=== PATIENT | female | born 1955 | race Two or more races ===

== ENCOUNTER 2024-02-09 15:45 | Inpatient (IN) | payer OTHER ==
[~2024-02-09] VITALS: Ht 121.9 cm; Wt 72.6 kg
[2024-02-09] MEDS ORDERED: COZAAR100 MG PO (15:57)
[2024-02-09] MEDS ORDERED: LIPITOR40 MG PO (15:58)
[2024-02-09] MEDS ORDERED: TOPROL XL25 M1 PO (15:58)
[2024-02-09] MEDS ORDERED: NEURONTIN300 MG PO (15:58)
[2024-02-09] MEDS ORDERED: GLIMEPIRIDE2 MG (15:59)
[2024-02-09] MEDS ORDERED: ISOSORBIDE MONO60 MG (15:59)
[2024-02-09] MEDS ORDERED: LANTUS SOL100 UNIT/1 (15:59)
--- NOTE | 2024-02-09 16:11 | NUR ---
PTE ALERTA Y ORIENTADA X3, SE MADHURI S/V. PTE REFIERE QUE DESDE HACE DOS SEMANAS PRESENTA ULCERA EN EL PIE EVELINA. SE OBNSERVA AREA INFECTADA Y CON INFLAMACION. AL MOMENTO DE TRIAGE BP 190/100, SE REALIZA EKG Y SE PRESENTA A DR. SOSA. SE UBICA EN ROZINA AREA DE OBSERVACION.
[2024-02-09] MEDS ORDERED: SODIUM CHLORIDE 0.45 % 1,000 ML IV SCH (17:00)
[2024-02-09] MEDS ORDERED: cloNIDine HCL 0.2 MG TABLET PO ONE (17:00)
[2024-02-09] MEDS ORDERED: ENALAPRILAT DIHYDRATE 2.5 MG/2 ML VIAL IV ONE (17:00)
[2024-02-09 17:49] LABS: ERYTHROCYTE SEDIMENTATION RATE 47 mm/hr
[2024-02-09 17:56] LABS: MEAN CELL VOLUME 82.9 fL (80.00-100.00); MEAN CORPUSCULAR HGB CONC 33.3 g/dl (32.0-36.0); PLATELET COUNT 299 K/uL (150-450); RED BLOOD COUNT 2.83 M/uL (4.00-6.00); RED CELL DISTRIBUTION WIDTH 13.6 % (11.5-14.5)
[2024-02-09 17:57] LABS: HEMATOCRIT 23.5 % (36.0-45.00); MEAN CORPUSCULAR HEMOGLOBIN 27.5 pg (27.00-32.0)
[2024-02-09 17:58] LABS: HEMOGLOBIN 7.8 g/dL (12.0-15.00)
[2024-02-09 18:25] LABS: ALBUMIN 2.7 gm/dL (3.4-5.0); BILIRUBIN TOTAL 0.27 mg/dL (0.3-1.2); CALCIUM 8.7 mg/dL (8.5-10.1); CREATININE SERUM 2.04 mg/dL (0.55-1.02); GFR 24.36; GLOBULINA 4.2 G/DL (2.4-3.5); POTASSIUM 4.73 mEq/L (3.5-5.1); TOTAL PROTEIN 6.9 gm/dL (6.4-8.2)
--- NOTE | 2024-02-09 18:31 | NUR ---
SE ORIENTA A PACIENTE SOBRE [place] MEDICO, REFIERE ENTENDER. SE REALIZAN MUESTRAS DE LABORATORIO BAJO MEDIDAS ASEPTICAS. SE ADMINISTRAN MEDICAMENTOS ISABELL ORDEN MEDICA. PENDIENTE RE-EVALUACION MEDICA.
[2024-02-09 19:06] LABS: C-REACTIVE PROTEIN 1.56 MG/DL (0.00-0.29)
[2024-02-09] MEDS ORDERED: FUROsemide 20 MG/2 ML VIAL IV SCH (19:30)
[2024-02-09] MEDS ORDERED: CEFTRIAXONE SODIUM 1,000 MG VIAL IV ONE (19:30)
[2024-02-09] MEDS ORDERED: hydrALAZINE HCL 20 MG VIAL IV STA (19:48)
[2024-02-09] MEDS ORDERED: AMLODIPINE BESYLATE 5 MG TABLET PO SCH (19:49)
[2024-02-09] MEDS ORDERED: hydrALAZINE HCL 20 MG VIAL IV PRN (20:00)
--- NOTE | 2024-02-09 21:40 | NUR ---
SE ORIENTA A PACIENTE SOBRE PROCESO DE TRANSFUSION, SE COLECTAN MUESTRAS PARA DOS UNIDADES DE PRBC, SE LLENA DOCUMENTO DE REQUISION Y SE LLEVAN AL LABORATORIO. SE COLECTA MUESTRA DE TIPO Y ABNER YA QUE PACIENTE NO TIENE EXPENDIENTE EN BANCO DE VEGA. PACIENTE FIRMA CONSENTIMIENTO DE TRANSFUSION DE VEGA, SE ANEJA AL EXPENDIENTE MEDICO.
[2024-02-09] MEDS ORDERED: 0.9 % SODIUM CHLORIDE 1,000 ML IV SCH (21:45)
[2024-02-09] MEDS ORDERED: LINEZOLID IN DEXTROSE 5% 300 ML IV SCH (21:53)
[2024-02-09 21:55] LABS: CHOL HDL RATIO 3.2 (0-5.0); TSH 1.98 uIU/mL (0.358-3.74)
[2024-02-09] MEDS ORDERED: CEFEPIME HCL 2,000 MG in 0.9 % SODIUM CHLORIDE 100 ML IV SCH (21:55)
[2024-02-09] MEDS ORDERED: DEXTROSE 50 % IN WATER 0.5 G/ML DISP.SYRIN IV PRN (22:00)
[2024-02-09] MEDS ORDERED: INSULIN LISPRO 1,000 UNIT/10 ML UNITS SUBCUTANEO PRN (22:00)
[2024-02-09 23:07] LABS: PH,URINE 5.5 (5.0-8.0); URINE APPEARANCE Clear; URINE BILIRRUBIN Negative (NEGATIVE); URINE BLOOD Moderate; URINE COLOR Yellow; URINE KETONE Negative (NEGATIVE); URINE LEUKOCYTE Negative; URINE NITRATE Negative; URINE UROBILINOGEN 0.2 E.U./dl
[2024-02-09 23:10] LABS: URINE BACTERIA 6491.3 uL (0.0-1933); URINE CAST 5.64 uL (0.0-1.40); URINE EPITHELIAL CELLS 49.3 uL (0.0-38.8); URINE RBC 29.3 uL (0.0-20.8); URINE WBC 43.7 uL (0.0-23.2)
[2024-02-10 00:58] LABS: URINE GLUCOSE >=1000 MG/DL (NEGATIVE); URINE PROTEIN 300 (NEGATIVE)
[2024-02-10 02:48] VITALS: BP 130/78
[2024-02-10 03:25] LABS: INR 1.02; PARTIAL THROMBOPLASTIN TIME 26.7 SECONDS (22.0-34.0); PROTHROMBIN TIME 11.1 SECONDS (9.0-11.5)
[2024-02-10 04:55] VITALS: BP 174/77; O2SAT 96
[2024-02-10] MEDS ORDERED: ATORVASTATIN CALCIUM 40 MG TABLET PO SCH (09:00)
[2024-02-10] MEDS ORDERED: METOPROLOL SUCCINATE 25 MG TAB.SR.24H PO SCH (09:00)
[2024-02-10] MEDS ORDERED: LOSARTAN POTASSIUM 100 MG TABLET PO SCH (09:00)
[2024-02-10] MEDS ORDERED: ISOSORBIDE MONONITRATE 60 MG TABLET PO SCH (09:00)
[2024-02-10] MEDS ORDERED: FAMOTIDINE/PF 20 MG in 0.9 % SODIUM CHLORIDE 8 ML IV PUSH SCH (09:00)
[2024-02-10] MEDS ORDERED: ENOXAPARIN SODIUM 30 MG/0.3 ML SYRINGE SUBCUTANEO SCH (09:00)
[2024-02-10] MEDS ORDERED: GABAPENTIN 300 MG CAPSULE PO SCH (09:00)
[2024-02-10] MEDS ORDERED: AMLODIPINE BESYLATE 5 MG TABLET PO STA (11:08)
[2024-02-10] MEDS ORDERED: SODIUM HYPOCHLORITE 1OZ TOP SCH (11:52)
[2024-02-10] MEDS ORDERED: LINEZOLID IN DEXTROSE 5% 300 ML IV SCH (17:00)
[2024-02-10 17:48] VITALS: BP 162/80; O2SAT 96
[2024-02-10] MEDS ORDERED: METOPROLOL SUCCINATE 25 MG TAB.SR.24H PO STA (17:55)
[2024-02-10] MEDS ORDERED: hydrALAZINE HCL 25 MG TABLET PO SCH (17:56)
[2024-02-10] MEDS ORDERED: ONDANSETRON HCL 2 MG/ML VIAL IV PRN (20:45)
[2024-02-10] MEDS ORDERED: PANTOPRAZOLE SODIUM 40 MG/VIAL VIAL IV PUSH ONE (20:45)
[2024-02-10] MEDS ORDERED: DOXAZOSIN MESYLATE 4 MG TABLET PO SCH (22:49)
[2024-02-10] MEDS ORDERED: HYDROCHLOROTHIAZIDE 12.5 MG CAPSULE PO SCH (22:54)
[2024-02-11 03:23] VITALS: BP 149/79; O2SAT 95
[2024-02-11 08:08] VITALS: BP 145/72; O2SAT 100
[2024-02-11] MEDS ORDERED: METOPROLOL SUCCINATE 50 MG TAB.SR.24H PO SCH (09:00)
[2024-02-11] MEDS ORDERED: SODIUM HYPOCHLORITE 1OZ TOP SCH (09:00)
[2024-02-11] MEDS ORDERED: IRBESARTAN 300 MG TABLET PO SCH (09:00)
[2024-02-11] MEDS ORDERED: LINEZOLID 600 MG TABLET PO SCH ×2 (09:00→17:00)
[2024-02-11] MEDS ORDERED: NIFEDIPINE 60 MG TAB.SA.OSM PO SCH (09:00)
[2024-02-11] MEDS ORDERED: AMLODIPINE BESYLATE 10 MG TABLET PO SCH (09:00)
[2024-02-11] MEDS ORDERED: METROnidazole 500 MG TABLET PO SCH (09:00)
[2024-02-11] MEDS ORDERED: BENZONATATE 100 MG CAPSULE PO SCH (09:00)
[2024-02-11] MEDS ORDERED: PANTOPRAZOLE SODIUM 40 MG TABLET.DR PO SCH (09:00)
[2024-02-11 10:22] VITALS: BP 145/72; O2SAT 99
[2024-02-11 13:21] LABS: HEMATOCRIT 29.1 % (36.0-45.00); MEAN CELL VOLUME 88.7 fL (80.00-100.00); MEAN CORPUSCULAR HGB CONC 32.8 g/dl (32.0-36.0); PLATELET COUNT 245 K/uL (150-450); RED BLOOD COUNT 3.28 M/uL (4.00-6.00); RED CELL DISTRIBUTION WIDTH 15.2 % (11.5-14.5)
[2024-02-11 13:48] LABS: HEMOGLOBIN 9.6 g/dL (12.0-15.00); MEAN CORPUSCULAR HEMOGLOBIN 29.2 pg (27.00-32.0)
[2024-02-11] MEDS ORDERED: DIPHENHYDRAMINE HCL 50 MG/ML VIAL 1ML IV STA (14:03)
[2024-02-11] MEDS ORDERED: MORPHINE SULFATE 2 MG/ML CARTRIDGE IV STA (14:03)
[2024-02-11] MEDS ORDERED: KETOROLAC TROMETHAMINE 30 MG VIAL IV STA (14:04)
[2024-02-11 14:47] LABS: ALBUMIN 2.7 gm/dL (3.4-5.0); BILIRUBIN TOTAL 0.68 mg/dL (0.3-1.2); CALCIUM 8.4 mg/dL (8.5-10.1); CREATININE SERUM 2.3 mg/dL (0.55-1.02); GFR 21.21; GLOBULINA 3.6 G/DL (2.4-3.5); MAGNESIUM 2.1 mg/dL (1.8-2.4); PHOSPHOROUS 5.8 mg/dL (2.5-4.9); POTASSIUM 5.2 mEq/L (3.5-5.1); TOTAL PROTEIN 6.3 gm/dL (6.4-8.2)
[2024-02-11] MEDS ORDERED: hydrALAZINE HCL 25 MG TABLET PO SCH (17:00)
[2024-02-11] MEDS ORDERED: RINGERS SOLUTION,LACTATED 250 ML IV STA (20:18)
[2024-02-11] MEDS ORDERED: SODIUM POLYSTYRENE SULFONATE 30G/8 TSP PO ONE (20:30)
[2024-02-11] MEDS ORDERED: Calcium Acetate 667 MG CAP PO SCH (20:30)
[2024-02-11] MEDS ORDERED: GABAPENTIN 600 MG TABLET PO SCH (21:00)
[2024-02-11 21:34] VITALS: BP 88/49; O2SAT 100
[2024-02-12] VITALS (25 sets, daily range): BP systolic 65–196; BP diastolic 34–90; O2SAT 81–100
[2024-02-12] MEDS ORDERED: ATROPINE SULFATE 0.4 MG/ML VIAL IV STA (00:20)
[2024-02-12] MEDS ORDERED: DOPamine HCL IN DEXTROSE 5 % 250 ML IV SCH ×2 (00:30→08:45)
[2024-02-12] MEDS ORDERED: RINGERS SOLUTION,LACTATED 1,000 ML IV STA (00:31)
[2024-02-12] MEDS ORDERED: SODIUM BICARBONATE 1 MEQ/ML DISP.SYRIN 50ML IV ONE ×2 (01:15→09:15)
[2024-02-12 01:27] LABS: HEMATOCRIT 26.6 % (36.0-45.00); MEAN CELL VOLUME 87.2 fL (80.00-100.00); MEAN CORPUSCULAR HGB CONC 33.5 g/dl (32.0-36.0); PLATELET COUNT 241 K/uL (150-450); RED BLOOD COUNT 3.05 M/uL (4.00-6.00); RED CELL DISTRIBUTION WIDTH 15.4 % (11.5-14.5)
[2024-02-12 01:40] LABS: MEAN CORPUSCULAR HEMOGLOBIN 29.1 pg (27.00-32.0)
[2024-02-12 01:41] LABS: HEMOGLOBIN 8.9 g/dL (12.0-15.00)
[2024-02-12 01:53] LABS: ALBUMIN 2.5 gm/dL (3.4-5.0); BILIRUBIN TOTAL 0.39 mg/dL (0.3-1.2); CALCIUM 8.3 mg/dL (8.5-10.1); CREATININE SERUM 2.68 mg/dL (0.55-1.02); GFR 17.73; MAGNESIUM 2.3 mg/dL (1.8-2.4); PHOSPHOROUS 6.3 mg/dL (2.5-4.9); POTASSIUM 5.75 mEq/L (3.5-5.1); TOTAL PROTEIN 5.5 gm/dL (6.4-8.2)
[2024-02-12] MEDS ORDERED: SODIUM BICARBONATE 100 MEQ in SODIUM CHLORIDE 0.45 % 1,000 ML IV SCH ×2 (02:00→08:45)
[2024-02-12 02:12] LABS: TSH 2.72 uIU/mL (0.358-3.74)
[2024-02-12] MEDS ORDERED: SODIUM POLYSTYRENE SULFONATE 30G/8 TSP PO SCH (02:19)
[2024-02-12 02:48] LABS: ABG PO2 106.4 mmHg (80-100); ABG pCO2 53.9 mmHg (35-45); BASE EXCESS -11.4 mmol/l; BICARBONATE 17.9 mmol/l (23-25); SaO2 95.2 %; Tco2 19.6 mmol/l
[2024-02-12 02:49] LABS: allen test SATISFACTORY; o2 28 %; puncture site RADIAL RIGHT
[2024-02-12] MEDS ORDERED: METRONIDAZOLE/SODIUM CHLORIDE 100 ML IV SCH (02:59)
[2024-02-12 06:31] LABS: ABG pCO2 50.1 mmHg (35-45); BICARBONATE 17.6 mmol/l (23-25); Tco2 19.1 mmol/l; allen test SATISFACTORY; o2 32 %; puncture site RADIAL RIGHT
[2024-02-12 06:32] LABS: ABG PH 7.163 (7.35-7.45)
[2024-02-12 06:33] LABS: ABG PO2 59.8 mmHg (80-100); SaO2 80.3 %
[2024-02-12 06:35] LABS: BASE EXCESS 11.1 mmol/l
[2024-02-12 08:30] LABS: HEMATOCRIT 27.7 % (36.0-45.00); HEMOGLOBIN 9.4 g/dL (12.0-15.00); MEAN CELL VOLUME 87.3 fL (80.00-100.00); MEAN CORPUSCULAR HEMOGLOBIN 29.5 pg (27.00-32.0); MEAN CORPUSCULAR HGB CONC 33.8 g/dl (32.0-36.0); PLATELET COUNT 260 K/uL (150-450); RED BLOOD COUNT 3.17 M/uL (4.00-6.00); RED CELL DISTRIBUTION WIDTH 15.2 % (11.5-14.5)
[2024-02-12 08:57] LABS: ABG PO2 80.9 mmHg (80-100); ABG pCO2 52.3 mmHg (35-45); BASE EXCESS -8.8 mmol/l; BICARBONATE 19.7 mmol/l (23-25); SaO2 91.7 %; Tco2 21.3 mmol/l
[2024-02-12] MEDS ORDERED: AMINO ACIDS/PROTEIN HYDROLYS 30 ML BLIST.PACK PO SCH (09:00)
[2024-02-12] MEDS ORDERED: SOD FERRIC GLUC COMPLX/SUCROSE 62.5 MG in 0.9 % SODIUM CHLORIDE 50 ML IV SCH (09:00)
[2024-02-12] MEDS ORDERED: CEFEPIME HCL 2,000 MG in 0.9 % SODIUM CHLORIDE 100 ML IV SCH (09:00)
[2024-02-12] MEDS ORDERED: PANTOPRAZOLE SODIUM 40 MG/VIAL VIAL IV SCH (09:00)
[2024-02-12 09:27] LABS: ALBUMIN 2.7 gm/dL (3.4-5.0); BILIRUBIN TOTAL 0.48 mg/dL (0.3-1.2); CREATININE SERUM 2.79 mg/dL (0.55-1.02); GFR 16.92; GLOBULINA 3.6 G/DL (2.4-3.5); PHOSPHOROUS 6.3 mg/dL (2.5-4.9); POTASSIUM 5.84 mEq/L (3.5-5.1); TOTAL PROTEIN 6.3 gm/dL (6.4-8.2)
[2024-02-12] MEDS ORDERED: NOREPINEPHRINE BITARTRATE 8 MG in DEXTROSE 5 % IN WATER 250 ML IV SCH (12:15)
[2024-02-12] MEDS ORDERED: ATROPINE SULFATE 0.1 MG/ML DISP.SYRIN IV STA (12:25)
[2024-02-12 12:26] LABS: ABG PH 7.194 (7.35-7.45)
[2024-02-12 12:27] LABS: allen test SATISFACTORY; o2 50 %; puncture site RADIAL LEFT
[2024-02-12] MEDS ORDERED: PROPOFOL 100 ML IV SCH (12:30)
[2024-02-12 14:38] LABS: ABG PO2 60.8 mmHg (80-100); ABG pCO2 63.2 mmHg (35-45); BASE EXCESS -7.1 mmol/l; BICARBONATE 22.5 mmol/l (23-25); SaO2 81.9 %; Tco2 24.5 mmol/l
[2024-02-12 14:39] LABS: allen test SATISFACTORY; o2 100 %; puncture site RADIAL RIGHT
[2024-02-12] MEDS ORDERED: CARBOXYMETHYLCELLULOSE SODIUM 1 EACH DROPERETTE OP SCH (17:00)
[2024-02-12] MEDS ORDERED: CHLORHEXIDINE GLUCONATE 15ML BRUSH KIT MM SCH (17:00)
[2024-02-12] MEDS ORDERED: MEROPENEM 500 MG/VIAL VIAL IV SCH (17:24)
[2024-02-12] MEDS ORDERED: MIDAZOLAM HCL 100 MG in 0.9 % SODIUM CHLORIDE 100 ML IV SCH (18:45)
[2024-02-12 19:27] LABS: BASE EXCESS -7.7 mmol/l; BICARBONATE 22.8 mmol/l (23-25); SaO2 53.4 %; Tco2 24.9 mmol/l
[2024-02-12 20:26] LABS: ABG PH 7.133 (7.35-7.45); ABG pCO2 69.6 mmHg (35-45)
[2024-02-12 20:27] LABS: ABG PO2 39.1 mmHg (80-100); o2 100 %
[2024-02-12 20:28] LABS: allen test SATISFACTORY; puncture site RADIAL RIGHT
[2024-02-12 20:56] LABS: ABG PH 7.271 (7.35-7.45); ABG PO2 425.9 mmHg (80-100); ABG pCO2 45.4 mmHg (35-45); BASE EXCESS -6.4 mmol/l; BICARBONATE 20.5 mmol/l (23-25); SaO2 99.9 %; Tco2 21.9 mmol/l; allen test SATISFACTORY; o2 100 %; puncture site RADIAL RIGHT
[2024-02-12] MEDS ORDERED: METHYLPREDNISOLONE SOD SUCC 40 MG VIAL IV SCH (21:00)
[2024-02-12] MEDS ORDERED: SODIUM POLYSTYRENE SULFONATE 30G/8 TSP PO STA (21:01)
[2024-02-13] VITALS (24 sets, daily range): BP systolic 121–178; BP diastolic 58–88; O2SAT 100
[2024-02-13 08:20] LABS: HEMATOCRIT 27.7 % (36.0-45.00); HEMOGLOBIN 9.6 g/dL (12.0-15.00); MEAN CELL VOLUME 86.5 fL (80.00-100.00); MEAN CORPUSCULAR HGB CONC 34.7 g/dl (32.0-36.0); PLATELET COUNT 244 K/uL (150-450); RED BLOOD COUNT 3.21 M/uL (4.00-6.00); RED CELL DISTRIBUTION WIDTH 15.5 % (11.5-14.5)
[2024-02-13 08:37] LABS: ALBUMIN 2.4 gm/dL (3.4-5.0); BILIRUBIN TOTAL 0.52 mg/dL (0.3-1.2); CALCIUM 7.7 mg/dL (8.5-10.1); CREATININE SERUM 3.21 mg/dL (0.55-1.02); GFR 14.4; GLOBULINA 3.4 G/DL (2.4-3.5); MAGNESIUM 1.9 mg/dL (1.8-2.4); POTASSIUM 4.88 mEq/L (3.5-5.1); TOTAL PROTEIN 5.8 gm/dL (6.4-8.2)
[2024-02-13 08:43] LABS: ABG PH 7.483 (7.35-7.45); ABG PO2 128.9 mmHg (80-100); ABG pCO2 27.5 mmHg (35-45); BASE EXCESS -1.7 mmol/l; BICARBONATE 20.2 mmol/l (23-25); SaO2 99.1 %; allen test SATISFACTORY; o2 70 %; puncture site RADIAL LEFT
[2024-02-13] MEDS ORDERED: hydrALAZINE HCL 20 MG VIAL IV PRN (12:15)
[2024-02-13] MEDS ORDERED: AA 4.25%/CAL/LYTES/DEXT 5% 1,000 ML PERIFERAL SCH (17:00)
[2024-02-13 17:21] LABS: CHOL HDL RATIO 2.1 (0-5.0)
[2024-02-14] VITALS (12 sets, daily range): BP systolic 133–182; BP diastolic 58–84; O2SAT 100
[2024-02-14 06:28] LABS: HEMATOCRIT 24.7 % (36.0-45.00); MEAN CELL VOLUME 85.2 fL (80.00-100.00); MEAN CORPUSCULAR HGB CONC 34.7 g/dl (32.0-36.0); PLATELET COUNT 207 K/uL (150-450); RED BLOOD COUNT 2.89 M/uL (4.00-6.00); RED CELL DISTRIBUTION WIDTH 16.3 % (11.5-14.5)
[2024-02-14 06:53] LABS: MEAN CORPUSCULAR HEMOGLOBIN 29.7 pg (27.00-32.0)
[2024-02-14 06:54] LABS: HEMOGLOBIN 8.6 g/dL (12.0-15.00)
[2024-02-14 07:00] LABS: ALBUMIN 1.9 gm/dL (3.4-5.0); BILIRUBIN TOTAL 0.39 mg/dL (0.3-1.2); CALCIUM 7.4 mg/dL (8.5-10.1); CREATININE SERUM 3.45 mg/dL (0.55-1.02); GFR 13.25; MAGNESIUM 1.8 mg/dL (1.8-2.4); PHOSPHOROUS 5.8 mg/dL (2.5-4.9); POTASSIUM 3.75 mEq/L (3.5-5.1); TOTAL PROTEIN 4.9 gm/dL (6.4-8.2)
[2024-02-14] MEDS ORDERED: hydrALAZINE HCL 25 MG TABLET PO SCH (09:00)
[2024-02-14 10:00] LABS: ABG PH 7.446 (7.35-7.45); ABG PO2 144.9 mmHg (80-100); BASE EXCESS -0.5 mmol/l; BICARBONATE 22.9 mmol/l (23-25); SaO2 99.3 %; Tco2 23.9 mmol/l
[2024-02-14 10:01] LABS: allen test SATISFACTORY; o2 40 %; puncture site RADIAL RIGHT
[2024-02-14] MEDS ORDERED: ALBUMIN HUMAN 100 ML VIAL IV SCH (13:00)
[2024-02-14] MEDS ORDERED: LINEZOLID 600 MG TABLET PO SCH (17:00)
[2024-02-14] MEDS ORDERED: RINGERS SOLUTION,LACTATED 500 ML IV STA (17:39)
[2024-02-15] VITALS (13 sets, daily range): BP systolic 149–189; BP diastolic 67–83; O2SAT 100
[2024-02-15 06:56] LABS: HEMATOCRIT 27.1 % (36.0-45.00); HEMOGLOBIN 9.2 g/dL (12.0-15.00); MEAN CELL VOLUME 86.5 fL (80.00-100.00); MEAN CORPUSCULAR HEMOGLOBIN 29.3 pg (27.00-32.0); MEAN CORPUSCULAR HGB CONC 33.9 g/dl (32.0-36.0); PLATELET COUNT 241 K/uL (150-450); RED BLOOD COUNT 3.13 M/uL (4.00-6.00); RED CELL DISTRIBUTION WIDTH 16.6 % (11.5-14.5)
[2024-02-15 07:15] LABS: ALBUMIN 2.7 gm/dL (3.4-5.0); BILIRUBIN TOTAL 0.42 mg/dL (0.3-1.2); CALCIUM 7.8 mg/dL (8.5-10.1); CREATININE SERUM 3.54 mg/dL (0.55-1.02); GFR 12.86; GLOBULINA 2.9 G/DL (2.4-3.5); MAGNESIUM 2.2 mg/dL (1.8-2.4); PHOSPHOROUS 5.9 mg/dL (2.5-4.9); POTASSIUM 3.46 mEq/L (3.5-5.1); TOTAL PROTEIN 5.6 gm/dL (6.4-8.2)
[2024-02-15] MEDS ORDERED: POTASSIUM CHLORIDE 20MEQ/100ML H2O PB IV NR (08:00)
[2024-02-15] MEDS ORDERED: INSULIN NPH HUMAN ISOPHANE 1,000 UNITS/10 ML UNITS SUBCUTANEO SCH (09:00)
[2024-02-15 09:40] LABS: ABG PH 7.416 (7.35-7.45); ABG PO2 162.2 mmHg (80-100); ABG pCO2 33.1 mmHg (35-45); BASE EXCESS -2.8 mmol/l; BICARBONATE 20.8 mmol/l (23-25); SaO2 99.4 %; Tco2 21.8 mmol/l
[2024-02-15] MEDS ORDERED: RINGERS SOLUTION,LACTATED 1,000 ML IV SCH (11:00)
[2024-02-15 15:43] LABS: allen test SATISFACTORY; o2 40 %; puncture site RADIAL RIGHT
[2024-02-15] MEDS ORDERED: AMLODIPINE BESYLATE 5 MG TABLET PO SCH (20:20)
[2024-02-15 21:15] LABS: PLEURAL FLUID APPEARANCE HAZY; PLEURAL FLUID COLOR YELLOW
[2024-02-15 21:41] LABS: TP PLEURAL FLUID 1.9 g/dl
[2024-02-15 22:27] LABS: MONONUCLEAR 95 %; POLYMORPHONUCLEAR 5 %
[2024-02-16] VITALS (15 sets, daily range): BP systolic 140–188; BP diastolic 69–101; O2SAT 100
[2024-02-16 06:24] LABS: HEMATOCRIT 30.3 % (36.0-45.00); HEMOGLOBIN 10.2 g/dL (12.0-15.00); MEAN CELL VOLUME 86.6 fL (80.00-100.00); MEAN CORPUSCULAR HEMOGLOBIN 29.1 pg (27.00-32.0); MEAN CORPUSCULAR HGB CONC 33.6 g/dl (32.0-36.0); PLATELET COUNT 273 K/uL (150-450); RED CELL DISTRIBUTION WIDTH 16.3 % (11.5-14.5)
[2024-02-16 06:41] LABS: ALBUMIN 2.8 gm/dL (3.4-5.0); BILIRUBIN TOTAL 0.29 mg/dL (0.3-1.2); CALCIUM 8.2 mg/dL (8.5-10.1); CREATININE SERUM 3.41 mg/dL (0.55-1.02); GFR 13.43; PHOSPHOROUS 5.8 mg/dL (2.5-4.9); POTASSIUM 3.9 mEq/L (3.5-5.1); TOTAL PROTEIN 5.8 gm/dL (6.4-8.2)
[2024-02-16 10:56] LABS: ABG PH 7.445 (7.35-7.45); ABG PO2 136.5 mmHg (80-100); ABG pCO2 32.7 mmHg (35-45); BASE EXCESS -1.2 mmol/l; SaO2 99.2 %
[2024-02-16 10:57] LABS: allen test SATISFACTORY; o2 40 %; puncture site RADIAL RIGHT
[2024-02-16] MEDS ORDERED: ISOSORBIDE MONONITRATE 30 MG TABLET PO SCH (18:49)
[2024-02-16] MEDS ORDERED: MIDAZOLAM HCL 100 MG in 0.9 % SODIUM CHLORIDE 100 ML IV SCH (19:00)
[2024-02-17] VITALS (9 sets, daily range): BP systolic 150–185; BP diastolic 72–91; O2SAT 100
[2024-02-17] MEDS ORDERED: LACTOBACILLUS ACIDOPHILUS 1 CAP CAP PO SCH (09:00)
[2024-02-17] MEDS ORDERED: ISOSORBIDE DINITRATE 20 MG TABLET PO SCH (09:00)
[2024-02-17] MEDS ORDERED: ISOSORBIDE MONONITRATE 30 MG TABLET PO SCH (09:00)
[2024-02-17] MEDS ORDERED: ISOSORBIDE DINITRATE 10 MG TABLET PO SCH (09:00)
[2024-02-17] MEDS ORDERED: PANTOPRAZOLE SODIUM 80 MG in 0.9 % SODIUM CHLORIDE 100 ML IV SCH (10:15)
[2024-02-17 11:41] LABS: ABG PH 7.379 (7.35-7.45); ABG PO2 155.9 mmHg (80-100); ABG pCO2 39.4 mmHg (35-45); BASE EXCESS -2.1 mmol/l; BICARBONATE 22.7 mmol/l (23-25); SaO2 99.3 %
[2024-02-17 11:42] LABS: allen test SATISFACTORY; o2 40 %; puncture site RADIAL RIGHT
[2024-02-17 13:50] LABS: ABG PH 7.365 (7.35-7.45); ABG PO2 159.3 mmHg (80-100); ABG pCO2 40.5 mmHg (35-45); BASE EXCESS -2.5 mmol/l; BICARBONATE 22.6 mmol/l (23-25); SaO2 99.3 %; Tco2 23.9 mmol/l; allen test SATISFACTORY; o2 40 %; puncture site RADIAL RIGHT
[2024-02-17] MEDS ORDERED: AA 4.25%/CAL/LYTES/DEXT 5% 1,000 ML PERIFERAL SCH (17:00)
[2024-02-17] MEDS ORDERED: LEVALBUTEROL HCL 0.63 MG/3 ML SOLUTION IH SCH (17:00)
[2024-02-17 18:19] LABS: ABG PH 7.384 (7.35-7.45); ABG PO2 112.5 mmHg (80-100); ABG pCO2 38.3 mmHg (35-45); BASE EXCESS -2.3 mmol/l; BICARBONATE 22.3 mmol/l (23-25); SaO2 98.2 %; Tco2 23.5 mmol/l
[2024-02-17 18:33] LABS: allen test SATISFACTORY; o2 50 %; puncture site RADIAL RIGHT
[2024-02-17] MEDS ORDERED: CLEVIDIPINE BUTYRATE 100 ML IV SCH (22:15)
[2024-02-18] VITALS (28 sets, daily range): BP systolic 135–182; BP diastolic 55–86; O2SAT 100
[2024-02-18] MEDS ORDERED: hydrALAZINE HCL 25 MG TABLET PO SCH (01:00)
[2024-02-18 06:45] LABS: HEMATOCRIT 28.9 % (36.0-45.00); HEMOGLOBIN 9.8 g/dL (12.0-15.00); MEAN CORPUSCULAR HEMOGLOBIN 29.5 pg (27.00-32.0); MEAN CORPUSCULAR HGB CONC 33.9 g/dl (32.0-36.0); PLATELET COUNT 262 K/uL (150-450); RED BLOOD COUNT 3.33 M/uL (4.00-6.00); RED CELL DISTRIBUTION WIDTH 15.5 % (11.5-14.5)
[2024-02-18 07:25] LABS: ALBUMIN 2.3 gm/dL (3.4-5.0); BILIRUBIN TOTAL 0.26 mg/dL (0.3-1.2); CALCIUM 8.2 mg/dL (8.5-10.1); CREATININE SERUM 3.2 mg/dL (0.55-1.02); GFR 14.45; GLOBULINA 2.8 G/DL (2.4-3.5); MAGNESIUM 2.2 mg/dL (1.8-2.4); POTASSIUM 4.32 mEq/L (3.5-5.1); TOTAL PROTEIN 5.1 gm/dL (6.4-8.2)
[2024-02-18] MEDS ORDERED: hydrALAZINE HCL 50 MG TABLET PO SCH (09:00)
[2024-02-18] MEDS ORDERED: CLEVIDIPINE BUTYRATE 100 ML IV SCH ×2 (09:00→10:15)
[2024-02-18] MEDS ORDERED: ONDANSETRON HCL 2 MG/ML VIAL IV PRN (14:15)
[2024-02-19] VITALS (26 sets, daily range): BP systolic 144–287; BP diastolic 62–125; O2SAT 100
[2024-02-19 08:05] LABS: ALBUMIN 2.3 gm/dL (3.4-5.0); BILIRUBIN TOTAL 0.29 mg/dL (0.3-1.2); CALCIUM 8.3 mg/dL (8.5-10.1); CREATININE SERUM 3.22 mg/dL (0.55-1.02); GFR 14.34; GLOBULINA 2.7 G/DL (2.4-3.5); POTASSIUM 4.58 mEq/L (3.5-5.1)
[2024-02-19 08:17] LABS: HEMATOCRIT 26.9 % (36.0-45.00); MEAN CELL VOLUME 86.8 fL (80.00-100.00); MEAN CORPUSCULAR HEMOGLOBIN 28.7 pg (27.00-32.0); PLATELET COUNT 210 K/uL (150-450); RED CELL DISTRIBUTION WIDTH 15.8 % (11.5-14.5)
[2024-02-19 08:22] LABS: HEMOGLOBIN 8.9 g/dL (12.0-15.00)
[2024-02-19] MEDS ORDERED: FUROsemide 20 MG/2 ML VIAL IV NR (10:05)
[2024-02-19] MEDS ORDERED: hydrALAZINE HCL 20 MG VIAL IV NR (14:30)
[2024-02-19] MEDS ORDERED: LINEZOLID IN DEXTROSE 5% 300 ML IV SCH (17:00)
[2024-02-19] MEDS ORDERED: FUROsemide 20 MG/2 ML VIAL IV SCH (21:00)
[2024-02-19] MEDS ORDERED: hydrALAZINE HCL 20 MG VIAL IV SCH (21:00)
[2024-02-20] VITALS (22 sets, daily range): BP systolic 112–186; BP diastolic 61–164; O2SAT 100
[2024-02-20 07:42] LABS: ALBUMIN 2.2 gm/dL (3.4-5.0); BILIRUBIN TOTAL 0.27 mg/dL (0.3-1.2); CALCIUM 8.2 mg/dL (8.5-10.1); CREATININE SERUM 3.22 mg/dL (0.55-1.02); GFR 14.34; GLOBULINA 2.7 G/DL (2.4-3.5); POTASSIUM 4.5 mEq/L (3.5-5.1); TOTAL PROTEIN 4.9 gm/dL (6.4-8.2)
[2024-02-20 08:00] LABS: HEMATOCRIT 24.5 % (36.0-45.00); MEAN CELL VOLUME 85.5 fL (80.00-100.00); MEAN CORPUSCULAR HGB CONC 34.9 g/dl (32.0-36.0); PLATELET COUNT 184 K/uL (150-450); RED BLOOD COUNT 2.87 M/uL (4.00-6.00); RED CELL DISTRIBUTION WIDTH 15.8 % (11.5-14.5)
[2024-02-20 08:33] LABS: HEMOGLOBIN 8.6 g/dL (12.0-15.00); MEAN CORPUSCULAR HEMOGLOBIN 29.9 pg (27.00-32.0)
[2024-02-20] MEDS ORDERED: SOD FERRIC GLUC COMPLX/SUCROSE 62.5 MG in 0.9 % SODIUM CHLORIDE 50 ML IV SCH (12:00)
[2024-02-20] MEDS ORDERED: POTASSIUM CHLORIDE IN WATER 40 MEQ/100 ML PIGGYBAG IV SCH (13:00)
[2024-02-21] VITALS (16 sets, daily range): BP systolic 113–180; BP diastolic 51–99; O2SAT 98–105
[2024-02-21 06:45] LABS: INR 0.97; PARTIAL THROMBOPLASTIN TIME 26.7 SECONDS (22.0-34.0); PROTHROMBIN TIME 10.6 SECONDS (9.0-11.5)
[2024-02-21 07:05] LABS: MEAN CELL VOLUME 87.4 fL (80.00-100.00); MEAN CORPUSCULAR HGB CONC 33.3 g/dl (32.0-36.0); PLATELET COUNT 181 K/uL (150-450); RED BLOOD COUNT 2.86 M/uL (4.00-6.00); RED CELL DISTRIBUTION WIDTH 15.7 % (11.5-14.5)
[2024-02-21 07:17] LABS: ALBUMIN 2.3 gm/dL (3.4-5.0); BILIRUBIN TOTAL 0.34 mg/dL (0.3-1.2); CALCIUM 8.5 mg/dL (8.5-10.1); CHOL HDL RATIO 2.2 (0-5.0); CREATININE SERUM 3.18 mg/dL (0.55-1.02); GFR 14.55; GLOBULINA 2.9 G/DL (2.4-3.5); MAGNESIUM 2.3 mg/dL (1.8-2.4); PHOSPHOROUS 7.5 mg/dL (2.5-4.9); POTASSIUM 5.04 mEq/L (3.5-5.1); TOTAL PROTEIN 5.2 gm/dL (6.4-8.2)
[2024-02-21 07:20] LABS: HEMOGLOBIN 8.3 g/dL (12.0-15.00)
[2024-02-21 10:44] LABS: UREA CLEARANCE 3.2 ML/MIN
[2024-02-21] MEDS ORDERED: Calcium Acetate 667 MG CAP PO SCH (13:00)
[2024-02-21] MEDS ORDERED: AMLODIPINE BESYLATE 5 MG TABLET PO NR (14:10)
[2024-02-22 04:00] VITALS: BP 135/63; O2SAT 100
[2024-02-22 06:49] LABS: MEAN CELL VOLUME 86.7 fL (80.00-100.00); PLATELET COUNT 171 K/uL (150-450); RED BLOOD COUNT 2.69 M/uL (4.00-6.00); RED CELL DISTRIBUTION WIDTH 15.7 % (11.5-14.5)
[2024-02-22 06:59] LABS: HEMATOCRIT 23.3 % (36.0-45.00); MEAN CORPUSCULAR HEMOGLOBIN 29.3 pg (27.00-32.0)
[2024-02-22 07:00] LABS: HEMOGLOBIN 7.9 g/dL (12.0-15.00)
[2024-02-22 07:19] LABS: ALBUMIN 2.1 gm/dL (3.4-5.0); BILIRUBIN TOTAL 0.26 mg/dL (0.3-1.2); CALCIUM 8.7 mg/dL (8.5-10.1); CREATININE SERUM 3.46 mg/dL (0.55-1.02); GFR 13.2; GLOBULINA 3.5 G/DL (2.4-3.5); MAGNESIUM 2.5 mg/dL (1.8-2.4); PHOSPHOROUS 8.3 mg/dL (2.5-4.9); POTASSIUM 4.87 mEq/L (3.5-5.1); TOTAL PROTEIN 5.6 gm/dL (6.4-8.2)
[2024-02-22 07:31] VITALS: BP 143/67; O2SAT 100
[2024-02-22] MEDS ORDERED: AMLODIPINE BESYLATE 5 MG TABLET PO SCH (09:00)
[2024-02-22] MEDS ORDERED: BUMETANIDE 2.5 MG/10 ML VIAL IV NR (11:00)
[2024-02-22 12:00] VITALS: BP 119/49; O2SAT 100
[2024-02-22 16:00] VITALS: BP 98/45; O2SAT 100
[2024-02-22 20:00] VITALS: BP 157/65; O2SAT 100
[2024-02-22] MEDS ORDERED: BUMETANIDE 2.5 MG/10 ML VIAL IV SCH (21:00)
[2024-02-22 23:31] LABS: HEMOGLOBIN 10.7 g/dL (12.0-15.00); MEAN CELL VOLUME 88.5 fL (80.00-100.00); MEAN CORPUSCULAR HEMOGLOBIN 28.7 pg (27.00-32.0); MEAN CORPUSCULAR HGB CONC 32.4 g/dl (32.0-36.0); PLATELET COUNT 163 K/uL (150-450); RED BLOOD COUNT 3.73 M/uL (4.00-6.00); RED CELL DISTRIBUTION WIDTH 14.5 % (11.5-14.5)
[2024-02-22 23:42] VITALS: BP 133/59; O2SAT 98
[2024-02-23 04:07] VITALS: BP 131/64; O2SAT 96
[2024-02-23 06:52] LABS: HEMATOCRIT 31.2 % (36.0-45.00); HEMOGLOBIN 10.8 g/dL (12.0-15.00); MEAN CELL VOLUME 86.8 fL (80.00-100.00); MEAN CORPUSCULAR HEMOGLOBIN 29.9 pg (27.00-32.0); MEAN CORPUSCULAR HGB CONC 34.5 g/dl (32.0-36.0); PLATELET COUNT 163 K/uL (150-450); RED CELL DISTRIBUTION WIDTH 15.1 % (11.5-14.5)
[2024-02-23 07:20] LABS: ALBUMIN 2.3 gm/dL (3.4-5.0); BILIRUBIN TOTAL 0.4 mg/dL (0.3-1.2); CALCIUM 8.5 mg/dL (8.5-10.1); CREATININE SERUM 2.73 mg/dL (0.55-1.02); GFR 17.35; PHOSPHOROUS 6.9 mg/dL (2.5-4.9); POTASSIUM 4.56 mEq/L (3.5-5.1); TOTAL PROTEIN 5.3 gm/dL (6.4-8.2)
[2024-02-23 07:41] VITALS: BP 139/63; O2SAT 100
[2024-02-23] MEDS ORDERED: hydrALAZINE HCL 20 MG VIAL IV PRN (07:50)
[2024-02-23 11:59] VITALS: BP 131/58; O2SAT 100
[2024-02-23 17:00] VITALS: O2SAT 97
[2024-02-23 18:39] VITALS: BP 176/63
[2024-02-23] MEDS ORDERED: MEROPENEM 500 MG/VIAL VIAL IV SCH (21:00)
[2024-02-23] MEDS ORDERED: PANTOPRAZOLE SODIUM 40 MG/VIAL VIAL IV SCH (21:00)
[2024-02-23] MEDS ORDERED: AMLODIPINE BESYLATE 5 MG TABLET PO SCH (23:43)
[2024-02-24 02:03] VITALS: BP 130/68; O2SAT 99
[2024-02-24 09:15] VITALS: BP 176/74; O2SAT 95
[2024-02-24 13:43] LABS: HEMATOCRIT 31.2 % (36.0-45.00); HEMOGLOBIN 10.6 g/dL (12.0-15.00); MEAN CELL VOLUME 87.1 fL (80.00-100.00); MEAN CORPUSCULAR HEMOGLOBIN 29.5 pg (27.00-32.0); MEAN CORPUSCULAR HGB CONC 33.9 g/dl (32.0-36.0); PLATELET COUNT 171 K/uL (150-450); RED BLOOD COUNT 3.58 M/uL (4.00-6.00); RED CELL DISTRIBUTION WIDTH 15.5 % (11.5-14.5)
[2024-02-24 14:41] LABS: ALBUMIN 2.4 gm/dL (3.4-5.0); BILIRUBIN TOTAL 0.31 mg/dL (0.3-1.2); CALCIUM 8.7 mg/dL (8.5-10.1); CREATININE SERUM 3.2 mg/dL (0.55-1.02); GFR 14.45; MAGNESIUM 2.2 mg/dL (1.8-2.4); PHOSPHOROUS 7.2 mg/dL (2.5-4.9); POTASSIUM 5.17 mEq/L (3.5-5.1); TOTAL PROTEIN 5.4 gm/dL (6.4-8.2)
[2024-02-24 17:15] VITALS: O2SAT 90
[2024-02-24 18:12] VITALS: BP 202/73; O2SAT 93
[2024-02-24 18:37] LABS: ABG PH 7.285 (7.35-7.45); ABG PO2 49.3 mmHg (80-100); ABG pCO2 50.4 mmHg (35-45); BASE EXCESS -3.7 mmol/l; BICARBONATE 23.4 mmol/l (23-25); SaO2 78.6 %
[2024-02-24 18:38] LABS: allen test SATISFACTORY; o2 21 %; puncture site RADIAL RIGHT
[2024-02-24] MEDS ORDERED: BUMETANIDE 2.5 MG/10 ML VIAL IV SCH (21:00)
[2024-02-24] MEDS ORDERED: hydrALAZINE HCL 20 MG VIAL IV PRN (21:58)
[2024-02-24 22:08] VITALS: BP 176/81; O2SAT 94
[2024-02-25] VITALS (16 sets, daily range): BP systolic 170–242; BP diastolic 55–101; O2SAT 95–100
[2024-02-25] MEDS ORDERED: hydrALAZINE HCL 50 MG TABLET PO SCH (01:00)
[2024-02-25 06:51] LABS: HEMATOCRIT 29.3 % (36.0-45.00); HEMOGLOBIN 10.1 g/dL (12.0-15.00); MEAN CELL VOLUME 86.1 fL (80.00-100.00); MEAN CORPUSCULAR HEMOGLOBIN 29.7 pg (27.00-32.0); MEAN CORPUSCULAR HGB CONC 34.5 g/dl (32.0-36.0); PLATELET COUNT 172 K/uL (150-450); RED CELL DISTRIBUTION WIDTH 14.9 % (11.5-14.5)
[2024-02-25 07:10] LABS: ALBUMIN 2.3 gm/dL (3.4-5.0); BILIRUBIN TOTAL 0.36 mg/dL (0.3-1.2); CALCIUM 8.3 mg/dL (8.5-10.1); CREATININE SERUM 2.39 mg/dL (0.55-1.02); GFR 20.23; MAGNESIUM 2.1 mg/dL (1.8-2.4); PHOSPHOROUS 5.1 mg/dL (2.5-4.9); POTASSIUM 4.61 mEq/L (3.5-5.1); TOTAL PROTEIN 5.3 gm/dL (6.4-8.2)
[2024-02-25] MEDS ORDERED: hydrALAZINE HCL 50 MG,hydrALAZINE HCL 25 MG PO SCH (09:00)
[2024-02-25] MEDS ORDERED: AMLODIPINE BESYLATE 10 MG TABLET PO STA (10:05)
[2024-02-25 11:22] LABS: ABG PH 7.375 (7.35-7.45); ABG PO2 152.6 mmHg (80-100); ABG pCO2 40.7 mmHg (35-45); BASE EXCESS -1.8 mmol/l; BICARBONATE 23.3 mmol/l (23-25); SaO2 99.2 %; Tco2 24.5 mmol/l; allen test SATISFACTORY; o2 50 %; puncture site RADIAL LEFT
[2024-02-25] MEDS ORDERED: HEPARIN SODIUM,PORCINE 5,000 UNITS/ML VIAL SUBCUTANEO SCH (21:00)
[2024-02-25] MEDS ORDERED: CLEVIDIPINE BUTYRATE 100 ML IV SCH (22:00)
[2024-02-26] VITALS (24 sets, daily range): BP systolic 113–191; BP diastolic 47–95; O2SAT 98–100
[2024-02-26 08:23] LABS: ALBUMIN 2.2 gm/dL (3.4-5.0); BILIRUBIN TOTAL 0.5 mg/dL (0.3-1.2); CALCIUM 8.2 mg/dL (8.5-10.1); CREATININE SERUM 2.6 mg/dL (0.55-1.02); GFR 18.36; PHOSPHOROUS 5.5 mg/dL (2.5-4.9); POTASSIUM 4.85 mEq/L (3.5-5.1); TOTAL PROTEIN 5.2 gm/dL (6.4-8.2)
[2024-02-26 08:27] LABS: CHOL HDL RATIO 1.8 (0-5.0)
[2024-02-26 08:41] LABS: HEMATOCRIT 28.5 % (36.0-45.00); MEAN CELL VOLUME 85.7 fL (80.00-100.00); MEAN CORPUSCULAR HEMOGLOBIN 30.1 pg (27.00-32.0); MEAN CORPUSCULAR HGB CONC 35.1 g/dl (32.0-36.0); PLATELET COUNT 161 K/uL (150-450); RED BLOOD COUNT 3.33 M/uL (4.00-6.00); RED CELL DISTRIBUTION WIDTH 14.9 % (11.5-14.5)
[2024-02-26] MEDS ORDERED: AMLODIPINE BESYLATE 10 MG TABLET PO SCH (09:00)
[2024-02-26] MEDS ORDERED: PANTOPRAZOLE SODIUM 40 MG/VIAL VIAL IV SCH (09:00)
[2024-02-26 12:51] LABS: ABG PH 7.391 (7.35-7.45); ABG PO2 104.5 mmHg (80-100); ABG pCO2 36.4 mmHg (35-45); BASE EXCESS -2.8 mmol/l; BICARBONATE 21.6 mmol/l (23-25); SaO2 97.9 %; Tco2 22.7 mmol/l; allen test SATISFACTORY; o2 50 %; puncture site RADIAL RIGHT
[2024-02-26] MEDS ORDERED: AA 4.25%/CAL/LYTES/DEXT 5% 1,000 ML PERIFERAL SCH (17:00)
[2024-02-27] VITALS (19 sets, daily range): BP systolic 116–162; BP diastolic 42–84; O2SAT 72–100
[2024-02-27 07:51] LABS: HEMATOCRIT 28.2 % (36.0-45.00); HEMOGLOBIN 9.6 g/dL (12.0-15.00); MEAN CELL VOLUME 86.1 fL (80.00-100.00); MEAN CORPUSCULAR HEMOGLOBIN 29.2 pg (27.00-32.0); MEAN CORPUSCULAR HGB CONC 33.9 g/dl (32.0-36.0); PLATELET COUNT 151 K/uL (150-450); RED BLOOD COUNT 3.27 M/uL (4.00-6.00); RED CELL DISTRIBUTION WIDTH 14.6 % (11.5-14.5)
[2024-02-27 08:25] LABS: ALBUMIN 2.1 gm/dL (3.4-5.0); BILIRUBIN TOTAL 0.45 mg/dL (0.3-1.2); CALCIUM 8.3 mg/dL (8.5-10.1); CREATININE SERUM 1.94 mg/dL (0.55-1.02); GFR 25.74; PHOSPHOROUS 4.4 mg/dL (2.5-4.9); POTASSIUM 4.28 mEq/L (3.5-5.1); TOTAL PROTEIN 5.1 gm/dL (6.4-8.2)
[2024-02-27] MEDS ORDERED: LINEZOLID 600 MG TABLET PO SCH (09:00)
[2024-02-27 11:01] LABS: ABG PH 7.376 (7.35-7.45); ABG PO2 129.2 mmHg (80-100); ABG pCO2 39.8 mmHg (35-45); BASE EXCESS -2.1 mmol/l; BICARBONATE 22.8 mmol/l (23-25); SaO2 98.8 %
[2024-02-27 11:02] LABS: o2 50 %
[2024-02-27 11:03] LABS: allen test SATISFACTORY; puncture site RADIAL RIGHT
[2024-02-27] MEDS ORDERED: DOXAZOSIN MESYLATE 4 MG TABLET PO SCH (17:00)
[2024-02-28] VITALS (10 sets, daily range): BP systolic 96–130; BP diastolic 44–55; O2SAT 90–100
[2024-02-28 06:56] LABS: HEMATOCRIT 25.5 % (36.0-45.00); MEAN CELL VOLUME 87.9 fL (80.00-100.00); MEAN CORPUSCULAR HGB CONC 33.4 g/dl (32.0-36.0); RED CELL DISTRIBUTION WIDTH 14.5 % (11.5-14.5)
[2024-02-28 07:01] LABS: HEMOGLOBIN 8.5 g/dL (12.0-15.00); MEAN CORPUSCULAR HEMOGLOBIN 29.3 pg (27.00-32.0); PLATELET COUNT 120 K/uL (150-450)
[2024-02-28 07:36] LABS: INR 0.99; PARTIAL THROMBOPLASTIN TIME 20.8 SECONDS (22.0-34.0); PROTHROMBIN TIME 10.8 SECONDS (9.0-11.5)
[2024-02-28 07:45] LABS: ALBUMIN 1.9 gm/dL (3.4-5.0); BILIRUBIN TOTAL 0.28 mg/dL (0.3-1.2); BILIRUBIN,CONJUGATED 0.11 mg/dL (0.0-0.2); BILIRUBIN,UNCONJUGATED 0.17 mg/dL (0.0-0.6); CALCIUM 8.2 mg/dL (8.5-10.1); CHOL HDL RATIO 1.7 (0-5.0); CREATININE SERUM 2.14 mg/dL (0.55-1.02); GFR 22.98; GLOBULINA 2.6 G/DL (2.4-3.5); MAGNESIUM 2.2 mg/dL (1.8-2.4); PHOSPHOROUS 5.5 mg/dL (2.5-4.9); POTASSIUM 4.41 mEq/L (3.5-5.1); TOTAL PROTEIN 4.5 gm/dL (6.4-8.2)
[2024-02-28 08:22] LABS: UREA CLEARANCE 0.7 ML/MIN
[2024-02-28] MEDS ORDERED: MEROPENEM 500 MG/VIAL VIAL IV SCH (09:00)
[2024-02-28] MEDS ORDERED: EPOETIN ALFA-EPBX 10,000 UNIT/ML VIAL (Retacrit) SUBCUTANEO SCH (09:00)
[2024-02-28] MEDS ORDERED: NOREPINEPHRINE BITARTRATE 8 MG in DEXTROSE 5 % IN WATER 250 ML IV SCH (12:15)
[2024-02-29] VITALS (13 sets, daily range): BP systolic 97–175; BP diastolic 43–78; O2SAT 93–100
[2024-02-29] MEDS ORDERED: MIDAZOLAM HCL 100 MG in 0.9 % SODIUM CHLORIDE 100 ML IV SCH (12:45)
[2024-02-29 13:51] LABS: HEMATOCRIT 26.9 % (36.0-45.00); HEMOGLOBIN 9.5 g/dL (12.0-15.00); MEAN CELL VOLUME 84.9 fL (80.00-100.00); MEAN CORPUSCULAR HEMOGLOBIN 29.9 pg (27.00-32.0); MEAN CORPUSCULAR HGB CONC 35.2 g/dl (32.0-36.0); RED BLOOD COUNT 3.17 M/uL (4.00-6.00); RED CELL DISTRIBUTION WIDTH 14.7 % (11.5-14.5)
[2024-02-29 13:53] LABS: PLATELET COUNT 92 K/uL (150-450)
[2024-02-29 14:24] LABS: ALBUMIN 1.9 gm/dL (3.4-5.0); BILIRUBIN TOTAL 0.44 mg/dL (0.3-1.2); CALCIUM 8.4 mg/dL (8.5-10.1); CREATININE SERUM 1.82 mg/dL (0.55-1.02); GFR 27.71; GLOBULINA 3.2 G/DL (2.4-3.5); MAGNESIUM 2.2 mg/dL (1.8-2.4); PHOSPHOROUS 4.6 mg/dL (2.5-4.9); POTASSIUM 4.04 mEq/L (3.5-5.1); TOTAL PROTEIN 5.1 gm/dL (6.4-8.2)
[2024-02-29] MEDS ORDERED: MIDAZOLAM HCL 2 MG/2 ML VIAL IV PUSH ONE (14:30)
[2024-02-29 21:02] LABS: HEMATOCRIT 27.8 % (36.0-45.00); HEMOGLOBIN 9.9 g/dL (12.0-15.00); MEAN CELL VOLUME 84.3 fL (80.00-100.00); MEAN CORPUSCULAR HEMOGLOBIN 29.9 pg (27.00-32.0); MEAN CORPUSCULAR HGB CONC 35.4 g/dl (32.0-36.0); RED CELL DISTRIBUTION WIDTH 14.4 % (11.5-14.5)
[2024-02-29 21:03] LABS: PLATELET COUNT 68 K/uL (150-450)
[2024-03-01] VITALS (10 sets, daily range): BP systolic 116–161; BP diastolic 51–80; O2SAT 96–100
[2024-03-01 07:02] LABS: HEMATOCRIT 27.4 % (36.0-45.00); HEMOGLOBIN 9.7 g/dL (12.0-15.00); MEAN CELL VOLUME 84.1 fL (80.00-100.00); MEAN CORPUSCULAR HEMOGLOBIN 29.7 pg (27.00-32.0); MEAN CORPUSCULAR HGB CONC 35.3 g/dl (32.0-36.0); RED BLOOD COUNT 3.26 M/uL (4.00-6.00); RED CELL DISTRIBUTION WIDTH 14.5 % (11.5-14.5)
[2024-03-01 07:15] LABS: PLATELET COUNT 76 K/uL (150-450)
[2024-03-01 07:18] LABS: ALBUMIN 1.7 gm/dL (3.4-5.0); BILIRUBIN TOTAL 0.53 mg/dL (0.3-1.2); CALCIUM 8.2 mg/dL (8.5-10.1); CREATININE SERUM 1.79 mg/dL (0.55-1.02); GFR 28.24; GLOBULINA 2.4 G/DL (2.4-3.5); PHOSPHOROUS 3.9 mg/dL (2.5-4.9); POTASSIUM 3.91 mEq/L (3.5-5.1); TOTAL PROTEIN 4.1 gm/dL (6.4-8.2)
[2024-03-01] MEDS ORDERED: ANIDULAFUNGIN 100 MG VIAL IV NR (09:00)
[2024-03-01] MEDS ORDERED: ALBUMIN HUMAN 100 ML VIAL IV ONE (09:00)
[2024-03-01 10:55] LABS: ABG PH 7.564 (7.35-7.45); ABG PO2 183.5 mmHg (80-100); ABG pCO2 22.1 mmHg (35-45); BASE EXCESS -0.4 mmol/l; BICARBONATE 19.5 mmol/l (23-25); SaO2 99.8 %
[2024-03-01 10:56] LABS: Tco2 20.1 mmol/l
[2024-03-01 10:57] LABS: allen test SATISFACTORY; o2 60 %; puncture site RADIAL RIGHT
[2024-03-01 21:11] LABS: HEMATOCRIT 29.8 % (36.0-45.00); HEMOGLOBIN 10.3 g/dL (12.0-15.00); MEAN CELL VOLUME 82.7 fL (80.00-100.00); MEAN CORPUSCULAR HEMOGLOBIN 28.4 pg (27.00-32.0); MEAN CORPUSCULAR HGB CONC 34.4 g/dl (32.0-36.0); RED BLOOD COUNT 3.61 M/uL (4.00-6.00)
[2024-03-01 21:24] LABS: PLATELET COUNT 63 K/uL (150-450)
[2024-03-02] VITALS (13 sets, daily range): BP systolic 106–178; BP diastolic 55–85; O2SAT 100
[2024-03-02 06:19] LABS: HEMOGLOBIN 10.7 g/dL (12.0-15.00); MEAN CELL VOLUME 81.8 fL (80.00-100.00); MEAN CORPUSCULAR HGB CONC 36.7 g/dl (32.0-36.0); RED BLOOD COUNT 3.55 M/uL (4.00-6.00); RED CELL DISTRIBUTION WIDTH 15.1 % (11.5-14.5)
[2024-03-02 06:42] LABS: ALBUMIN 2.1 gm/dL (3.4-5.0); BILIRUBIN TOTAL 0.67 mg/dL (0.3-1.2); CALCIUM 8.3 mg/dL (8.5-10.1); CREATININE SERUM 1.38 mg/dL (0.55-1.02); GFR 38.13; GLOBULINA 2.3 G/DL (2.4-3.5); MAGNESIUM 1.9 mg/dL (1.8-2.4); PHOSPHOROUS 2.4 mg/dL (2.5-4.9); POTASSIUM 3.39 mEq/L (3.5-5.1); TOTAL PROTEIN 4.4 gm/dL (6.4-8.2)
[2024-03-02 06:59] LABS: PLATELET COUNT 50 K/uL (150-450)
[2024-03-02] MEDS ORDERED: ANIDULAFUNGIN 100 MG VIAL IV SCH (09:00)
[2024-03-02 11:14] LABS: ABG PH 7.414 (7.35-7.45); ABG PO2 244.7 mmHg (80-100); ABG pCO2 34.3 mmHg (35-45); BASE EXCESS -2.3 mmol/l; BICARBONATE 21.4 mmol/l (23-25); SaO2 99.8 %; Tco2 22.5 mmol/l; allen test SATISFACTORY; o2 50 %; puncture site RADIAL RIGHT
[2024-03-02] MEDS ORDERED: POTASSIUM CHLORIDE 20MEQ/100ML H2O PB IV NR (13:30)
[2024-03-02] MEDS ORDERED: AMLODIPINE BESYLATE 5 MG TABLET PO SCH (16:11)
[2024-03-02] MEDS ORDERED: CEFTAZIDIME/AVIBACTAM 0.94GM/100ML NSS PB IV SCH (17:00)
[2024-03-03] VITALS (13 sets, daily range): BP systolic 116–169; BP diastolic 54–80; O2SAT 100
[2024-03-03 06:19] LABS: HEMATOCRIT 28.4 % (36.0-45.00); HEMOGLOBIN 9.9 g/dL (12.0-15.00); MEAN CELL VOLUME 82.8 fL (80.00-100.00); MEAN CORPUSCULAR HEMOGLOBIN 28.8 pg (27.00-32.0); MEAN CORPUSCULAR HGB CONC 34.8 g/dl (32.0-36.0); RED BLOOD COUNT 3.43 M/uL (4.00-6.00)
[2024-03-03 06:42] LABS: ALBUMIN 1.8 gm/dL (3.4-5.0); BILIRUBIN TOTAL 0.44 mg/dL (0.3-1.2); CALCIUM 8.1 mg/dL (8.5-10.1); CREATININE SERUM 1.66 mg/dL (0.55-1.02); GFR 30.81; GLOBULINA 2.4 G/DL (2.4-3.5); MAGNESIUM 1.8 mg/dL (1.8-2.4); PHOSPHOROUS 2.2 mg/dL (2.5-4.9); POTASSIUM 3.97 mEq/L (3.5-5.1); TOTAL PROTEIN 4.2 gm/dL (6.4-8.2)
[2024-03-03 06:52] LABS: PLATELET COUNT 68 K/uL (150-450)
[2024-03-03] MEDS ORDERED: ALBUMIN HUMAN 100 ML VIAL IV NR (10:15)
[2024-03-03 12:00] LABS: ABG PH 7.466 (7.35-7.45)
[2024-03-03 12:01] LABS: ABG PO2 182.2 mmHg (80-100); ABG pCO2 30.8 mmHg (35-45); BASE EXCESS -0.9 mmol/l; BICARBONATE 21.8 mmol/l (23-25); SaO2 99.7 %; Tco2 22.7 mmol/l; allen test SATISFACTORY; o2 50 %; puncture site RADIAL LEFT
[2024-03-04] VITALS (12 sets, daily range): BP systolic 120–176; BP diastolic 56–89; O2SAT 100
[2024-03-04 08:25] LABS: ALBUMIN 2.1 gm/dL (3.4-5.0); BILIRUBIN TOTAL 0.68 mg/dL (0.3-1.2); CALCIUM 7.8 mg/dL (8.5-10.1); CREATININE SERUM 1.3 mg/dL (0.55-1.02); GFR 40.86; GLOBULINA 2.3 G/DL (2.4-3.5); MAGNESIUM 1.8 mg/dL (1.8-2.4); PHOSPHOROUS 2.1 mg/dL (2.5-4.9); POTASSIUM 3.64 mEq/L (3.5-5.1); TOTAL PROTEIN 4.4 gm/dL (6.4-8.2)
[2024-03-04 08:40] LABS: HEMATOCRIT 28.5 % (36.0-45.00); HEMOGLOBIN 9.6 g/dL (12.0-15.00); MEAN CORPUSCULAR HEMOGLOBIN 28.6 pg (27.00-32.0); MEAN CORPUSCULAR HGB CONC 33.7 g/dl (32.0-36.0); RED BLOOD COUNT 3.35 M/uL (4.00-6.00)
[2024-03-04 08:42] LABS: PLATELET COUNT 66 K/uL (150-450)
[2024-03-04 11:20] LABS: ABG PH 7.454 (7.35-7.45); ABG PO2 178.5 mmHg (80-100); ABG pCO2 31.8 mmHg (35-45); BASE EXCESS -1.1 mmol/l; BICARBONATE 21.8 mmol/l (23-25); SaO2 99.6 %; Tco2 22.8 mmol/l; o2 50 %
[2024-03-04 11:21] LABS: allen test SATISFACTORY; puncture site RADIAL RIGHT
[2024-03-05] VITALS (13 sets, daily range): BP systolic 135–166; BP diastolic 54–73; O2SAT 100
[2024-03-05 07:30] LABS: HEMATOCRIT 26.9 % (36.0-45.00); HEMOGLOBIN 9.3 g/dL (12.0-15.00); MEAN CELL VOLUME 84.5 fL (80.00-100.00); MEAN CORPUSCULAR HEMOGLOBIN 29.2 pg (27.00-32.0); MEAN CORPUSCULAR HGB CONC 34.5 g/dl (32.0-36.0); RED BLOOD COUNT 3.18 M/uL (4.00-6.00); RED CELL DISTRIBUTION WIDTH 14.7 % (11.5-14.5)
[2024-03-05 07:43] LABS: PLATELET COUNT 70 K/uL (150-450)
[2024-03-05 07:56] LABS: ALBUMIN 1.7 gm/dL (3.4-5.0); BILIRUBIN TOTAL 0.62 mg/dL (0.3-1.2); CALCIUM 7.8 mg/dL (8.5-10.1); CREATININE SERUM 1.4 mg/dL (0.55-1.02); GFR 37.51; GLOBULINA 2.4 G/DL (2.4-3.5); MAGNESIUM 1.9 mg/dL (1.8-2.4); PHOSPHOROUS 2.1 mg/dL (2.5-4.9); POTASSIUM 3.64 mEq/L (3.5-5.1); TOTAL PROTEIN 4.1 gm/dL (6.4-8.2)
[2024-03-05 10:18] LABS: ABG PH 7.433 (7.35-7.45); ABG pCO2 33.2 mmHg (35-45)
[2024-03-05 10:19] LABS: ABG PO2 475.3 mmHg (80-100); BASE EXCESS -1.7 mmol/l; BICARBONATE 21.7 mmol/l (23-25); Tco2 22.7 mmol/l; allen test SATISFACTORY; o2 50 %; puncture site RADIAL RIGHT
[2024-03-05 15:25] LABS: INR 1.09; PARTIAL THROMBOPLASTIN TIME 29.6 SECONDS (22.0-34.0); PROTHROMBIN TIME 11.8 SECONDS (9.0-11.5)
[2024-03-06] VITALS (13 sets, daily range): BP systolic 147–179; BP diastolic 56–78; O2SAT 100
[2024-03-06] MEDS ORDERED: AMLODIPINE BESYLATE 5 MG TABLET PO SCH (09:00)
[2024-03-06] MEDS ORDERED: levoFLOXacin IN DEXTROSE 5 % 5 MG/ML PIGGYBAG IV NR (10:00)
[2024-03-06 11:08] LABS: ABG PH 7.398 (7.35-7.45)
[2024-03-06 11:09] LABS: ABG PO2 194.5 mmHg (80-100); ABG pCO2 38.1 mmHg (35-45); BASE EXCESS -1.5 mmol/l; BICARBONATE 22.9 mmol/l (23-25); SaO2 99.7 %; Tco2 24.1 mmol/l; allen test SATISFACTORY; o2 50 %; puncture site RADIAL RIGHT
[2024-03-06] MEDS ORDERED: levoFLOXacin IN DEXTROSE 5 % 500MG/100ML PIGGYBAG IV SCH (21:00)
[2024-03-06] MEDS ORDERED: FUROsemide 20 MG/2 ML VIAL IV SCH (21:00)
[2024-03-07] VITALS (15 sets, daily range): BP systolic 128–173; BP diastolic 58–77; O2SAT 98–100
[2024-03-07 07:23] LABS: ALBUMIN 1.7 gm/dL (3.4-5.0); BILIRUBIN TOTAL 0.83 mg/dL (0.3-1.2); CALCIUM 8.3 mg/dL (8.5-10.1); CREATININE SERUM 1.38 mg/dL (0.55-1.02); GFR 38.13; GLOBULINA 3.1 G/DL (2.4-3.5); MAGNESIUM 1.9 mg/dL (1.8-2.4); PHOSPHOROUS 2.4 mg/dL (2.5-4.9); POTASSIUM 3.66 mEq/L (3.5-5.1); TOTAL PROTEIN 4.8 gm/dL (6.4-8.2)
[2024-03-07 07:41] LABS: HEMATOCRIT 30.4 % (36.0-45.00); HEMOGLOBIN 10.2 g/dL (12.0-15.00); MEAN CELL VOLUME 85.1 fL (80.00-100.00); MEAN CORPUSCULAR HEMOGLOBIN 28.5 pg (27.00-32.0); MEAN CORPUSCULAR HGB CONC 33.5 g/dl (32.0-36.0); RED BLOOD COUNT 3.57 M/uL (4.00-6.00); RED CELL DISTRIBUTION WIDTH 14.6 % (11.5-14.5)
[2024-03-07 07:46] LABS: PLATELET COUNT 87 K/uL (150-450)
[2024-03-07] MEDS ORDERED: AMLODIPINE BESYLATE 10 MG TABLET PO SCH (09:00)
[2024-03-07] MEDS ORDERED: ZINC OXIDE 30 GM,NYSTATIN 30 GM,SILVER SULFADIAZINE 50 GM TOP SCH (17:00)
[2024-03-08 04:10] VITALS: BP 151/58; O2SAT 100
[2024-03-08 07:02] VITALS: BP 144/55; O2SAT 100
[2024-03-08 10:39] LABS: ABG PH 7.437 (7.35-7.45); ABG PO2 164.1 mmHg (80-100); ABG pCO2 34.9 mmHg (35-45); BASE EXCESS -0.6 mmol/l; SaO2 99.5 %; Tco2 24.1 mmol/l; allen test SATISFACTORY; o2 40 %; puncture site RADIAL LEFT
[2024-03-08 11:59] VITALS: BP 167/67; O2SAT 99
[2024-03-08 12:00] LABS: ABG PH 7.418 (7.35-7.45); ABG PO2 92.9 mmHg (80-100); BASE EXCESS -0.2 mmol/l; SaO2 97.3 %; Tco2 25.1 mmol/l; allen test SATISFACTORY; o2 35 %; puncture site RADIAL LEFT
[2024-03-08 13:53] LABS: ABG PH 7.404 (7.35-7.45); ABG PO2 83.1 mmHg (80-100); ABG pCO2 40.4 mmHg (35-45); BASE EXCESS 0 mmol/l; SaO2 96.2 %
[2024-03-08 13:54] LABS: BICARBONATE 24.7 mmol/l (23-25); Tco2 25.9 mmol/l; allen test SATISFACTORY; o2 50 %; puncture site RADIAL LEFT
[2024-03-08 16:00] VITALS: BP 151/65; O2SAT 92
[2024-03-08 20:00] VITALS: BP 170/65; O2SAT 96
[2024-03-08 23:03] VITALS: BP 169/73; O2SAT 96
[2024-03-09 04:00] VITALS: BP 172/81; O2SAT 100
[2024-03-09 06:32] LABS: HEMATOCRIT 30.5 % (36.0-45.00); HEMOGLOBIN 10.5 g/dL (12.0-15.00); MEAN CELL VOLUME 84.2 fL (80.00-100.00); MEAN CORPUSCULAR HGB CONC 34.4 g/dl (32.0-36.0); RED BLOOD COUNT 3.63 M/uL (4.00-6.00)
[2024-03-09 06:40] LABS: PLATELET COUNT 121 K/uL (150-450)
[2024-03-09 07:07] LABS: BILIRUBIN TOTAL 0.85 mg/dL (0.3-1.2); CALCIUM 8.6 mg/dL (8.5-10.1); CREATININE SERUM 1.45 mg/dL (0.55-1.02); GFR 36.02; GLOBULINA 3.1 G/DL (2.4-3.5); POTASSIUM 3.59 mEq/L (3.5-5.1); TOTAL PROTEIN 5.1 gm/dL (6.4-8.2)
[2024-03-09 07:14] LABS: MAGNESIUM 1.9 mg/dL (1.8-2.4); PHOSPHOROUS 2.4 mg/dL (2.5-4.9)
[2024-03-09 07:35] VITALS: BP 168/67; O2SAT 100
[2024-03-09] MEDS ORDERED: POTASSIUM PHOS,M-BASIC-D-BASIC 9 MM in 0.9 % SODIUM CHLORIDE 250 ML IV NR (10:30)
[2024-03-09 12:25] VITALS: BP 153/77
[2024-03-09 15:00] VITALS: BP 152/66; O2SAT 100
[2024-03-09 20:00] VITALS: BP 165/53; O2SAT 99
[2024-03-09 23:15] VITALS: BP 160/63; O2SAT 96
[2024-03-10 04:00] VITALS: BP 171/66; O2SAT 97
[2024-03-10 07:00] VITALS: BP 152/81; O2SAT 99
[2024-03-10 12:00] VITALS: BP 158/65; O2SAT 100
[2024-03-10 15:16] VITALS: BP 160/63; O2SAT 100
[2024-03-10] MEDS ORDERED: CEFTAZIDIME/AVIBACTAM 0.94GM/100ML NSS PB IV SCH (17:00)
[2024-03-10 20:16] VITALS: BP 162/70; O2SAT 100
[2024-03-10] MEDS ORDERED: HEPARIN SODIUM,PORCINE 5,000 UNITS/ML VIAL SUBCUTANEO SCH (21:00)
[2024-03-10] MEDS ORDERED: hydrALAZINE HCL 25 MG TABLET PO SCH (23:19)
[2024-03-10 23:46] VITALS: BP 163/89; O2SAT 100
[2024-03-11] VITALS (8 sets, daily range): BP systolic 166–182; BP diastolic 74–79; O2SAT 90–100
[2024-03-11 07:58] LABS: HEMATOCRIT 26.8 % (36.0-45.00); HEMOGLOBIN 9.3 g/dL (12.0-15.00); MEAN CELL VOLUME 83.7 fL (80.00-100.00); MEAN CORPUSCULAR HEMOGLOBIN 29.1 pg (27.00-32.0); MEAN CORPUSCULAR HGB CONC 34.7 g/dl (32.0-36.0); PLATELET COUNT 166 K/uL (150-450); RED CELL DISTRIBUTION WIDTH 15.1 % (11.5-14.5)
[2024-03-11 08:20] LABS: ALBUMIN 2.2 gm/dL (3.4-5.0); BILIRUBIN TOTAL 0.77 mg/dL (0.3-1.2); CALCIUM 8.3 mg/dL (8.5-10.1); CREATININE SERUM 1.21 mg/dL (0.55-1.02); GFR 44.38; GLOBULINA 3.1 G/DL (2.4-3.5); MAGNESIUM 1.8 mg/dL (1.8-2.4); PHOSPHOROUS 2.2 mg/dL (2.5-4.9); POTASSIUM 3.15 mEq/L (3.5-5.1); TOTAL PROTEIN 5.3 gm/dL (6.4-8.2)
[2024-03-11] MEDS ORDERED: POTASSIUM PHOS,M-BASIC-D-BASIC 15 MM in 0.9 % SODIUM CHLORIDE 250 ML IV NR (11:45)
[2024-03-11] MEDS ORDERED: METOPROLOL SUCCINATE 25 MG TAB.SR.24H PO NR (12:30)
[2024-03-11] MEDS ORDERED: hydrALAZINE HCL 25 MG TABLET PO SCH (13:00)
[2024-03-11] MEDS ORDERED: POTASSIUM CHLORIDE IN WATER 100 ML IV SCH (13:00)
[2024-03-11] MEDS ORDERED: CLONIDINE HCL 0.1 MG TABLET PO SCH (17:00)
[2024-03-12 00:53] VITALS: BP 218/92; O2SAT 97
[2024-03-12 08:00] VITALS: BP 180/90; O2SAT 95
[2024-03-12 08:04] LABS: HEMATOCRIT 27.5 % (36.0-45.00); HEMOGLOBIN 9.5 g/dL (12.0-15.00); MEAN CELL VOLUME 83.1 fL (80.00-100.00); MEAN CORPUSCULAR HEMOGLOBIN 28.6 pg (27.00-32.0); MEAN CORPUSCULAR HGB CONC 34.4 g/dl (32.0-36.0); PLATELET COUNT 214 K/uL (150-450); RED BLOOD COUNT 3.31 M/uL (4.00-6.00); RED CELL DISTRIBUTION WIDTH 15.4 % (11.5-14.5)
[2024-03-12 08:19] LABS: ALBUMIN 2.3 gm/dL (3.4-5.0); BILIRUBIN TOTAL 0.74 mg/dL (0.3-1.2); CALCIUM 8.4 mg/dL (8.5-10.1); CREATININE SERUM 1.55 mg/dL (0.55-1.02); GFR 33.35; GLOBULINA 3.3 G/DL (2.4-3.5); POTASSIUM 4.03 mEq/L (3.5-5.1); TOTAL PROTEIN 5.6 gm/dL (6.4-8.2)
[2024-03-12] MEDS ORDERED: hydrALAZINE HCL 50 MG TABLET PO SCH ×2 (09:00→17:00)
[2024-03-12] MEDS ORDERED: METOPROLOL SUCCINATE 25 MG TAB.SR.24H PO SCH (09:00)
[2024-03-12] MEDS ORDERED: ENALAPRILAT DIHYDRATE 1.25 MG/ML VIAL IV PRN (09:15)
[2024-03-12 16:00] VITALS: BP 162/88; O2SAT 96
[2024-03-12 17:00] VITALS: O2SAT 97
[2024-03-12] MEDS ORDERED: CARVEDILOL 6.25 MG TABLET PO SCH (17:00)
[2024-03-12 21:00] VITALS: O2SAT 98
[2024-03-12 22:08] VITALS: BP 169/77; O2SAT 96
[2024-03-13 00:18] VITALS: BP 202/92; O2SAT 97
[2024-03-13 08:00] VITALS: BP 103/60; O2SAT 95
[2024-03-13 08:25] LABS: ALBUMIN 2.2 gm/dL (3.4-5.0); BILIRUBIN TOTAL 0.67 mg/dL (0.3-1.2); CALCIUM 8.2 mg/dL (8.5-10.1); CREATININE SERUM 1.64 mg/dL (0.55-1.02); GFR 31.25; GLOBULINA 3.2 G/DL (2.4-3.5); MAGNESIUM 1.9 mg/dL (1.8-2.4); PHOSPHOROUS 3.5 mg/dL (2.5-4.9); POTASSIUM 3.81 mEq/L (3.5-5.1); TOTAL PROTEIN 5.4 gm/dL (6.4-8.2)
[2024-03-13 08:31] LABS: HEMOGLOBIN 9.8 g/dL (12.0-15.00); MEAN CORPUSCULAR HEMOGLOBIN 28.2 pg (27.00-32.0); MEAN CORPUSCULAR HGB CONC 33.6 g/dl (32.0-36.0); PLATELET COUNT 243 K/uL (150-450); RED BLOOD COUNT 3.46 M/uL (4.00-6.00); RED CELL DISTRIBUTION WIDTH 15.2 % (11.5-14.5)
[2024-03-13 17:00] VITALS: O2SAT 94
[2024-03-13] MEDS ORDERED: CARVEDILOL 3.125 MG TABLET PO SCH (17:00)
[2024-03-13] MEDS ORDERED: HEPARIN SODIUM,PORCINE 5,000 UNITS/ML VIAL IV STA (20:07)
[2024-03-14] VITALS: BP 158/72; O2SAT 95
[2024-03-14 05:28] VITALS: O2SAT 94
[2024-03-14 08:00] VITALS: BP 138/73; O2SAT 96
[2024-03-14 09:55] VITALS: O2SAT 98
[2024-03-14 10:07] LABS: HEMATOCRIT 28.7 % (36.0-45.00); HEMOGLOBIN 9.5 g/dL (12.0-15.00); MEAN CELL VOLUME 84.4 fL (80.00-100.00); MEAN CORPUSCULAR HGB CONC 33.1 g/dl (32.0-36.0); PLATELET COUNT 265 K/uL (150-450); RED CELL DISTRIBUTION WIDTH 15.2 % (11.5-14.5)
[2024-03-14 11:30] LABS: ALBUMIN 2.2 gm/dL (3.4-5.0); BILIRUBIN TOTAL 0.55 mg/dL (0.3-1.2); CREATININE SERUM 1.31 mg/dL (0.55-1.02); GFR 40.5; GLOBULINA 3.3 G/DL (2.4-3.5); POTASSIUM 3.8 mEq/L (3.5-5.1); TOTAL PROTEIN 5.5 gm/dL (6.4-8.2)
[2024-03-14] MEDS ORDERED: METHYLPREDNISOLONE SOD SUCC 40 MG VIAL IV SCH (13:00)
[2024-03-14] MEDS ORDERED: IPRATROPIUM BROMIDE 0.5 MG/2.5 ML AMPUL.NEB IH SCH (13:00)
[2024-03-14] MEDS ORDERED: FUROsemide 40 MG/4 ML VIAL IV SCH (13:00)
[2024-03-14 13:06] VITALS: O2SAT 100
[2024-03-14 13:36] LABS: ABG PH 7.457 (7.35-7.45); ABG PO2 137.6 mmHg (80-100); ABG pCO2 30.8 mmHg (35-45); BASE EXCESS -1.5 mmol/l; BICARBONATE 21.3 mmol/l (23-25); SaO2 99.2 %; Tco2 22.2 mmol/l; o2 21 %
[2024-03-14 13:37] LABS: allen test SATISFACTORY; puncture site RADIAL RIGHT
[2024-03-14 15:57] VITALS: BP 142/78; O2SAT 95
[2024-03-14] MEDS ORDERED: IRON FUM,PS/FOLIC/BCOMP,C NO.9 1 CAP CAPSULE PO SCH (17:00)
[2024-03-14] MEDS ORDERED: ONDANSETRON HCL 2 MG/ML VIAL IV ONE (17:00)
[2024-03-15] VITALS (8 sets, daily range): BP systolic 168–198; BP diastolic 71–84; O2SAT 60–98
[2024-03-15 08:44] LABS: ALBUMIN 2.5 gm/dL (3.4-5.0); BILIRUBIN TOTAL 0.72 mg/dL (0.3-1.2); CALCIUM 8.9 mg/dL (8.5-10.1); CREATININE SERUM 1.67 mg/dL (0.55-1.02); GFR 30.6; GLOBULINA 3.8 G/DL (2.4-3.5); POTASSIUM 3.66 mEq/L (3.5-5.1); TOTAL PROTEIN 6.3 gm/dL (6.4-8.2)
[2024-03-15] MEDS ORDERED: CLONIDINE HCL 0.1 MG TABLET PO STA (11:30)
[2024-03-15] MEDS ORDERED: METOPROLOL SUCCINATE 25 MG TAB.SR.24H PO NR (12:00)
[2024-03-15] MEDS ORDERED: BUMETANIDE 0.5 MG TABLET PO SCH (17:00)
[2024-03-15] MEDS ORDERED: BUMETANIDE 1 MG TABLET PO SCH (17:00)
[2024-03-16] VITALS: BP 175/76; O2SAT 100
[2024-03-16 07:25] LABS: HEMATOCRIT 28.4 % (36.0-45.00); HEMOGLOBIN 9.7 g/dL (12.0-15.00); MEAN CELL VOLUME 82.8 fL (80.00-100.00); MEAN CORPUSCULAR HEMOGLOBIN 28.2 pg (27.00-32.0); MEAN CORPUSCULAR HGB CONC 34.1 g/dl (32.0-36.0); PLATELET COUNT 321 K/uL (150-450); RED BLOOD COUNT 3.43 M/uL (4.00-6.00); RED CELL DISTRIBUTION WIDTH 14.9 % (11.5-14.5)
[2024-03-16 08:13] VITALS: BP 165/78; O2SAT 96
[2024-03-16 08:23] LABS: ALBUMIN 2.5 gm/dL (3.4-5.0); BILIRUBIN TOTAL 0.61 mg/dL (0.3-1.2); CALCIUM 8.5 mg/dL (8.5-10.1); CREATININE SERUM 1.48 mg/dL (0.55-1.02); GFR 35.18; GLOBULINA 3.5 G/DL (2.4-3.5); MAGNESIUM 1.9 mg/dL (1.8-2.4); PHOSPHOROUS 3.1 mg/dL (2.5-4.9); POTASSIUM 3.68 mEq/L (3.5-5.1)
[2024-03-16] MEDS ORDERED: METOPROLOL SUCCINATE 25 MG TAB.SR.24H PO SCH (09:00)
[2024-03-16 15:37] VITALS: O2SAT 70
[2024-03-16 16:18] VITALS: BP 192/87; O2SAT 96
[2024-03-16] MEDS ORDERED: METOPROLOL SUCCINATE 25 MG TAB.SR.24H PO STA (17:39)
[2024-03-16 21:54] VITALS: O2SAT 97
[2024-03-16] MEDS ORDERED: CLONIDINE HCL 0.1 MG TABLET PO STA (23:10)
[2024-03-17] VITALS (12 sets, daily range): BP systolic 170–190; BP diastolic 75–84; O2SAT 90–100
[2024-03-17] MEDS ORDERED: LORazepam 2 MG/ML VIAL IV STA (01:17)
[2024-03-17] MEDS ORDERED: hydrALAZINE HCL 20 MG VIAL IV PRN ×2 (01:30→13:45)
[2024-03-17 07:41] LABS: HEMOGLOBIN 9.3 g/dL (12.0-15.00); MEAN CELL VOLUME 83.6 fL (80.00-100.00); MEAN CORPUSCULAR HEMOGLOBIN 27.9 pg (27.00-32.0); MEAN CORPUSCULAR HGB CONC 33.4 g/dl (32.0-36.0); PLATELET COUNT 349 K/uL (150-450); RED BLOOD COUNT 3.34 M/uL (4.00-6.00); RED CELL DISTRIBUTION WIDTH 15.3 % (11.5-14.5)
[2024-03-17 08:39] LABS: ALBUMIN 2.4 gm/dL (3.4-5.0); BILIRUBIN TOTAL 0.49 mg/dL (0.3-1.2); CALCIUM 8.5 mg/dL (8.5-10.1); CREATININE SERUM 1.89 mg/dL (0.55-1.02); GFR 26.53; GLOBULINA 3.2 G/DL (2.4-3.5); MAGNESIUM 1.8 mg/dL (1.8-2.4); PHOSPHOROUS 2.8 mg/dL (2.5-4.9); POTASSIUM 3.2 mEq/L (3.5-5.1); TOTAL PROTEIN 5.6 gm/dL (6.4-8.2)
[2024-03-17] MEDS ORDERED: NIFEDIPINE 90 MG TAB.SA.OSM PO SCH (09:00)
[2024-03-17] MEDS ORDERED: METOPROLOL SUCCINATE 50 MG TAB.SR.24H PO SCH (09:00)
[2024-03-17] MEDS ORDERED: CLONIDINE HCL 0.1 MG TABLET PO SCH (09:00)
[2024-03-17] MEDS ORDERED: cloNIDine HCL 0.2 MG TABLET PO SCH (09:00)
[2024-03-17] MEDS ORDERED: METHYLPREDNISOLONE SOD SUCC 40 MG VIAL IV SCH (09:00)
[2024-03-17] MEDS ORDERED: SPIRONOLACTONE 50 MG TABLET PO NR (10:45)
[2024-03-17] MEDS ORDERED: POTASSIUM BICARBONATE/CIT AC 25 MEQ TABLET.EFF PO NR (10:45)
[2024-03-17] MEDS ORDERED: POTASSIUM CHLORIDE IN WATER 100 ML IV NR (12:00)
[2024-03-17] MEDS ORDERED: hydrALAZINE HCL 20 MG VIAL IV STA (13:34)
[2024-03-17] MEDS ORDERED: LABETALOL HCL 100 MG/20 ML ML IV STA (21:01)
[2024-03-18] VITALS (8 sets, daily range): BP systolic 160–190; BP diastolic 74–84; O2SAT 96–100
[2024-03-18 07:59] LABS: HEMATOCRIT 26.8 % (36.0-45.00); HEMOGLOBIN 9.2 g/dL (12.0-15.00); MEAN CELL VOLUME 82.6 fL (80.00-100.00); MEAN CORPUSCULAR HEMOGLOBIN 28.3 pg (27.00-32.0); MEAN CORPUSCULAR HGB CONC 34.3 g/dl (32.0-36.0); PLATELET COUNT 332 K/uL (150-450); RED BLOOD COUNT 3.25 M/uL (4.00-6.00); RED CELL DISTRIBUTION WIDTH 16.2 % (11.5-14.5)
[2024-03-18 08:16] LABS: ALBUMIN 2.4 gm/dL (3.4-5.0); BILIRUBIN TOTAL 0.62 mg/dL (0.3-1.2); CALCIUM 8.5 mg/dL (8.5-10.1); CREATININE SERUM 2.19 mg/dL (0.55-1.02); GFR 22.38; GLOBULINA 3.1 G/DL (2.4-3.5); MAGNESIUM 1.7 mg/dL (1.8-2.4); PHOSPHOROUS 2.6 mg/dL (2.5-4.9); POTASSIUM 3.72 mEq/L (3.5-5.1); TOTAL PROTEIN 5.5 gm/dL (6.4-8.2)
[2024-03-18] MEDS ORDERED: INSULIN GLARGINE,HUM.REC.ANLOG 1,000 UNITS/10 ML UNITS SUBCUTANEO SCH (09:00)
[2024-03-18] MEDS ORDERED: NIFEDIPINE 90 MG TAB.SA.OSM PO SCH (09:00)
[2024-03-18] MEDS ORDERED: PANTOPRAZOLE SODIUM 40 MG TABLET.DR PO SCH (09:00)
[2024-03-19] VITALS (7 sets, daily range): BP systolic 167–213; BP diastolic 78–99; O2SAT 95–100
[2024-03-19] MEDS ORDERED: cloNIDine 0.2 MG/24 H PATCH.TDWK TD STA (10:05)
[2024-03-19] MEDS ORDERED: PANTOPRAZOLE SODIUM 40 MG in 0.9 % SODIUM CHLORIDE 8 ML IV PUSH SCH (10:28)
[2024-03-19] MEDS ORDERED: ONDANSETRON HCL 4 MG in 0.9 % SODIUM CHLORIDE 50 ML IV PRN (10:30)
[2024-03-19] MEDS ORDERED: BUMETANIDE 2.5 MG/10 ML VIAL IV SCH (17:00)
[2024-03-19] MEDS ORDERED: DIPHENHYDRAMINE HCL 50 MG/ML VIAL 1ML IV PRN (17:00)
[2024-03-19] MEDS ORDERED: HALOPERIDOL LACTATE 5 MG/ML AMPUL IV PRN (17:00)
[2024-03-20] VITALS (10 sets, daily range): BP systolic 160–205; BP diastolic 68–98; O2SAT 95–98
[2024-03-20] MEDS ORDERED: DIPHENHYDRAMINE HCL 50 MG/ML VIAL 1ML IV ONE (00:30)
[2024-03-20] MEDS ORDERED: HALOPERIDOL LACTATE 5 MG/ML AMPUL IV ONE (00:30)
[2024-03-20 14:07] LABS: ALBUMIN 2.4 gm/dL (3.4-5.0); BILIRUBIN TOTAL 0.82 mg/dL (0.3-1.2); CALCIUM 8.4 mg/dL (8.5-10.1); CREATININE SERUM 2.22 mg/dL (0.55-1.02); GFR 22.03; GLOBULINA 3.1 G/DL (2.4-3.5); MAGNESIUM 1.7 mg/dL (1.8-2.4); PHOSPHOROUS 2.9 mg/dL (2.5-4.9); POTASSIUM 3.17 mEq/L (3.5-5.1); TOTAL PROTEIN 5.5 gm/dL (6.4-8.2)
[2024-03-20 15:29] LABS: HEMATOCRIT 29.6 % (36.0-45.00); HEMOGLOBIN 9.8 g/dL (12.0-15.00); MEAN CELL VOLUME 83.9 fL (80.00-100.00); MEAN CORPUSCULAR HEMOGLOBIN 27.9 pg (27.00-32.0); MEAN CORPUSCULAR HGB CONC 33.2 g/dl (32.0-36.0); PLATELET COUNT 291 K/uL (150-450); RED BLOOD COUNT 3.53 M/uL (4.00-6.00); RED CELL DISTRIBUTION WIDTH 16.2 % (11.5-14.5)
[2024-03-20] MEDS ORDERED: POTASSIUM CHLORIDE IN WATER 40 MEQ/100 ML PIGGYBAG IV ONE (17:00)
[2024-03-20] MEDS ORDERED: MAGNESIUM SULFATE 50% 1,000 MG/2 ML VIAL IV ONE (17:00)
[2024-03-20] MEDS ORDERED: MAGNESIUM SULFATE IN WATER 50 ML IV STA (17:02)
[2024-03-20] MEDS ORDERED: POTASSIUM CHLORIDE IN WATER 100 ML IV NR (17:15)
[2024-03-20] MEDS ORDERED: LABETALOL HCL 100 MG/20 ML ML IV STA (17:16)
[2024-03-20] MEDS ORDERED: METHYLPREDNISOLONE SOD SUCC 40 MG VIAL IV SCH (21:00)
[2024-03-21] VITALS (8 sets, daily range): BP systolic 142–161; BP diastolic 68–77; O2SAT 98–100
[2024-03-21] MEDS ORDERED: METHYLPREDNISOLONE SOD SUCC 40 MG VIAL IV SCH (09:00)
[2024-03-21] MEDS ORDERED: ANIDULAFUNGIN 100 MG VIAL IV SCH (09:00)
[2024-03-21 09:05] LABS: ALBUMIN 2.4 gm/dL (3.4-5.0); BILIRUBIN TOTAL 0.53 mg/dL (0.3-1.2); CALCIUM 8.4 mg/dL (8.5-10.1); CREATININE SERUM 2.36 mg/dL (0.55-1.02); GFR 20.53; GLOBULINA 2.9 G/DL (2.4-3.5); POTASSIUM 3.85 mEq/L (3.5-5.1); TOTAL PROTEIN 5.3 gm/dL (6.4-8.2)
[2024-03-21] MEDS ORDERED: BUMETANIDE 0.5 MG TABLET PO SCH (17:00)
[2024-03-22 02:12] VITALS: O2SAT 100
[2024-03-22 02:21] VITALS: BP 155/72; O2SAT 100
[2024-03-22 05:34] VITALS: O2SAT 97
[2024-03-22 08:00] VITALS: BP 169/69; O2SAT 97
[2024-03-22] MEDS ORDERED: INSULIN GLARGINE,HUM.REC.ANLOG 1,000 UNITS/10 ML UNITS SUBCUTANEO SCH (09:00)
[2024-03-22] MEDS ORDERED: CLONIDINE HCL 0.1 MG TABLET PO SCH (09:00)
[2024-03-22] MEDS ORDERED: BUMETANIDE 0.5 MG TABLET PO SCH (09:00)
[2024-03-22 09:37] LABS: HEMATOCRIT 27.8 % (36.0-45.00); HEMOGLOBIN 9.3 g/dL (12.0-15.00); MEAN CELL VOLUME 84.6 fL (80.00-100.00); MEAN CORPUSCULAR HEMOGLOBIN 28.2 pg (27.00-32.0); MEAN CORPUSCULAR HGB CONC 33.3 g/dl (32.0-36.0); PLATELET COUNT 251 K/uL (150-450); RED BLOOD COUNT 3.29 M/uL (4.00-6.00); RED CELL DISTRIBUTION WIDTH 17.3 % (11.5-14.5)
[2024-03-22 10:56] LABS: ALBUMIN 2.5 gm/dL (3.4-5.0); BILIRUBIN TOTAL 0.61 mg/dL (0.3-1.2); CALCIUM 8.4 mg/dL (8.5-10.1); CREATININE SERUM 2.47 mg/dL (0.55-1.02); GFR 19.48; GLOBULINA 2.9 G/DL (2.4-3.5); POTASSIUM 3.82 mEq/L (3.5-5.1); TOTAL PROTEIN 5.4 gm/dL (6.4-8.2)
[2024-03-22 16:00] VITALS: BP 180/80; O2SAT 99
[2024-03-23 01:07] VITALS: BP 170/78; O2SAT 98
[2024-03-23] MEDS ORDERED: PANTOPRAZOLE SODIUM 40 MG TABLET.DR PO SCH (09:00)
[2024-03-23 14:06] VITALS: O2SAT 97
[2024-03-23] MEDS ORDERED: cloNIDine HCL 0.2 MG TABLET PO SCH (17:00)
[2024-03-23 17:11] VITALS: BP 179/80; O2SAT 98
[2024-03-24] VITALS: BP 139/66; O2SAT 95
[2024-03-24 07:09] LABS: HEMATOCRIT 29.8 % (36.0-45.00); HEMOGLOBIN 9.8 g/dL (12.0-15.00); PLATELET COUNT 213 K/uL (150-450); RED CELL DISTRIBUTION WIDTH 16.7 % (11.5-14.5)
[2024-03-24 07:46] LABS: ALBUMIN 2.3 gm/dL (3.4-5.0); BILIRUBIN TOTAL 0.57 mg/dL (0.3-1.2); CALCIUM 8.5 mg/dL (8.5-10.1); CREATININE SERUM 2.32 mg/dL (0.55-1.02); GFR 20.94; GLOBULINA 3.1 G/DL (2.4-3.5); MAGNESIUM 2.2 mg/dL (1.8-2.4); PHOSPHOROUS 2.8 mg/dL (2.5-4.9); POTASSIUM 3.52 mEq/L (3.5-5.1); TOTAL PROTEIN 5.4 gm/dL (6.4-8.2)
[2024-03-24 08:00] VITALS: BP 190/88; O2SAT 97
[2024-03-24] MEDS ORDERED: METHYLPREDNISOLONE SOD SUCC 40 MG VIAL IV SCH (09:00)
[2024-03-24] MEDS ORDERED: INSULIN GLARGINE,HUM.REC.ANLOG 1,000 UNITS/10 ML UNITS SUBCUTANEO SCH (09:00)
[2024-03-24] MEDS ORDERED: DEXTROSE 5 % IN WATER 1,000 ML IV STA (10:42)
[2024-03-24 13:30] VITALS: BP 170/80; O2SAT 97
[2024-03-24] MEDS ORDERED: DEXTROSE 5 % IN WATER 1,000 ML IV SCH (14:15)
[2024-03-24 17:07] VITALS: BP 169/71; O2SAT 97
[2024-03-24 21:00] VITALS: BP 155/78
[2024-03-25 01:09] VITALS: BP 139/79; O2SAT 98
[2024-03-25 08:00] VITALS: BP 160/71; O2SAT 94
[2024-03-25 08:31] LABS: ALBUMIN 2.3 gm/dL (3.4-5.0); BILIRUBIN TOTAL 0.58 mg/dL (0.3-1.2); CALCIUM 8.5 mg/dL (8.5-10.1); CREATININE SERUM 2.23 mg/dL (0.55-1.02); GFR 21.92; GLOBULINA 3.1 G/DL (2.4-3.5); POTASSIUM 3.46 mEq/L (3.5-5.1); TOTAL PROTEIN 5.4 gm/dL (6.4-8.2)
[2024-03-25] MEDS ORDERED: DEXTROSE 5 % IN WATER 1,000 ML IV SCH (09:45)
[2024-03-25] MEDS ORDERED: POTASSIUM CHLORIDE 10 MEQ CAPSULE PO NR (10:30)
[2024-03-25] MEDS ORDERED: INTEGRA PLUS C1 EACH PO (11:45)
[2024-03-25] MEDS ORDERED: BUMETANIDE0.5 MG PO (11:45)
[2024-03-25] MEDS ORDERED: LIPITOR40 M1 PO (11:45)
[2024-03-25] MEDS ORDERED: TOPROL XL50 M1 PO (11:45)
[2024-03-25] MEDS ORDERED: PROCARDIA XL90 MG PO (11:45)
[2024-03-25] MEDS ORDERED: PROTEINEX-18 LI30 ML PO (11:45)
[2024-03-25] MEDS ORDERED: CLONIDINE HCL0.2 MG PO (11:45)
[2024-03-25] MEDS ORDERED: PANTOPRAZOLE SO40 MG PO (11:45)
[2024-03-25] MEDS ORDERED: HYDRALAZINE HCL50 MG PO (11:45)
[2024-03-25] MEDS ORDERED: LEVALBUTER0.31 MG/3 IH (11:45)
[2024-03-25] MEDS ORDERED: IPRATROPIU0.2 MG/1 M IH (11:45)
[2024-03-25] MEDS ORDERED: DOXAZOSIN MESYLATE 2 MG TABLET PO SCH (21:00)
[2024-03-26] MEDS ORDERED: cloNIDine 0.2 MG/24 H PATCH.TDWK TD SCH (09:00)
== END 2024-03-25 17:24 | DRG 622 ==
LOC: ER 15:45 → SURH 22:14 → ICU 02-12 01:38 → MEDJ 02-23 12:19 → ICU 02-25 19:31 → SURH 03-11 03:02
PROVIDERS: General Practice; Internal Medicine; Internal Medicine Nephrology; Radiology Vascular & Interventional Radiology; ADMIT Internal Medicine; ATTEND Internal Medicine
PROC: B44HZZZ Ultrasonography of Bilateral Lower Extremity Arteries (ICD-10-PCS; 2024-02-09)
PROC: B246ZZZ Ultrasonography of Right and Left Heart (ICD-10-PCS; 2024-02-09)
PROC: B54DZZZ Ultrasonography of Bilateral Lower Extremity Veins (ICD-10-PCS; 2024-02-09)
PROC: 0JBR0ZZ Excision of Left Foot Subcutaneous Tissue and Fascia, Open Approach (ICD-10-PCS; principal; 2024-02-10)
PROC: BL31ZZZ Magnetic Resonance Imaging (MRI) of Lower Extremity Connective Tissue (ICD-10-PCS; 2024-02-10)
PROC: 30233N1 Transfusion of Nonautologous Red Blood Cells into Peripheral Vein, Percutaneous Approach (ICD-10-PCS; 2024-02-10)
PROC: B020ZZZ Computerized Tomography (CT Scan) of Brain (ICD-10-PCS; 2024-02-11)
PROC: B246ZZZ Ultrasonography of Right and Left Heart (ICD-10-PCS; 2024-02-12)
PROC: 0B21XEZ Change Endotracheal Airway in Trachea, External Approach (ICD-10-PCS; 2024-02-12)
PROC: 5A09557 Assistance with Respiratory Ventilation, Greater than 96 Consecutive Hours, Continuous Positive Airway Pressure (ICD-10-PCS; 2024-02-12)
PROC: 0BH17EZ Insertion of Endotracheal Airway into Trachea, Via Natural or Artificial Opening (ICD-10-PCS; 2024-02-12)
PROC: 0W993ZZ Drainage of Right Pleural Cavity, Percutaneous Approach (ICD-10-PCS; 2024-02-15)
PROC: 0JBR0ZZ Excision of Left Foot Subcutaneous Tissue and Fascia, Open Approach (ICD-10-PCS; 2024-02-17)
PROC: 0D9670Z Drainage of Stomach with Drainage Device, Via Natural or Artificial Opening (ICD-10-PCS; 2024-02-18)
PROC: 05HM33Z Insertion of Infusion Device into Right Internal Jugular Vein, Percutaneous Approach (ICD-10-PCS; 2024-02-22)
PROC: B543ZZA Ultrasonography of Right Jugular Veins, Guidance (ICD-10-PCS; 2024-02-22)
PROC: 5A1D70Z Performance of Urinary Filtration, Intermittent, Less than 6 Hours Per Day (ICD-10-PCS; 2024-02-22)
PROC: 0JBR0ZZ Excision of Left Foot Subcutaneous Tissue and Fascia, Open Approach (ICD-10-PCS; 2024-02-23)
PROC: 0JBF0ZZ Excision of Left Upper Arm Subcutaneous Tissue and Fascia, Open Approach (ICD-10-PCS; 2024-02-23)
PROC: 4A12X4Z Monitoring of Cardiac Electrical Activity, External Approach (ICD-10-PCS; 2024-02-23)
PROC: 5A1D70Z Performance of Urinary Filtration, Intermittent, Less than 6 Hours Per Day (ICD-10-PCS; 2024-02-24)
PROC: 5A1D70Z Performance of Urinary Filtration, Intermittent, Less than 6 Hours Per Day (ICD-10-PCS; 2024-02-26)
PROC: 5A1D70Z Performance of Urinary Filtration, Intermittent, Less than 6 Hours Per Day (ICD-10-PCS; 2024-02-28)
PROC: 05PYX3Z Removal of Infusion Device from Upper Vein, External Approach (ICD-10-PCS; 2024-02-29)
PROC: 05HM33Z Insertion of Infusion Device into Right Internal Jugular Vein, Percutaneous Approach (ICD-10-PCS; 2024-02-29)
PROC: B543ZZA Ultrasonography of Right Jugular Veins, Guidance (ICD-10-PCS; 2024-02-29)
PROC: BT43ZZZ Ultrasonography of Bilateral Kidneys (ICD-10-PCS; 2024-03-01)
PROC: 5A1D70Z Performance of Urinary Filtration, Intermittent, Less than 6 Hours Per Day (ICD-10-PCS; 2024-03-01)
PROC: 5A1D70Z Performance of Urinary Filtration, Intermittent, Less than 6 Hours Per Day (ICD-10-PCS; 2024-03-03)
PROC: 0JHD0XZ Insertion of Tunneled Vascular Access Device into Right Upper Arm Subcutaneous Tissue and Fascia, Open Approach (ICD-10-PCS; 2024-03-06)
PROC: 05HM33Z Insertion of Infusion Device into Right Internal Jugular Vein, Percutaneous Approach (ICD-10-PCS; 2024-03-06)
PROC: B543ZZA Ultrasonography of Right Jugular Veins, Guidance (ICD-10-PCS; 2024-03-06)
PROC: 5A1D70Z Performance of Urinary Filtration, Intermittent, Less than 6 Hours Per Day (ICD-10-PCS; 2024-03-07)
PROC: 0JBR0ZZ Excision of Left Foot Subcutaneous Tissue and Fascia, Open Approach (ICD-10-PCS; 2024-03-08)
PROC: BT43ZZZ Ultrasonography of Bilateral Kidneys (ICD-10-PCS; 2024-03-11)
PROC: BB4BZZZ Ultrasonography of Pleura (ICD-10-PCS; 2024-03-12)
PROC: 0JBR0ZZ Excision of Left Foot Subcutaneous Tissue and Fascia, Open Approach (ICD-10-PCS; 2024-03-15)
PROC: 0JBR0ZZ Excision of Left Foot Subcutaneous Tissue and Fascia, Open Approach (ICD-10-PCS; 2024-03-22)
DX: E11.621 Type 2 diabetes mellitus with foot ulcer (principal); A41.59 Other Gram-negative sepsis; T80.211A Bloodstream infection due to central venous catheter, initial encounter; B37.7 Candidal sepsis; R65.21 Severe sepsis with septic shock; J96.01 Acute respiratory failure with hypoxia; J96.02 Acute respiratory failure with hypercapnia; I50.41 Acute combined systolic (congestive) and diastolic (congestive) heart failure; I46.9 Cardiac arrest, cause unspecified; J15.0 Pneumonia due to Klebsiella pneumoniae; J15.1 Pneumonia due to Pseudomonas; J15.8 Pneumonia due to other specified bacteria; L03.116 Cellulitis of left lower limb; L02.612 Cutaneous abscess of left foot; L97.429 Non-pressure chronic ulcer of left heel and midfoot with unspecified severity; K92.1 Melena; E87.4 Mixed disorder of acid-base balance; I13.0 Hypertensive heart and chronic kidney disease with heart failure and stage 1 through stage 4 chronic kidney disease, or unspecified chronic kidney disease; J90 Pleural effusion, not elsewhere classified; K56.0 Paralytic ileus; I13.2 Hypertensive heart and chronic kidney disease with heart failure and with stage 5 chronic kidney disease, or end stage renal disease; N18.6 End stage renal disease; N04.9 Nephrotic syndrome with unspecified morphologic changes; N17.9 Acute kidney failure, unspecified; D64.89 Other specified anemias; E11.51 Type 2 diabetes mellitus with diabetic peripheral angiopathy without gangrene; L98.499 Non-pressure chronic ulcer of skin of other sites with unspecified severity; E11.65 Type 2 diabetes mellitus with hyperglycemia; D69.59 Other secondary thrombocytopenia; I95.9 Hypotension, unspecified; E11.22 Type 2 diabetes mellitus with diabetic chronic kidney disease; R41.82 Altered mental status, unspecified; R13.19 Other dysphagia; Z79.4 Long term (current) use of insulin; Z87.891 Personal history of nicotine dependence; Z88.6 Allergy status to analgesic agent; Z79.84 Long term (current) use of oral hypoglycemic drugs; Z99.2 Dependence on renal dialysis

== ENCOUNTER 2024-04-07 23:00 | Inpatient (IN) | payer OTHER ==
[~2024-04-07] VITALS: Ht 160 cm; Wt 72.6 kg
[~2024-04-07 23:00] MED LIST: BUMETANIDE0.5 MG PO; CLONIDINE HCL0.2 MG PO; COZAAR100 MG PO; GLIMEPIRIDE2 MG; HYDRALAZINE HCL50 MG PO; INTEGRA PLUS C1 EACH PO; IPRATROPIU0.2 MG/1 M IH; ISOSORBIDE MONO60 MG; LANTUS SOL100 UNIT/1; LEVALBUTER0.31 MG/3 IH; LIPITOR40 M1 PO; LIPITOR40 MG PO; NEURONTIN300 MG PO; PANTOPRAZOLE SO40 MG PO; PROCARDIA XL90 MG PO; PROTEINEX-18 LI30 ML PO; TOPROL XL25 M1 PO; TOPROL XL50 M1 PO
--- NOTE | 2024-04-07 23:19 | NUR ---
SE RECIBE PACIENTE EN AMBULANCIA ALERTA Y ORIENTADA X3, REFIERE TENER MAREOS. SE MONITOREAN VS; BP MANUAL 200/100 MMHG. SE REALIZA EKG EL CUAL SE PRESENTA A .
[2024-04-08] VITALS (8 sets, daily range): BP systolic 146–200; BP diastolic 64–87; O2SAT 100
[2024-04-08] MEDS ORDERED: IPRATROPIUM/ALBUTEROL SULFATE 3 ML AMPUL.NEB IH SCH (01:00)
--- NOTE | 2024-04-08 01:48 | NUR ---
PACIENTE EVALUADA POR DR. TSAI QUIEN [place]DE[place] MEDICO, SE EDUCA ACERCA DEL MISMO Y REFIERE ENTENDER. SE CANALIZA Y COLECTAN MUESTRAS DE LABORATORIO MEDIANTE MEDIDAS ASEPTICAS. SE COLOCA CORMIER MEDIANTE MEDIDAS ESTERILES; SE OBSERVA EGRESO URINARIO COLOR AMARILLO CON SEDIMENTACION. SE NOTIFICAN ABGS Y TERAPIAS A PERSONAL DE TURNO.
--- NOTE | 2024-04-08 01:54 | NUR ---
SE RECIBE A PTE EN UNIDAD DE CRITICO. SE UBICA EN CAMA BAJA, SE CONECTA A MONITOR CARDIACO Y OXIMETRIA DE PULSO. SE REALIZA VENOPUNCION BAJO MEDIDAS ASEPTICAS. SE REALIZAN MUESTRAS DE LABS ISABELL ORDEM MEDICA. SE CAMBIA PANAL Y SE OBSERVA PUNTOS DE PRESION, ULCERAS EN GLUTEOS. SE COLOCA CORMIER BAJO MEDIDAS ASEPTICAS Y ESTERILES. SE COLECTA 700ML DE ORINA. SE OBSERVA EXTREMIDADES INFERIORES EDEMATOSAS.
[2024-04-08 02:02] LABS: ABG PH 7.414 (7.35-7.45)
[2024-04-08 02:03] LABS: ABG PO2 88.7 mmHg (80-100); ABG pCO2 34.9 mmHg (35-45); BICARBONATE 21.9 mmol/l (23-25); SaO2 96.9 %; Tco2 22.9 mmol/l; allen test SATISFACTORY; o2 21 %; puncture site RADIAL LEFT
[2024-04-08 02:10] LABS: PH,URINE 5.5 (5.0-8.0); URINE APPEARANCE Turbid; URINE BILIRRUBIN Negative (NEGATIVE); URINE BLOOD Negative; URINE COLOR Yellow; URINE GLUCOSE Negative (NEGATIVE); URINE KETONE Negative (NEGATIVE); URINE LEUKOCYTE Large; URINE NITRATE Negative; URINE UROBILINOGEN 0.2 E.U./dl
[2024-04-08 02:10] LABS: HEMATOCRIT 27.7 % (36.0-45.00); HEMOGLOBIN 9.1 g/dL (12.0-15.00); MEAN CELL VOLUME 82.8 fL (80.00-100.00); MEAN CORPUSCULAR HEMOGLOBIN 27.1 pg (27.00-32.0); MEAN CORPUSCULAR HGB CONC 32.7 g/dl (32.0-36.0); PLATELET COUNT 265 K/uL (150-450); RED BLOOD COUNT 3.35 M/uL (4.00-6.00); RED CELL DISTRIBUTION WIDTH 17.1 % (11.5-14.5)
[2024-04-08 02:11] LABS: URINE RBC 27.3 uL (0.0-20.8)
[2024-04-08 02:16] LABS: ALBUMIN 2.2 gm/dL (3.4-5.0); BILIRUBIN TOTAL 0.25 mg/dL (0.3-1.2); CALCIUM 8.1 mg/dL (8.5-10.1); CREATININE SERUM 1.86 mg/dL (0.55-1.02); GFR 27.02; POTASSIUM 3.93 mEq/L (3.5-5.1); TOTAL PROTEIN 6.2 gm/dL (6.4-8.2)
[2024-04-08] MEDS ORDERED: DEXTROSE 50 % IN WATER 0.5 G/ML DISP.SYRIN IV ONE ×2 (02:44→07:09)
[2024-04-08] MEDS ORDERED: DEXTROSE 50 % IN WATER 0.5 G/ML VIAL IV STA (02:46)
[2024-04-08] MEDS ORDERED: LABETALOL HCL 100 MG/20 ML ML IV PUSH STA (02:47)
[2024-04-08] MEDS ORDERED: LABETALOL HCL 100 MG/20 ML ML ONE ×2 (02:53→05:23)
--- NOTE | 2024-04-08 03:00 | NUR ---
SE RECIBE VALOR PANICO DE GLUCOSA, SE NOTIFICA A MD CUAL EMITE ORDEN DE MEDICAMENTOS. SE ADMNISTRA MEDICAMENTO BAJO MEDIDAS ASEPTICAS.
[2024-04-08 03:09] LABS: ERYTHROCYTE SEDIMENTATION RATE 61 mm/hr
[2024-04-08 03:11] LABS: URINE BACTERIA > 9821.5 uL (0.0-1933); URINE CAST 0.44 uL (0.0-1.40); URINE EPITHELIAL CELLS > 201.7 uL (0.0-38.8); URINE PROTEIN 300 (NEGATIVE); URINE WBC > 5548.3 uL (0.0-23.2)
--- NOTE | 2024-04-08 04:36 | NUR ---
SE RE-EVALUA B/P MANUAL - 220/90MMHG, SE NOTIFICA Fanny JOHNSON, NO SE EMITEN ORDENES AL MOMENTO.
[2024-04-08] MEDS ORDERED: LABETALOL HCL 200 MG/40 ML VIAL IV STA (04:40)
--- NOTE | 2024-04-08 05:00 | NUR ---
SE ADMNISTRA MEDICAMENTO ISABELL ORDEN MEDICA Y BAJO MEDIDAS ASEPTICAS.
[2024-04-08] MEDS ORDERED: DEXTROSE 5 % AND 0.9 % NACL 1,000 ML IV STA (06:57)
[2024-04-08] MEDS ORDERED: cloNIDine HCL 0.3 MG TABLET PO STA (06:58)
[2024-04-08] MEDS ORDERED: CLONIDINE HCL 0.1 MG TABLET PO ONE (07:08)
[2024-04-08] MEDS ORDERED: CLEVIDIPINE BUTYRATE 50 MG/100 ML VIAL IV STA (07:44)
--- NOTE | 2024-04-08 07:46 | NUR ---
7AM SE RECIBE PTE ALERTA Y ORIENTADA X 3 ESFERAS,EN CAMA CON BARANDAS ELEVADAS.CONECTADA A MONITOR CARDIACO Y OXIMETRIA.NO PRESENTA DIFICULTAD RESP AL MOMENTO CON CANULA NASAL @3LTS,PRESENTA TOS NO PRODUCTIVA.AREA DE VENOPUNCION PATENTE Y LUCINA DE EDEMA CON FLUIDOS DE MANTENIMIENTO,SE SE ADMINISTRAN MEDICAMENTOS ISABELL ORDEN MEDICA.PTE CON CORMIER CON ORINA AMARILLA JOSHUA CON SEDIMENTACION.SE GUERLINE BAJO OBSERVACION POR CAMBIOS.
[2024-04-08] MEDS ORDERED: GLUCAGON 1 MG VIAL IV STA (08:38)
[2024-04-08] MEDS ORDERED: hydrALAZINE HCL 50 MG TABLET PO SCH (09:00)
[2024-04-08] MEDS ORDERED: DEXTROSE 50 % IN WATER 0.5 G/ML DISP.SYRIN IV STA (09:12)
[2024-04-08] MEDS ORDERED: CEFTRIAXONE SODIUM 2,000 MG VIAL IV SCH (09:20)
[2024-04-08] MEDS ORDERED: FUROsemide 40 MG/4 ML VIAL IV SCH (09:30)
[2024-04-08] MEDS ORDERED: PANTOPRAZOLE SODIUM 40 MG TABLET.DR PO SCH (09:32)
[2024-04-08 11:10] LABS: PHOSPHOROUS 3.4 mg/dL (2.5-4.9)
[2024-04-08 11:13] LABS: C-REACTIVE PROTEIN 1.76 MG/DL (0.00-0.29)
[2024-04-08] MEDS ORDERED: IRON FUM,PS/FOLIC/BCOMP,C NO.9 1 CAP CAPSULE PO SCH (14:45)
[2024-04-08] MEDS ORDERED: NITROGLYCERIN IN 5 % DEXTROSE 250 ML IV SCH (16:30)
[2024-04-08] MEDS ORDERED: NITROGLYCERIN IN 5 % DEXTROSE 50 MG/250 ML BOTTLE IV ONE (16:33)
[2024-04-08] MEDS ORDERED: FUROsemide 40 MG/4 ML VIAL ONE (16:56)
[2024-04-08] MEDS ORDERED: AMINO ACIDS/PROTEIN HYDROLYS 30 ML BLIST.PACK PO SCH (17:00)
[2024-04-08 23:06] LABS: ALBUMIN 2.2 gm/dL (3.4-5.0); BILIRUBIN TOTAL 0.23 mg/dL (0.3-1.2); CALCIUM 8.1 mg/dL (8.5-10.1); CREATININE SERUM 1.93 mg/dL (0.55-1.02); GFR 25.89; GLOBULINA 3.3 G/DL (2.4-3.5); POTASSIUM 4.75 mEq/L (3.5-5.1); TOTAL PROTEIN 5.5 gm/dL (6.4-8.2)
[2024-04-09] VITALS (12 sets, daily range): BP systolic 144–201; BP diastolic 61–82; O2SAT 99–100
[2024-04-09] MEDS ORDERED: FUROsemide 40 MG/4 ML VIAL ONE (01:14)
[2024-04-09 06:27] LABS: HEMATOCRIT 26.1 % (36.0-45.00); MEAN CELL VOLUME 83.4 fL (80.00-100.00); MEAN CORPUSCULAR HEMOGLOBIN 27.4 pg (27.00-32.0); MEAN CORPUSCULAR HGB CONC 32.8 g/dl (32.0-36.0); PLATELET COUNT 250 K/uL (150-450); RED BLOOD COUNT 3.13 M/uL (4.00-6.00); RED CELL DISTRIBUTION WIDTH 16.7 % (11.5-14.5)
[2024-04-09 06:31] LABS: HEMOGLOBIN 8.6 g/dL (12.0-15.00)
[2024-04-09 06:48] LABS: ALBUMIN 2.2 gm/dL (3.4-5.0); BILIRUBIN TOTAL 0.32 mg/dL (0.3-1.2); CALCIUM 8.3 mg/dL (8.5-10.1); CREATININE SERUM 1.83 mg/dL (0.55-1.02); GFR 27.53; GLOBULINA 3.8 G/DL (2.4-3.5); POTASSIUM 4.12 mEq/L (3.5-5.1)
[2024-04-09] MEDS ORDERED: ENOXAPARIN SODIUM 30 MG/0.3 ML SYRINGE SUBCUTANEO SCH (09:00)
[2024-04-09] MEDS ORDERED: AMLODIPINE BESYLATE 10 MG TABLET PO SCH (11:02)
[2024-04-09] MEDS ORDERED: METOPROLOL SUCCINATE 50 MG TAB.SR.24H PO SCH (11:04)
[2024-04-09] MEDS ORDERED: CLEVIDIPINE BUTYRATE 50 MG/100 ML VIAL IV SCH (13:30)
[2024-04-09 20:00] LABS: URINE APPEARANCE Turbid; URINE BILIRRUBIN Negative (NEGATIVE); URINE BLOOD Trace; URINE COLOR Yellow; URINE GLUCOSE Negative (NEGATIVE); URINE KETONE Negative (NEGATIVE); URINE LEUKOCYTE Large; URINE NITRATE Negative; URINE UROBILINOGEN 0.2 E.U./dl
[2024-04-09 20:04] LABS: URINE BACTERIA 1387.9 uL (0.0-1933); URINE CAST 7.36 uL (0.0-1.40); URINE EPITHELIAL CELLS 35.3 uL (0.0-38.8); URINE RBC 917.5 uL (0.0-20.8); URINE WBC 2515.7 uL (0.0-23.2)
[2024-04-09 20:19] LABS: URINE PROTEIN 100 (NEGATIVE)
[2024-04-09 20:23] LABS: URINE SPERM A; URINE YEAST MANY /hpf
[2024-04-10] VITALS (16 sets, daily range): BP systolic 140–197; BP diastolic 61–99; O2SAT 98–100
[2024-04-10] MEDS ORDERED: FAMOTIDINE/PF 20 MG/2 ML VIAL IV PUSH ONE (15:45)
[2024-04-10] MEDS ORDERED: ONDANSETRON HCL 2 MG/ML VIAL ONE ×2 (15:47→23:37)
[2024-04-10] MEDS ORDERED: FAMOTIDINE/PF 20 MG/2 ML VIAL ONE (15:47)
[2024-04-10] MEDS ORDERED: ONDANSETRON HCL 4 MG in DEXTROSE 5 % IN WATER 50 ML IV SCH (17:00)
[2024-04-10] MEDS ORDERED: hydrALAZINE HCL 50 MG TABLET PO SCH (17:00)
[2024-04-10] MEDS ORDERED: FUROsemide 20 MG/2 ML VIAL IV SCH (17:00)
[2024-04-10] MEDS ORDERED: AMINO ACIDS 1 EACH TABLET PO SCH (17:00)
[2024-04-10] MEDS ORDERED: INSULIN LISPRO 1,000 UNIT/10 ML UNITS SUBCUTANEO PRN (23:45)
[2024-04-10] MEDS ORDERED: DEXTROSE 50 % IN WATER 0.5 G/ML DISP.SYRIN IV PRN (23:45)
[2024-04-11] VITALS (22 sets, daily range): BP systolic 122–175; BP diastolic 45–98; O2SAT 100
[2024-04-11] MEDS ORDERED: hydrALAZINE HCL 20 MG VIAL IV SCH (06:02)
[2024-04-11] MEDS ORDERED: hydrALAZINE HCL 20 MG VIAL ONE (06:03)
[2024-04-11 06:31] LABS: HEMATOCRIT 27.3 % (36.0-45.00); MEAN CELL VOLUME 83.1 fL (80.00-100.00); MEAN CORPUSCULAR HEMOGLOBIN 27.4 pg (27.00-32.0); PLATELET COUNT 250 K/uL (150-450); RED BLOOD COUNT 3.29 M/uL (4.00-6.00); RED CELL DISTRIBUTION WIDTH 17.3 % (11.5-14.5)
[2024-04-11 06:43] LABS: ALBUMIN 2.3 gm/dL (3.4-5.0); BILIRUBIN TOTAL 0.33 mg/dL (0.3-1.2); CALCIUM 8.4 mg/dL (8.5-10.1); CREATININE SERUM 1.76 mg/dL (0.55-1.02); GFR 28.8; GLOBULINA 3.5 G/DL (2.4-3.5); MAGNESIUM 1.5 mg/dL (1.8-2.4); PHOSPHOROUS 3.7 mg/dL (2.5-4.9); POTASSIUM 3.75 mEq/L (3.5-5.1); TOTAL PROTEIN 5.8 gm/dL (6.4-8.2)
[2024-04-11] MEDS ORDERED: NIFEDIPINE 30 MG TAB.SA.OSM PO SCH (09:00)
[2024-04-11] MEDS ORDERED: ONDANSETRON HCL 2 MG/ML VIAL ONE ×2 (09:16→16:35)
[2024-04-11] MEDS ORDERED: MAGNESIUM SULFATE IN WATER 50 ML IV NR (14:00)
[2024-04-11] MEDS ORDERED: hydrALAZINE HCL 50 MG TABLET PO SCH (17:00)
[2024-04-11] MEDS ORDERED: FUROsemide 20 MG/2 ML VIAL IV SCH (21:00)
[2024-04-11] MEDS ORDERED: GABAPENTIN 600 MG TABLET PO ONE (21:00)
[2024-04-11] MEDS ORDERED: CARVEDILOL 25 MG TABLET PO SCH (21:00)
[2024-04-12] VITALS (15 sets, daily range): BP systolic 119–162; BP diastolic 47–97; O2SAT 10–100
[2024-04-12] MEDS ORDERED: ONDANSETRON HCL 2 MG/ML VIAL ONE ×2 (00:37→08:28)
[2024-04-12] MEDS ORDERED: NIFEDIPINE 90 MG TAB.SA.OSM PO SCH (09:00)
[2024-04-12] MEDS ORDERED: NIFEDIPINE 60 MG TAB.SA.OSM PO SCH (09:00)
[2024-04-12] MEDS ORDERED: GABAPENTIN 300 MG CAPSULE PO SCH (09:53)
[2024-04-12] MEDS ORDERED: hydrALAZINE HCL 50 MG TABLET PO SCH (17:00)
[2024-04-12] MEDS ORDERED: hydrALAZINE HCL 50 MG,hydrALAZINE HCL 25 MG PO SCH (17:00)
[2024-04-13 02:24] VITALS: BP 153/72; O2SAT 95
[2024-04-13 07:18] LABS: HEMATOCRIT 25.7 % (36.0-45.00); MEAN CELL VOLUME 84.1 fL (80.00-100.00); MEAN CORPUSCULAR HGB CONC 32.2 g/dl (32.0-36.0); PLATELET COUNT 249 K/uL (150-450); RED BLOOD COUNT 3.05 M/uL (4.00-6.00); RED CELL DISTRIBUTION WIDTH 17.4 % (11.5-14.5)
[2024-04-13 07:19] LABS: HEMOGLOBIN 8.3 g/dL (12.0-15.00); MEAN CORPUSCULAR HEMOGLOBIN 27.2 pg (27.00-32.0)
[2024-04-13 08:06] LABS: ALBUMIN 2.1 gm/dL (3.4-5.0); BILIRUBIN TOTAL 0.23 mg/dL (0.3-1.2); CALCIUM 8.3 mg/dL (8.5-10.1); CREATININE SERUM 2.55 mg/dL (0.55-1.02); GFR 18.78; GLOBULINA 3.1 G/DL (2.4-3.5); MAGNESIUM 2.1 mg/dL (1.8-2.4); PHOSPHOROUS 4.5 mg/dL (2.5-4.9); POTASSIUM 3.54 mEq/L (3.5-5.1); TOTAL PROTEIN 5.2 gm/dL (6.4-8.2)
[2024-04-13 08:49] VITALS: BP 120/63; O2SAT 98
[2024-04-13] MEDS ORDERED: BUMETANIDE 0.5 MG TABLET PO SCH (09:00)
[2024-04-13 17:12] VITALS: BP 147/68
[2024-04-14 01:06] VITALS: BP 188/78; O2SAT 97
[2024-04-14] MEDS ORDERED: BUMETANIDE 0.5 MG TABLET PO SCH (09:00)
[2024-04-14 09:19] VITALS: BP 150/80; O2SAT 94
[2024-04-14] MEDS ORDERED: HYDRALAZINE HC100 MG PO (15:24)
[2024-04-14] MEDS ORDERED: GABAPENTIN300 MG PO (15:25)
[2024-04-14] MEDS ORDERED: INTEGRA PLUS C1 EACH PO (15:25)
[2024-04-14] MEDS ORDERED: PROCARDIA XL90 MG PO (15:25)
[2024-04-14] MEDS ORDERED: CARVEDILOL25 MG PO (15:25)
[2024-04-14] MEDS ORDERED: PRE PROTEIN1 EACH PO (15:26)
[2024-04-14] MEDS ORDERED: BUMETANIDE0.5 MG PO (15:26)
[2024-04-14] MEDS ORDERED: hydrALAZINE HCL 50 MG TABLET PO SCH (17:00)
== END 2024-04-14 17:14 | disposition home or self-care (01) | DRG 291 ==
LOC: ER 23:00 → ICU-2 04-08 11:30 → ICU 04-08 11:30 → MEDJ 04-12 19:22
PROVIDERS: Internal Medicine; Internal Medicine Infectious Disease; ADMIT Internal Medicine; ATTEND Internal Medicine
PROC: 4A12X4Z Monitoring of Cardiac Electrical Activity, External Approach (ICD-10-PCS; principal; 2024-04-08)
PROC: B020ZZZ Computerized Tomography (CT Scan) of Brain (ICD-10-PCS; 2024-04-08)
PROC: B246ZZZ Ultrasonography of Right and Left Heart (ICD-10-PCS; 2024-04-08)
DX: I13.0 Hypertensive heart and chronic kidney disease with heart failure and stage 1 through stage 4 chronic kidney disease, or unspecified chronic kidney disease (principal); I50.33 Acute on chronic diastolic (congestive) heart failure; I16.1 Hypertensive emergency; N17.9 Acute kidney failure, unspecified; E11.649 Type 2 diabetes mellitus with hypoglycemia without coma; E11.22 Type 2 diabetes mellitus with diabetic chronic kidney disease; N18.9 Chronic kidney disease, unspecified; D64.89 Other specified anemias; Z79.84 Long term (current) use of oral hypoglycemic drugs; Z79.4 Long term (current) use of insulin

== ENCOUNTER 2024-06-14 10:27 | Outpatient (CLI) | payer OTHER ==
[~2024-06-14 10:27] MED LIST changes: +CARVEDILOL25 MG PO; +GABAPENTIN300 MG PO; +HYDRALAZINE HC100 MG PO; +PRE PROTEIN1 EACH PO
== END 2024-06-14 10:31 | disposition home or self-care (01) ==
LOC: MAMO-SONO 10:27
PROVIDERS: ATTEND Internal Medicine
DX: N64.4 Mastodynia (principal); R92.8 Other abnormal and inconclusive findings on diagnostic imaging of breast; Z12.31 Encounter for screening mammogram for malignant neoplasm of breast

== ENCOUNTER 2024-08-22 12:06 | Inpatient (IN) | payer OTHER ==
[~2024-08-22] VITALS: Ht 91.4 cm; Wt 59.0 kg
[2024-08-22 13:08] LABS: HEMATOCRIT 25.7 % (36.0-45.00); MEAN CELL VOLUME 82.7 fL (80.00-100.00); MEAN CORPUSCULAR HGB CONC 33.2 g/dl (32.0-36.0); PLATELET COUNT 219 K/uL (150-450); RED BLOOD COUNT 3.11 M/uL (4.00-6.00); RED CELL DISTRIBUTION WIDTH 14.2 % (11.5-14.5)
[2024-08-22 13:10] LABS: HEMOGLOBIN 8.5 g/dL (12.0-15.00); MEAN CORPUSCULAR HEMOGLOBIN 27.3 pg (27.00-32.0)
[2024-08-22 13:13] LABS: ERYTHROCYTE SEDIMENTATION RATE 45 mm/hr
[2024-08-22 13:29] LABS: URINE APPEARANCE Error; URINE BILIRRUBIN Negative (NEGATIVE); URINE BLOOD Trace; URINE COLOR Yellow; URINE GLUCOSE Negative (NEGATIVE); URINE KETONE Negative (NEGATIVE); URINE LEUKOCYTE Small; URINE NITRATE Negative; URINE UROBILINOGEN 0.2 E.U./dl
[2024-08-22 13:30] LABS: URINE BACTERIA 341.4 uL (0.0-1933); URINE EPITHELIAL CELLS 5.3 uL (0.0-38.8); URINE RBC 35.6 uL (0.0-20.8); URINE WBC 187.9 uL (0.0-23.2)
[2024-08-22 13:37] LABS: INR 1.05; PARTIAL THROMBOPLASTIN TIME 25.7 SECONDS (22.0-34.0); PROTHROMBIN TIME 11.4 SECONDS (9.0-11.5)
[2024-08-22 13:46] LABS: URINE CAST 0.29 uL (0.0-1.40); URINE PROTEIN 300 (NEGATIVE)
[2024-08-22] MEDS ORDERED: NIFEDIPINE 90 MG TAB.SA.OSM PO STA (13:53)
[2024-08-22 13:58] LABS: ALBUMIN 3.8 gm/dL (3.4-5.0); ALKALINE PHOSPHATASE 70 U/L (50-136); ALT/SGPT 34 U/L (12-78); ANION GAP 11 (10.0-20.0); AST/SGOT 19 U/L (15-37); BILIRUBIN TOTAL 0.37 mg/dL (0.3-1.2); BLOOD UREA NITROGEN 58 mg/dL (7-18); CALCIUM 9.5 mg/dL (8.5-10.1); CARBON DIOXIDE 25 mEq/L (21-32); CHLORIDE 112 mmol/L (98-107); CHOL HDL RATIO 2.2 (0-5.0); CHOLESTEROL 130 mg/dL (0-200); GLUCOSE FASTING 97 mg/dL (65-100); HDL 60 mg/dl (40-60); LDL 52 mg/dl (0-130); OSMOLALITY SERUM 301 MOSM/KG (275-295); PHOSPHOROUS 4.2 mg/dL (2.5-4.9); POTASSIUM 5.15 mEq/L (3.5-5.1); SODIUM 143 mmol/L (136-145); TOTAL PROTEIN 7.8 gm/dL (6.4-8.2); TRIGLYCERIDES 91 mg/dL (0-150); VLDL 18 (0-39)
[2024-08-22 13:59] LABS: BUN CREA RATIO 15 (7.0-25.0); C-REACTIVE PROTEIN < 0.29 MG/DL (0.00-0.29); CREATININE SERUM 3.95 mg/dL (0.55-1.02); GFR 11.33
[2024-08-22] MEDS ORDERED: hydrALAZINE HCL 20 MG VIAL IV PRN (14:00)
[2024-08-22] MEDS ORDERED: SODIUM POLYSTYRENE SULFONATE 30G/8 TSP PO NR (14:15)
[2024-08-22] MEDS ORDERED: RINGERS SOLUTION,LACTATED 1,000 ML IV SCH (15:15)
[2024-08-22 15:42] LABS: RH NEGATIVE
[2024-08-22] MEDS ORDERED: CARVEDILOL 25 MG TABLET PO SCH (17:00)
[2024-08-22] MEDS ORDERED: NIFEDIPINE 90 MG TAB.SA.OSM PO SCH (17:00)
[2024-08-22] MEDS ORDERED: CEFTRIAXONE SODIUM 2,000 MG in 0.9 % SODIUM CHLORIDE 100 ML IV SCH (17:00)
[2024-08-22] MEDS ORDERED: hydrALAZINE HCL 50 MG TABLET PO SCH (17:00)
[2024-08-22 17:30] VITALS: BP 160/77; O2SAT 96
[2024-08-22] MEDS ORDERED: PANTOPRAZOLE SODIUM 40 MG/VIAL VIAL IV SCH (21:00)
[2024-08-23 01:18] VITALS: BP 131/51; O2SAT 97
[2024-08-23] MEDS ORDERED: NIFEDIPINE 90 MG TAB.SA.OSM PO SCH (09:00)
[2024-08-23] MEDS ORDERED: PANTOPRAZOLE SODIUM 40 MG TABLET.DR PO SCH (09:00)
[2024-08-23] MEDS ORDERED: BUMETANIDE 0.5 MG TABLET PO SCH (09:00)
[2024-08-23 09:39] VITALS: BP 144/71
[2024-08-23 17:00] VITALS: BP 113/54; O2SAT 95
[2024-08-23] MEDS ORDERED: PEG3350/SOD SULF,BICARB,CL/KCL 4,000 ML GALLON PO NR (18:00)
[2024-08-23 18:18] LABS: HEMATOCRIT 29.2 % (36.0-45.00); HEMOGLOBIN 9.8 g/dL (12.0-15.00); MEAN CELL VOLUME 84.2 fL (80.00-100.00); MEAN CORPUSCULAR HEMOGLOBIN 28.3 pg (27.00-32.0); MEAN CORPUSCULAR HGB CONC 33.7 g/dl (32.0-36.0); PLATELET COUNT 172 K/uL (150-450); RED BLOOD COUNT 3.47 M/uL (4.00-6.00); RED CELL DISTRIBUTION WIDTH 13.8 % (11.5-14.5)
[2024-08-24 01:36] VITALS: BP 183/81; O2SAT 98
[2024-08-24 08:30] VITALS: BP 160/70; O2SAT 94
[2024-08-24 12:51] LABS: HEMATOCRIT 33.6 % (36.0-45.00); HEMOGLOBIN 11.4 g/dL (12.0-15.00); MEAN CELL VOLUME 84.1 fL (80.00-100.00); MEAN CORPUSCULAR HEMOGLOBIN 28.5 pg (27.00-32.0); MEAN CORPUSCULAR HGB CONC 33.9 g/dl (32.0-36.0); PLATELET COUNT 158 K/uL (150-450); RED BLOOD COUNT 3.99 M/uL (4.00-6.00); RED CELL DISTRIBUTION WIDTH 14.2 % (11.5-14.5)
[2024-08-24] MEDS ORDERED: MIDAZOLAM HCL 2 MG/2 ML VIAL IV ONE (16:30)
[2024-08-24] MEDS ORDERED: fentaNYL CITRATE 50 MCG/ML AMPUL IV PUSH ONE (16:30)
[2024-08-24] MEDS ORDERED: DIPHENHYDRAMINE HCL 50 MG/ML VIAL 1ML IV ONE (16:30)
[2024-08-24 17:56] VITALS: BP 188/90
[2024-08-24] MEDS ORDERED: LABETALOL HCL 100 MG/20 ML ML IV STA (18:24)
[2024-08-24 19:19] VITALS: BP 169/87
[2024-08-24 21:08] VITALS: BP 188/83
[2024-08-24] MEDS ORDERED: hydrALAZINE HCL 50 MG TABLET PO ONE (21:15)
[2024-08-24] MEDS ORDERED: NIFEDIPINE 90 MG TAB.SA.OSM PO ONE (21:15)
[2024-08-25 01:09] VITALS: BP 201/82; O2SAT 96
[2024-08-25 05:04] VITALS: BP 160/60; O2SAT 97
[2024-08-25] MEDS ORDERED: HYDRALAZINE HCL50 MG PO (07:13)
[2024-08-25] MEDS ORDERED: BUMETANIDE0.5 MG PO (07:13)
[2024-08-25] MEDS ORDERED: CARVEDILOL25 MG PO (07:13)
[2024-08-25] MEDS ORDERED: PROCARDIA XL90 MG PO (07:13)
[2024-08-25] MEDS ORDERED: INTEGRA PLUS C1 EACH PO (07:14)
[2024-08-25 08:25] VITALS: BP 137/65; O2SAT 95
[2024-08-25] MEDS ORDERED: PANTOPRAZOLE SODIUM 40 MG/VIAL VIAL IV SCH (09:00)
== END 2024-08-25 11:10 | disposition home or self-care (01) | DRG 292 ==
LOC: SURH 12:06 → MEDI 13:25
PROVIDERS: ADMIT Internal Medicine; ATTEND Internal Medicine
PROC: BT4JZZZ Ultrasonography of Kidneys and Bladder (ICD-10-PCS; 2024-08-22)
PROC: 30233N1 Transfusion of Nonautologous Red Blood Cells into Peripheral Vein, Percutaneous Approach (ICD-10-PCS; 2024-08-22)
PROC: 0DBK8ZX Excision of Ascending Colon, Via Natural or Artificial Opening Endoscopic, Diagnostic (ICD-10-PCS; principal; 2024-08-24)
PROC: 0DBL8ZX Excision of Transverse Colon, Via Natural or Artificial Opening Endoscopic, Diagnostic (ICD-10-PCS; 2024-08-24)
PROC: 0DBN8ZX Excision of Sigmoid Colon, Via Natural or Artificial Opening Endoscopic, Diagnostic (ICD-10-PCS; 2024-08-24)
PROC: 0DB68ZX Excision of Stomach, Via Natural or Artificial Opening Endoscopic, Diagnostic (ICD-10-PCS; 2024-08-24)
DX: I13.2 Hypertensive heart and chronic kidney disease with heart failure and with stage 5 chronic kidney disease, or end stage renal disease (principal); K57.32 Diverticulitis of large intestine without perforation or abscess without bleeding; N18.5 Chronic kidney disease, stage 5; N17.9 Acute kidney failure, unspecified; I50.30 Unspecified diastolic (congestive) heart failure; E11.22 Type 2 diabetes mellitus with diabetic chronic kidney disease; N18.9 Chronic kidney disease, unspecified; D63.1 Anemia in chronic kidney disease; Z79.4 Long term (current) use of insulin; K64.8 Other hemorrhoids; E87.5 Hyperkalemia; I50.9 Heart failure, unspecified

== ENCOUNTER 2024-10-03 07:16 | Outpatient (CLI) | payer OTHER | END 2024-10-03 07:17 | disposition home or self-care (01) | LOC: NUCLEAR 07:16 | PROVIDERS: ATTEND Internal Medicine | DX: I20.9 Angina pectoris, unspecified (principal) | CPT/HCPCS: 78452; 93017; A9500; J0153 ==

== ENCOUNTER 2024-11-12 14:06 | Inpatient (IN) | payer OTHER ==
[~2024-11-12] VITALS: Ht 152.4 cm; Wt 68.0 kg
--- NOTE | 2024-11-12 14:42 | NUR ---
PACIENTE ALERTA Y ORIENTADA X3. REFIERE COMENZAR CON DOLOR ABDOMINAL, DIARREAS Y VOMITOS DESDE SARAH. SE MADHURI S/V Y SE UBICA.
[2024-11-12 16:51] LABS: BASO % 0.4 % (0.1-1.2); EOS # 0.06 (0.04-0.54); EOS % 0.9 % (0.7-7.0); LYMPH # 1.74 (1.18-3.74); LYMPH % 24.9 % (19.3-53.1); MEAN PLATELET VOLUME 11.60 fl (9.4-12.4); MONO # 0.50 (0.24-0.82); MONO % 7.2 % (4.7-12.5); NEUT # 4.62 (1.56-6.13); NEUT % 66.2 % (34.0-71.1); RED CELL DISTRIBUTION WIDTH 14.6 % (11.6-14.4)
--- NOTE | 2024-11-12 17:04 | NUR ---
SE ORIENTA PACIENTE SOBRE TX MEDICO Y EL MISMO REFIERE ENTENDER Y ACEPTAR CHRISTI. SE PROCEDE A EXTRAER MUESTRAS DE LAB. BAJO MEDIDAS ASEPTICAS.
[2024-11-12 17:21] LABS: ALT/SGPT 19.0 U/L (12-78); AST/SGOT 11.0 U/L (15-37); BILIRUBIN TOTAL 0.48 mg/dL (0.3-1.2); GLOBULINA 3.3 G/DL (2.4-3.5); GLUCOSE FASTING 94.0 mg/dL (65-100); OSMOLALITY SERUM 306.0 MOSM/KG (275-295)
[2024-11-12 17:33] LABS: BUN CREA RATIO 10.0 (7.0-25.0); CREATININE SERUM 5.3 mg/dL (0.55-1.02); GFR 8.07
[2024-11-12 21:08] LABS: URINE APPEARANCE Clear; URINE BILIRRUBIN Negative (NEGATIVE); URINE BLOOD Trace; URINE COLOR Yellow; URINE GLUCOSE Negative (NEGATIVE); URINE KETONE Negative (NEGATIVE); URINE LEUKOCYTE Moderate; URINE NITRATE Negative; URINE UROBILINOGEN 0.2 E.U./dl
[2024-11-12 21:11] LABS: URINE BACTERIA 561.5 uL (0.0-1933); URINE CAST 2.19 uL (0.0-1.40); URINE EPITHELIAL CELLS 32.3 uL (0.0-38.8); URINE RBC 9.2 uL (0.0-20.8); URINE WBC 300.0 uL (0.0-23.2)
[2024-11-12 21:29] LABS: TYPE CELLS SQUAMOUS; URINE PROTEIN 300 (NEGATIVE); URINE YEAST MODERATE /hpf
[2024-11-12] MEDS ORDERED: CEFTRIAXONE SODIUM 2,000 MG in 0.9 % SODIUM CHLORIDE 100 ML IV SCH (22:06)
[2024-11-12] MEDS ORDERED: FLUCONAZOLE IN NACL,ISO-OSM 50 ML IV SCH (22:07)
[2024-11-12] MEDS ORDERED: PANTOPRAZOLE SODIUM 40 MG in 0.9 % SODIUM CHLORIDE 8 ML IV PUSH SCH (22:08)
[2024-11-12] MEDS ORDERED: hydrALAZINE HCL 20 MG VIAL IV PRN (22:15)
[2024-11-12] MEDS ORDERED: ONDANSETRON HCL 4 MG in 0.9 % SODIUM CHLORIDE 50 ML IV PRN (22:15)
[2024-11-12] MEDS ORDERED: 0.9 % SODIUM CHLORIDE 1,000 ML IV SCH (22:15)
[2024-11-13] VITALS (7 sets, daily range): BP systolic 107–218; BP diastolic 72–90; O2SAT 94–99
[2024-11-13 03:44] LABS: INR 1.17
[2024-11-13 03:49] LABS: BASO % 0.1 % (0.1-1.2); EOS # 0.04 (0.04-0.54); EOS % 0.6 % (0.7-7.0); LYMPH # 1.15 (1.18-3.74); LYMPH % 16.7 % (19.3-53.1); MEAN PLATELET VOLUME 11.50 fl (9.4-12.4); MONO # 0.33 (0.24-0.82); MONO % 4.8 % (4.7-12.5); NEUT # 5.32 (1.56-6.13); NEUT % 77.2 % (34.0-71.1); RED CELL DISTRIBUTION WIDTH 14.6 % (11.6-14.4)
[2024-11-13 03:58] LABS: ALT/SGPT 17.0 U/L (12-78); AST/SGOT 14.0 U/L (15-37); BILIRUBIN TOTAL 0.53 mg/dL (0.3-1.2); GLOBULINA 2.8 G/DL (2.4-3.5); GLUCOSE FASTING 94.0 mg/dL (65-100); OSMOLALITY SERUM 309.0 MOSM/KG (275-295)
[2024-11-13 04:00] LABS: BUN CREA RATIO 11.0 (7.0-25.0); GFR 8.61
[2024-11-13 04:17] LABS: CREATININE SERUM 5.01 mg/dL (0.55-1.02)
[2024-11-13] MEDS ORDERED: FLUCONAZOLE IN NACL,ISO-OSM 200 MG/100 ML PIGGYBAG IV SCH (09:00)
[2024-11-13] MEDS ORDERED: INSULIN LISPRO 1,000 UNIT/10 ML UNITS SUBCUTANEO PRN (10:00)
[2024-11-13] MEDS ORDERED: DEXTROSE 50 % IN WATER 0.5 G/ML VIAL IV PRN (10:00)
[2024-11-13] MEDS ORDERED: LACTOBACILLUS ACIDOPHILUS 1 CAP CAP PO NR (11:00)
[2024-11-13] MEDS ORDERED: SOD FERRIC GLUC COMPLX/SUCROSE 62.5 MG in 0.9 % SODIUM CHLORIDE 50 ML IV SCH (12:00)
[2024-11-13] MEDS ORDERED: CITRIC ACID/SODIUM CITRATE 30 ML BLIST.PACK PO SCH (17:00)
[2024-11-13] MEDS ORDERED: LACTOBACILLUS ACIDOPHILUS 1 CAP CAP PO SCH (17:00)
[2024-11-14] VITALS (11 sets, daily range): BP systolic 125–211; BP diastolic 63–87; O2SAT 90–99
[2024-11-14 07:04] LABS: BASO % 0.5 % (0.1-1.2); EOS # 0.02 (0.04-0.54); EOS % 0.2 % (0.7-7.0); LYMPH # 1.49 (1.18-3.74); LYMPH % 18.1 % (19.3-53.1); MEAN PLATELET VOLUME 11.20 fl (9.4-12.4); MONO # 0.44 (0.24-0.82); MONO % 5.3 % (4.7-12.5); NEUT # 6.17 (1.56-6.13); NEUT % 74.9 % (34.0-71.1); RED CELL DISTRIBUTION WIDTH 15.1 % (11.6-14.4)
[2024-11-14 07:19] LABS: ERYTHROCYTE SEDIMENTATION RATE < 1 mm/hr (0-30)
[2024-11-14 07:46] LABS: ALT/SGPT 15.0 U/L (12-78); AST/SGOT 9.0 U/L (15-37); BILIRUBIN TOTAL 0.38 mg/dL (0.3-1.2); GLOBULINA 2.4 G/DL (2.4-3.5); GLUCOSE FASTING 101.0 mg/dL (65-100); LDH 221.0 U/L (84-246)
[2024-11-14 08:24] LABS: BUN CREA RATIO 12.0 (7.0-25.0); GFR 8.53
[2024-11-14 08:25] LABS: OSMOLALITY SERUM 316.0 MOSM/KG (275-295)
[2024-11-14 08:26] LABS: CREATININE SERUM 5.05 mg/dL (0.55-1.02)
[2024-11-14] MEDS ORDERED: FLUCONAZOLE IN NACL,ISO-OSM 2 MG/ML ML IV SCH (09:00)
[2024-11-14] MEDS ORDERED: CYANOCOBALAMIN (VITAMIN B-12) 1,000 MCG/ML VIAL IM SCH (09:00)
[2024-11-14] MEDS ORDERED: NIFEDIPINE 90 MG TAB.SA.OSM PO SCH (10:16)
[2024-11-14] MEDS ORDERED: METOPROLOL SUCCINATE 50 MG TAB.SR.24H PO SCH (10:17)
[2024-11-14] MEDS ORDERED: DEXTROSE 5 % IN WATER 1,000 ML IV SCH (10:30)
[2024-11-14] MEDS ORDERED: MORPHINE SULFATE 4 MG/ML CARTRIDGE IV STA (14:02)
[2024-11-14] MEDS ORDERED: DOXAZOSIN MESYLATE 2 MG TABLET PO SCH (17:00)
[2024-11-14] MEDS ORDERED: DOXAZOSIN MESYLATE 4 MG TABLET PO SCH (17:42)
[2024-11-14] MEDS ORDERED: PANTOPRAZOLE SODIUM 40 MG/VIAL VIAL IV SCH (21:00)
[2024-11-14] MEDS ORDERED: TRAMADOL HCL 50 MG TABLET PO PRN (21:45)
[2024-11-15] VITALS (10 sets, daily range): BP systolic 69–112; BP diastolic 38–53; O2SAT 95–100
[2024-11-15 11:38] LABS: BASO % 0.2 % (0.1-1.2); EOS # 0.01 (0.04-0.54); EOS % 0.1 % (0.7-7.0); LYMPH # 1.99 (1.18-3.74); LYMPH % 19.9 % (19.3-53.1); MEAN PLATELET VOLUME 11.90 fl (9.4-12.4); MONO # 0.72 (0.24-0.82); MONO % 7.2 % (4.7-12.5); NEUT # 7.16 (1.56-6.13); NEUT % 71.7 % (34.0-71.1); RED CELL DISTRIBUTION WIDTH 16.2 % (11.6-14.4)
[2024-11-15 12:02] LABS: MYCOPLASMA PNEUMONIAE IGM NON REACTIVE (NO REACTIVE)
[2024-11-15 12:09] LABS: ALT/SGPT 16.0 U/L (12-78); AST/SGOT 14.0 U/L (15-37); BILIRUBIN TOTAL 0.26 mg/dL (0.3-1.2); GLOBULINA 2.7 G/DL (2.4-3.5); GLUCOSE FASTING 105.0 mg/dL (65-100)
[2024-11-15 12:11] LABS: URINE APPEARANCE Clear; URINE BILIRRUBIN Negative (NEGATIVE); URINE BLOOD Negative; URINE COLOR Yellow; URINE GLUCOSE Negative (NEGATIVE); URINE KETONE Trace (NEGATIVE); URINE LEUKOCYTE Trace; URINE NITRATE Negative; URINE UROBILINOGEN 0.2 E.U./dl
[2024-11-15 12:12] LABS: URINE BACTERIA 27.5 uL (0.0-1933); URINE EPITHELIAL CELLS 3.6 uL (0.0-38.8); URINE WBC 15.9 uL (0.0-23.2)
[2024-11-15 12:15] LABS: URINE CAST 0.14 uL (0.0-1.40); URINE PROTEIN 300 (NEGATIVE); URINE RBC 0.2 uL (0.0-20.8)
[2024-11-15 12:26] LABS: ob POSITIVE (NEGATIVE)
[2024-11-15 13:21] LABS: BUN CREA RATIO 12.0 (7.0-25.0); GFR 7.75; OSMOLALITY SERUM 317.0 MOSM/KG (275-295)
[2024-11-15 13:23] LABS: CREATININE SERUM 5.49 mg/dL (0.55-1.02)
[2024-11-15] MEDS ORDERED: BISMUTH SUBSALICYLATE 524 MG/30 ML BLIST.PACK PO PRN (15:30)
[2024-11-15] MEDS ORDERED: LOPERAMIDE HCL 2 MG CAPSULE PO PRN (15:30)
[2024-11-15] MEDS ORDERED: CLONIDINE HCL 0.1 MG TABLET PO PRN (15:30)
[2024-11-15] MEDS ORDERED: ONDANSETRON HCL 4 MG in DEXTROSE 5 % IN WATER 50 ML IV PRN (15:30)
[2024-11-15] MEDS ORDERED: LOPERAMIDE HCL 2 MG CAPSULE PO NR (16:00)
[2024-11-15] MEDS ORDERED: DOXAZOSIN MESYLATE 2 MG TABLET PO SCH (17:00)
[2024-11-15] MEDS ORDERED: SUCRALFATE 1 G TABLET PO SCH (17:00)
[2024-11-15] MEDS ORDERED: NOREPINEPHRINE BITARTRATE 4 MG in DEXTROSE 5 % IN WATER 250 ML IV SCH (21:45)
[2024-11-15] MEDS ORDERED: 0.9 % SODIUM CHLORIDE 500 ML IV ONE (21:45)
[2024-11-16] VITALS (9 sets, daily range): BP systolic 65–125; BP diastolic 33–69; O2SAT 79–100
[2024-11-16] MEDS ORDERED: FLUCONAZOLE IN NACL,ISO-OSM 200 MG/100 ML PIGGYBAG IV NR (08:45)
[2024-11-16] MEDS ORDERED: 0.9 % SODIUM CHLORIDE 250 ML IV STA (11:02)
[2024-11-16] MEDS ORDERED: CEFTRIAXONE SODIUM 2,000 MG in DEXTROSE 5 % IN WATER 100 ML IV SCH (12:00)
[2024-11-16] MEDS ORDERED: LORazepam 2 MG/ML VIAL IV NR (12:30)
[2024-11-16 15:45] LABS: BASO % 0.1 % (0.1-1.2); EOS # 0.03 (0.04-0.54); EOS % 0.4 % (0.7-7.0); LYMPH # 0.74 (1.18-3.74); LYMPH % 10.2 % (19.3-53.1); MEAN PLATELET VOLUME 12.50 fl (9.4-12.4); MONO # 0.49 (0.24-0.82); MONO % 6.8 % (4.7-12.5); NEUT # 5.92 (1.56-6.13); NEUT % 81.7 % (34.0-71.1); RED CELL DISTRIBUTION WIDTH 16.2 % (11.6-14.4)
[2024-11-16 16:26] LABS: ALT/SGPT 18.0 U/L (12-78); AST/SGOT 26.0 U/L (15-37); BILIRUBIN TOTAL 0.37 mg/dL (0.3-1.2); GLOBULINA 2.6 G/DL (2.4-3.5); GLUCOSE FASTING 121.0 mg/dL (65-100); OSMOLALITY SERUM 312.0 MOSM/KG (275-295)
[2024-11-16 16:30] LABS: BUN CREA RATIO 11.0 (7.0-25.0); GFR 6.93
[2024-11-16 16:34] LABS: CREATININE SERUM 6.05 mg/dL (0.55-1.02)
[2024-11-16 19:59] LABS: URINE APPEARANCE Turbid; URINE BILIRRUBIN Negative (NEGATIVE); URINE BLOOD Trace; URINE COLOR Dark Yellow; URINE GLUCOSE Negative (NEGATIVE); URINE KETONE Trace (NEGATIVE); URINE LEUKOCYTE Large; URINE NITRATE Negative; URINE UROBILINOGEN 0.2 E.U./dl
[2024-11-16 20:00] LABS: URINE BACTERIA 4622.3 uL (0.0-1933); URINE CAST 14.51 uL (0.0-1.40); URINE EPITHELIAL CELLS 115.8 uL (0.0-38.8); URINE RBC 12.0 uL (0.0-20.8)
[2024-11-16 20:12] LABS: URINE PROTEIN 300 (NEGATIVE); URINE WBC > 5548.3 uL (0.0-23.2)
[2024-11-16 20:22] LABS: TYPE CELLS RENAL TUBULAR
[2024-11-16 20:23] LABS: URINE YEAST MANY /hpf
[2024-11-16 23:23] LABS: BASO % 0.1 % (0.1-1.2); EOS # 0.07 (0.04-0.54); EOS % 0.9 % (0.7-7.0); LYMPH # 0.53 (1.18-3.74); LYMPH % 7.2 % (19.3-53.1); MEAN PLATELET VOLUME 12.10 fl (9.4-12.4); MONO # 0.47 (0.24-0.82); MONO % 6.4 % (4.7-12.5); NEUT # 6.23 (1.56-6.13); NEUT % 84.6 % (34.0-71.1); RED CELL DISTRIBUTION WIDTH 16.5 % (11.6-14.4)
[2024-11-17] VITALS (19 sets, daily range): BP systolic 76–176; BP diastolic 36–99; O2SAT 95–100
[2024-11-17 06:46] LABS: BASO % 0.3 % (0.1-1.2); EOS # 0.04 (0.04-0.54); EOS % 0.6 % (0.7-7.0); LYMPH # 0.56 (1.18-3.74); LYMPH % 7.8 % (19.3-53.1); MEAN PLATELET VOLUME 12.80 fl (9.4-12.4); MONO # 0.68 (0.24-0.82); MONO % 9.5 % (4.7-12.5); NEUT # 5.81 (1.56-6.13); NEUT % 81.2 % (34.0-71.1); RED CELL DISTRIBUTION WIDTH 16.7 % (11.6-14.4)
[2024-11-17 07:46] LABS: ALT/SGPT 18.0 U/L (12-78); AST/SGOT 22.0 U/L (15-37); BILIRUBIN TOTAL 0.25 mg/dL (0.3-1.2); BUN CREA RATIO 10.0 (7.0-25.0); GFR 6.84; GLOBULINA 2.4 G/DL (2.4-3.5); GLUCOSE FASTING 141.0 mg/dL (65-100); OSMOLALITY SERUM 309.0 MOSM/KG (275-295)
[2024-11-17 07:54] LABS: CREATININE SERUM 6.12 mg/dL (0.55-1.02)
[2024-11-17] MEDS ORDERED: FLUCONAZOLE IN NACL,ISO-OSM 2 MG/ML ML IV SCH (09:00)
[2024-11-17] MEDS ORDERED: DOPamine HCL IN DEXTROSE 5 % 250 ML IV SCH (09:00)
[2024-11-17] MEDS ORDERED: FLUCONAZOLE IN NACL,ISO-OSM 50 ML IV SCH (09:00)
[2024-11-17 12:35] LABS: CORTISOL 23.17 ug/dl
[2024-11-17] MEDS ORDERED: MAGNESIUM SULFATE IN WATER 50 ML IV NR (12:40)
[2024-11-17] MEDS ORDERED: MEROPENEM 500 MG/VIAL VIAL IV SCH (21:00)
[2024-11-18] VITALS (15 sets, daily range): BP systolic 89–210; BP diastolic 52–111; O2SAT 96–100
[2024-11-18 08:06] LABS: ALT/SGPT 20.0 U/L (12-78); AST/SGOT 22.0 U/L (15-37); BILIRUBIN TOTAL 0.2 mg/dL (0.3-1.2); BUN CREA RATIO 10.0 (7.0-25.0); GFR 6.85; GLOBULINA 2.4 G/DL (2.4-3.5); GLUCOSE FASTING 137.0 mg/dL (65-100); OSMOLALITY SERUM 304.0 MOSM/KG (275-295)
[2024-11-18 08:21] LABS: BASO % 0.1 % (0.1-1.2); EOS # 0.04 (0.04-0.54); EOS % 0.6 % (0.7-7.0); LYMPH # 0.46 (1.18-3.74); LYMPH % 6.6 % (19.3-53.1); MEAN PLATELET VOLUME 12.10 fl (9.4-12.4); MONO # 0.47 (0.24-0.82); MONO % 6.8 % (4.7-12.5); NEUT # 5.91 (1.56-6.13); NEUT % 85.5 % (34.0-71.1); RED CELL DISTRIBUTION WIDTH 16.8 % (11.6-14.4)
[2024-11-18 09:13] LABS: CKMB 10.4 NG/ML (0.5-3.6); CREATININE SERUM 6.11 mg/dL (0.55-1.02)
[2024-11-18] MEDS ORDERED: CLEVIDIPINE BUTYRATE 100 ML IV SCH (12:45)
[2024-11-18] MEDS ORDERED: AA 4.25%/CAL/LYTES/DEXT 5% 1,000 ML PERIFERAL SCH (17:00)
[2024-11-19] VITALS (16 sets, daily range): BP systolic 145–170; BP diastolic 52–84; O2SAT 96–100
[2024-11-19 07:58] LABS: BASO % 0.1 % (0.1-1.2); EOS # 0.06 (0.04-0.54); EOS % 0.7 % (0.7-7.0); LYMPH # 0.49 (1.18-3.74); LYMPH % 5.6 % (19.3-53.1); MONO # 0.35 (0.24-0.82); MONO % 4.0 % (4.7-12.5); NEUT # 7.72 (1.56-6.13); NEUT % 88.7 % (34.0-71.1); RED CELL DISTRIBUTION WIDTH 16.2 % (11.6-14.4)
[2024-11-19 08:32] LABS: ALT/SGPT 21.0 U/L (12-78); AST/SGOT 23.0 U/L (15-37); BILIRUBIN TOTAL 0.39 mg/dL (0.3-1.2); BUN CREA RATIO 9.0 (7.0-25.0); GFR 10.22; GLOBULINA 2.6 G/DL (2.4-3.5); GLUCOSE FASTING 95.0 mg/dL (65-100); OSMOLALITY SERUM 289.0 MOSM/KG (275-295)
[2024-11-19 08:51] LABS: CREATININE SERUM 4.32 mg/dL (0.55-1.02)
[2024-11-19 11:07] LABS: campy Final report (.)
[2024-11-19] MEDS ORDERED: POTASSIUM CHLORIDE 20MEQ/100ML H2O PB IV NR (12:00)
[2024-11-19] MEDS ORDERED: LEVALBUTEROL HCL 0.63 MG/3 ML SOLUTION IH NR (15:30)
[2024-11-19] MEDS ORDERED: CALCIUM CARBONATE/VITAMIN D3 1 TAB TABLET PO SCH (17:00)
[2024-11-19] MEDS ORDERED: IPRATROPIUM BROMIDE 0.5 MG/2.5 ML AMPUL.NEB IH SCH (17:00)
[2024-11-19] MEDS ORDERED: SOD FERRIC GLUC COMPLX/SUCROSE 62.5 MG in 0.9 % SODIUM CHLORIDE 50 ML IV SCH (17:00)
[2024-11-19] MEDS ORDERED: LEVALBUTEROL HCL 0.63 MG/3 ML SOLUTION IH SCH (20:00)
[2024-11-20] VITALS (19 sets, daily range): BP systolic 141–180; BP diastolic 55–92; O2SAT 92–100
[2024-11-20 07:24] LABS: BASO % 0.2 % (0.1-1.2); EOS # 0.07 (0.04-0.54); EOS % 0.8 % (0.7-7.0); LYMPH # 0.34 (1.18-3.74); LYMPH % 3.6 % (19.3-53.1); MONO # 0.45 (0.24-0.82); MONO % 4.8 % (4.7-12.5); NEUT # 8.31 (1.56-6.13); NEUT % 89.1 % (34.0-71.1); RED CELL DISTRIBUTION WIDTH 15.7 % (11.6-14.4)
[2024-11-20 08:25] LABS: ALT/SGPT 17.0 U/L (12-78); AST/SGOT 23.0 U/L (15-37); BILIRUBIN TOTAL 0.55 mg/dL (0.3-1.2); BUN CREA RATIO 12.0 (7.0-25.0); GFR 10.11; GLOBULINA 2.6 G/DL (2.4-3.5); GLUCOSE FASTING 92.0 mg/dL (65-100); OSMOLALITY SERUM 295.0 MOSM/KG (275-295)
[2024-11-20 08:50] LABS: CREATININE SERUM 4.36 mg/dL (0.55-1.02)
[2024-11-20] MEDS ORDERED: EPOETIN ALFA-EPBX 10,000 UNIT/ML VIAL (Retacrit) SUBCUTANEO SCH (09:00)
[2024-11-20] MEDS ORDERED: CLEVIDIPINE BUTYRATE 50 ML IV SCH (12:00)
[2024-11-20 13:07] LABS: a:g ratio 1.5 (0.7-1.7); alpha 1 g 0.2 g/dL (0.0-0.4); beta g 0.6 g/dL (0.7-1.3); gamma g 0.8 g/dL (0.4-1.8); globulin t 2.2 g/dL (2.2-3.9); prot total 5.6 g/dL (6.0-8.5)
[2024-11-20 15:29] LABS: BASO % 0.2 % (0.1-1.2); EOS # 0.03 (0.04-0.54); EOS % 0.3 % (0.7-7.0); LYMPH # 0.26 (1.18-3.74); LYMPH % 2.7 % (19.3-53.1); MONO # 0.36 (0.24-0.82); MONO % 3.8 % (4.7-12.5); NEUT # 8.60 (1.56-6.13); NEUT % 90.9 % (34.0-71.1); RED CELL DISTRIBUTION WIDTH 15.5 % (11.6-14.4)
[2024-11-21] VITALS (20 sets, daily range): BP systolic 127–195; BP diastolic 54–123; O2SAT 88–100
[2024-11-21 07:37] LABS: BASO % 0.2 % (0.1-1.2); EOS # 0.02 (0.04-0.54); EOS % 0.2 % (0.7-7.0); LYMPH # 0.38 (1.18-3.74); LYMPH % 4.1 % (19.3-53.1); MONO # 0.54 (0.24-0.82); MONO % 5.8 % (4.7-12.5); NEUT # 8.18 (1.56-6.13); NEUT % 87.3 % (34.0-71.1); RED CELL DISTRIBUTION WIDTH 15.7 % (11.6-14.4)
[2024-11-21 08:07] LABS: ALT/SGPT 17.0 U/L (12-78); AST/SGOT 21.0 U/L (15-37); BILIRUBIN TOTAL 0.61 mg/dL (0.3-1.2); BUN CREA RATIO 9.0 (7.0-25.0); CREATININE SERUM 3.1 mg/dL (0.55-1.02); GFR 14.99; GLOBULINA 2.8 G/DL (2.4-3.5); GLUCOSE FASTING 77.0 mg/dL (65-100); OSMOLALITY SERUM 280.0 MOSM/KG (275-295)
[2024-11-21] MEDS ORDERED: NIFEDIPINE 60 MG TAB.SA.OSM PO SCH (09:00)
[2024-11-21 09:55] LABS: ABG PH 7.381 (7.35-7.45); ABG PO2 65.6 mmHg (80-100); BICARBONATE 21.4 mmol/l (23-25)
[2024-11-21 09:56] LABS: o2 32 %
[2024-11-21] MEDS ORDERED: MAGNESIUM SULFATE IN WATER 50 ML IV STA (10:28)
[2024-11-21] MEDS ORDERED: NIFEDIPINE 30 MG TAB.SA.OSM PO NR (13:00)
[2024-11-21] MEDS ORDERED: FLUCONAZOLE IN NACL,ISO-OSM 200 MG/100 ML PIGGYBAG IV SCH (13:00)
[2024-11-21] MEDS ORDERED: POTASSIUM CHLORIDE 20MEQ/100ML H2O PB IV NR (13:00)
[2024-11-21] MEDS ORDERED: VANCOMYCIN HCL 1,000 MG VIAL IV NR (16:00)
[2024-11-21] MEDS ORDERED: VANCOMYCIN HCL 500 MG VIAL IV SCH (16:00)
[2024-11-21] MEDS ORDERED: VANCOMYCIN HCL 1,000 MG VIAL ONE (16:07)
[2024-11-22 04:32] VITALS: BP 170/77; O2SAT 98
[2024-11-22 07:30] VITALS: BP 159/65; O2SAT 95
[2024-11-22] MEDS ORDERED: NIFEDIPINE 90 MG TAB.SA.OSM PO SCH (09:00)
[2024-11-22] MEDS ORDERED: FLUCONAZOLE IN NACL,ISO-OSM 2 MG/ML ML IV SCH (09:00)
[2024-11-22 12:00] VITALS: BP 110/97; O2SAT 97
[2024-11-22 15:25] VITALS: BP 133/64; O2SAT 94
[2024-11-22] MEDS ORDERED: HEPARIN SODIUM,PORCINE 5,000 UNITS/ML VIAL ONE (16:10)
[2024-11-22] MEDS ORDERED: EPOETIN ALFA EPBX SUBCUTANEO SCH (17:00)
[2024-11-22 18:35] LABS: ABG PH 7.407 (7.35-7.45)
[2024-11-22 18:37] LABS: ABG PO2 59.4 mmHg (80-100); BICARBONATE 23.7 mmol/l (23-25); o2 50 %
[2024-11-22 20:00] VITALS: BP 149/73; O2SAT 98
[2024-11-22 23:03] VITALS: BP 157/64; O2SAT 100
[2024-11-23 04:00] VITALS: BP 145/62; O2SAT 100
[2024-11-23 06:20] LABS: BASO % 0.1 % (0.1-1.2); EOS # 0.00 (0.04-0.54); EOS % 0.0 % (0.7-7.0); LYMPH # 0.17 (1.18-3.74); LYMPH % 1.9 % (19.3-53.1); MEAN PLATELET VOLUME 11.20 fl (9.4-12.4); MONO # 0.15 (0.24-0.82); MONO % 1.7 % (4.7-12.5); NEUT # 8.26 (1.56-6.13); NEUT % 94.8 % (34.0-71.1); RED CELL DISTRIBUTION WIDTH 15.9 % (11.6-14.4)
[2024-11-23 06:45] LABS: ALT/SGPT 16.0 U/L (12-78); AST/SGOT 24.0 U/L (15-37); BILIRUBIN TOTAL 0.55 mg/dL (0.3-1.2); BUN CREA RATIO 10.0 (7.0-25.0); CREATININE SERUM 2.68 mg/dL (0.55-1.02); GFR 17.73; GLOBULINA 3.1 G/DL (2.4-3.5); GLUCOSE FASTING 120.0 mg/dL (65-100); OSMOLALITY SERUM 274.0 MOSM/KG (275-295)
[2024-11-23 07:06] VITALS: BP 145/64; O2SAT 100
[2024-11-23] MEDS ORDERED: IPRATROPIUM BROMIDE 0.5 MG/2.5 ML AMPUL.NEB IH SCH (12:00)
[2024-11-23] MEDS ORDERED: LEVALBUTEROL HCL 0.63 MG/3 ML SOLUTION IH SCH (12:00)
[2024-11-23] MEDS ORDERED: METHYLPREDNISOLONE SOD SUCC 40 MG VIAL IV SCH (12:00)
[2024-11-23 12:38] VITALS: BP 115/79; O2SAT 100
[2024-11-23 14:58] VITALS: BP 115/79; O2SAT 99
[2024-11-23 19:59] VITALS: BP 152/51; O2SAT 100
[2024-11-23] MEDS ORDERED: MEROPENEM 500 MG/VIAL VIAL IV SCH (21:00)
[2024-11-23 23:18] VITALS: BP 166/70
[2024-11-24 04:00] VITALS: BP 173/95; O2SAT 98
[2024-11-24 07:17] VITALS: BP 167/84; O2SAT 97
[2024-11-24 07:20] LABS: BASO % 0.2 % (0.1-1.2); EOS # 0.00 (0.04-0.54); EOS % 0.0 % (0.7-7.0); LYMPH # 0.14 (1.18-3.74); LYMPH % 1.4 % (19.3-53.1); MEAN PLATELET VOLUME 11.40 fl (9.4-12.4); MONO # 0.16 (0.24-0.82); MONO % 1.6 % (4.7-12.5); NEUT # 9.50 (1.56-6.13); NEUT % 94.8 % (34.0-71.1); RED CELL DISTRIBUTION WIDTH 16.3 % (11.6-14.4)
[2024-11-24 08:11] LABS: ALT/SGPT 17.0 U/L (12-78); AST/SGOT 24.0 U/L (15-37); BILIRUBIN TOTAL 0.43 mg/dL (0.3-1.2); BUN CREA RATIO 11.0 (7.0-25.0); CREATININE SERUM 3.38 mg/dL (0.55-1.02); GFR 13.56; GLOBULINA 3.2 G/DL (2.4-3.5); GLUCOSE FASTING 142.0 mg/dL (65-100); OSMOLALITY SERUM 278.0 MOSM/KG (275-295)
[2024-11-24 12:00] VITALS: BP 122/58; O2SAT 100
[2024-11-24] MEDS ORDERED: HEPARIN SODIUM,PORCINE 5,000 UNITS/ML VIAL ONE (12:33)
[2024-11-24 14:38] LABS: ABG PH 7.314 (7.35-7.45); ABG PO2 68.8 mmHg (80-100); BICARBONATE 22.9 mmol/l (23-25); o2 100 %
[2024-11-24 15:02] VITALS: BP 142/89; O2SAT 95
[2024-11-24] MEDS ORDERED: SODIUM BICARBONATE 50MEQ/50ML VIAL IV ONE (16:21)
[2024-11-24 17:00] LABS: ABG PH 7.290 (7.35-7.45); ABG PO2 68.5 mmHg (80-100)
[2024-11-24 17:01] LABS: BICARBONATE 22.6 mmol/l (23-25)
[2024-11-24 17:03] LABS: o2 50 %
[2024-11-24 20:00] VITALS: BP 149/65; O2SAT 100
[2024-11-24] MEDS ORDERED: FLUCONAZOLE IN NACL,ISO-OSM 200 MG/100 ML PIGGYBAG IV ONE ×2 (20:33→20:45)
[2024-11-24] MEDS ORDERED: LINEZOLID IN DEXTROSE 5% 600 MG/300 ML PIGGYBAG IV ONE (20:34)
[2024-11-24] MEDS ORDERED: LINEZOLID IN DEXTROSE 5% 300 ML IV SCH (21:00)
[2024-11-24 23:30] VITALS: BP 131/88; O2SAT 100
[2024-11-25] VITALS (8 sets, daily range): BP systolic 94–179; BP diastolic 64–82; O2SAT 100
[2024-11-25 07:52] LABS: BASO % 0.2 % (0.1-1.2); EOS # 0.00 (0.04-0.54); EOS % 0.0 % (0.7-7.0); LYMPH # 0.14 (1.18-3.74); LYMPH % 1.3 % (19.3-53.1); MEAN PLATELET VOLUME 12.00 fl (9.4-12.4); MONO # 0.11 (0.24-0.82); MONO % 1.0 % (4.7-12.5); NEUT # 10.74 (1.56-6.13); NEUT % 96.1 % (34.0-71.1); RED CELL DISTRIBUTION WIDTH 16.1 % (11.6-14.4)
[2024-11-25 08:35] LABS: ABG PH 7.293 (7.35-7.45); ABG PO2 153.7 mmHg (80-100); BICARBONATE 24.5 mmol/l (23-25); o2 100 %
[2024-11-25 08:39] LABS: ALT/SGPT 15.0 U/L (12-78); AST/SGOT 25.0 U/L (15-37); BILIRUBIN TOTAL 0.44 mg/dL (0.3-1.2); BUN CREA RATIO 10.0 (7.0-25.0); CREATININE SERUM 2.63 mg/dL (0.55-1.02); GFR 18.12; GLOBULINA 3.2 G/DL (2.4-3.5); GLUCOSE FASTING 146.0 mg/dL (65-100); OSMOLALITY SERUM 276.0 MOSM/KG (275-295)
[2024-11-25 08:41] LABS: LDH 527 U/L (84-246); PHOSPHOKINASE CREATININE 23 U/L (26-192)
[2024-11-25 08:44] LABS: CKMB < 1.0 NG/ML (0.5-3.6)
[2024-11-25] MEDS ORDERED: PANTOPRAZOLE SODIUM 40 MG/VIAL VIAL IV SCH (09:00)
[2024-11-25] MEDS ORDERED: FLUCONAZOLE IN NACL,ISO-OSM 50 ML IV SCH (17:00)
[2024-11-25] MEDS ORDERED: FLUCONAZOLE IN NACL,ISO-OSM 2 MG/ML ML IV SCH (17:00)
[2024-11-25] MEDS ORDERED: CLEVIDIPINE BUTYRATE 100 ML IV SCH (20:15)
[2024-11-25 22:29] LABS: COVID-19 AG POSITIVE (NEGATIVE)
[2024-11-25] MEDS ORDERED: REMDESIVIR 100 MG VIAL IV SCH (23:11)
[2024-11-26] VITALS (19 sets, daily range): BP systolic 125–170; BP diastolic 58–90; O2SAT 70–100
[2024-11-26 07:58] LABS: BASO % 0.3 % (0.1-1.2); EOS # 0.00 (0.04-0.54); EOS % 0.0 % (0.7-7.0); LYMPH # 0.06 (1.18-3.74); LYMPH % 0.3 % (19.3-53.1); MEAN PLATELET VOLUME 12.00 fl (9.4-12.4); MONO # 0.10 (0.24-0.82); MONO % 0.5 % (4.7-12.5); NEUT # 19.76 (1.56-6.13); NEUT % 97.4 % (34.0-71.1); RED CELL DISTRIBUTION WIDTH 16.6 % (11.6-14.4)
[2024-11-26 08:10] LABS: ALT/SGPT 15.0 U/L (12-78); AST/SGOT 31.0 U/L (15-37); BILIRUBIN TOTAL 0.72 mg/dL (0.3-1.2); GLOBULINA 3.3 G/DL (2.4-3.5); GLUCOSE FASTING 183.0 mg/dL (65-100); OSMOLALITY SERUM 276.0 MOSM/KG (275-295)
[2024-11-26 08:34] LABS: BUN CREA RATIO 11.0 (7.0-25.0); CREATININE SERUM 3.06 mg/dL (0.55-1.02); GFR 15.21
[2024-11-26 08:47] LABS: BAND MAN 4.0 %; LYMPHOCYTE MAN 1.0 %; NEUTROPHILS MAN 95.0 %
[2024-11-26] MEDS ORDERED: DEXAMETHASONE SODIUM PHOSPHATE 4 MG/ML VIAL IV SCH (09:00)
[2024-11-26 10:15] LABS: ABG PO2 63.5 mmHg (80-100); BICARBONATE 27.3 mmol/l (23-25)
[2024-11-26] MEDS ORDERED: PROPOFOL 10,000 MCG/ML VIAL IV ONE (10:19)
[2024-11-26] MEDS ORDERED: PROPOFOL 10,000 MCG/ML VIAL ONE (10:19)
[2024-11-26] MEDS ORDERED: PROPOFOL 100 ML IV SCH (10:30)
[2024-11-26] MEDS ORDERED: PROPOFOL 10,000 MCG/ML VIAL IV PUSH STA (10:30)
[2024-11-26 11:21] LABS: ABG PH 7.125 (7.35-7.45)
[2024-11-26 11:23] LABS: o2 100 %
[2024-11-26 13:09] LABS: ABG PO2 133.0 mmHg (80-100); BICARBONATE 26.2 mmol/l (23-25)
[2024-11-26] MEDS ORDERED: REMDESIVIR 100 MG VIAL IV NR (13:30)
[2024-11-26 14:11] LABS: ABG PH 7.209 (7.35-7.45)
[2024-11-26 14:12] LABS: o2 100 %
[2024-11-26] MEDS ORDERED: CHLORHEXIDINE GLUCONATE 15ML BRUSH KIT MM SCH (17:00)
[2024-11-26] MEDS ORDERED: POLYVINYL ALCOHOL 15 ML DROPS OP SCH (17:00)
[2024-11-26] MEDS ORDERED: AMLODIPINE BESYLATE 10 MG TABLET PO SCH (17:12)
[2024-11-27] VITALS (15 sets, daily range): BP systolic 84–169; BP diastolic 55–96; O2SAT 95–100
[2024-11-27 06:54] LABS: BASO % 0.2 % (0.1-1.2); EOS # 0.00 (0.04-0.54); EOS % 0.0 % (0.7-7.0); LYMPH # 0.13 (1.18-3.74); LYMPH % 0.6 % (19.3-53.1); MEAN PLATELET VOLUME 10.50 fl (9.4-12.4); MONO # 0.06 (0.24-0.82); MONO % 0.3 % (4.7-12.5); NEUT # 22.54 (1.56-6.13); NEUT % 96.8 % (34.0-71.1); RED CELL DISTRIBUTION WIDTH 15.9 % (11.6-14.4)
[2024-11-27 07:20] LABS: ALT/SGPT 21.0 U/L (12-78); AST/SGOT 41.0 U/L (15-37); BILIRUBIN TOTAL 0.57 mg/dL (0.3-1.2); BUN CREA RATIO 11.0 (7.0-25.0); CREATININE SERUM 3.49 mg/dL (0.55-1.02); GFR 13.07; GLOBULINA 2.9 G/DL (2.4-3.5); GLUCOSE FASTING 126.0 mg/dL (65-100); OSMOLALITY SERUM 279.0 MOSM/KG (275-295)
[2024-11-27 08:07] LABS: BAND MAN 5.0 %; LYMPHOCYTE MAN 1.0 %; MONOCYTE MAN 1.0 %; NEUTROPHILS MAN 93.0 %
[2024-11-27] MEDS ORDERED: HEPARIN SODIUM,PORCINE 5,000 UNITS/ML VIAL ONE (08:57)
[2024-11-27] MEDS ORDERED: POTASSIUM CHLORIDE IN WATER 100 ML IV NR (11:15)
[2024-11-27] MEDS ORDERED: REMDESIVIR 100 MG VIAL IV SCH (12:00)
[2024-11-27] MEDS ORDERED: HEPARIN SODIUM,PORCINE 5,000 UNITS/ML VIAL IJ ONE (12:00)
[2024-11-27 12:43] LABS: ABG PH 7.327 (7.35-7.45); ABG PO2 211.5 mmHg (80-100)
[2024-11-27 12:44] LABS: BICARBONATE 27.2 mmol/l (23-25)
[2024-11-27 12:46] LABS: o2 100 %
[2024-11-27 15:07] LABS: ABG PH 7.399 (7.35-7.45)
[2024-11-27 15:08] LABS: ABG PO2 57.4 mmHg (80-100); BICARBONATE 24.8 mmol/l (23-25)
[2024-11-27 15:10] LABS: o2 50 %
[2024-11-28] VITALS (13 sets, daily range): BP systolic 126–169; BP diastolic 61–78; O2SAT 83–100
[2024-11-28 06:20] LABS: BASO % 0.2 % (0.1-1.2); EOS # 0.02 (0.04-0.54); EOS % 0.1 % (0.7-7.0); LYMPH # 0.39 (1.18-3.74); LYMPH % 1.5 % (19.3-53.1); MONO # 0.06 (0.24-0.82); MONO % 0.2 % (4.7-12.5); NEUT # 25.03 (1.56-6.13); NEUT % 95.6 % (34.0-71.1); RED CELL DISTRIBUTION WIDTH 15.6 % (11.6-14.4)
[2024-11-28 06:53] LABS: ALT/SGPT 16.0 U/L (12-78); AST/SGOT 38.0 U/L (15-37); BILIRUBIN TOTAL 0.6 mg/dL (0.3-1.2); BUN CREA RATIO 10.0 (7.0-25.0); CREATININE SERUM 2.63 mg/dL (0.55-1.02); GFR 18.12; GLOBULINA 2.9 G/DL (2.4-3.5); GLUCOSE FASTING 105.0 mg/dL (65-100); LDH 655.0 U/L (84-246); OSMOLALITY SERUM 272.0 MOSM/KG (275-295)
[2024-11-28 07:20] LABS: BAND MAN 1.0 %; LYMPHOCYTE MAN 1.0 %; MONOCYTE MAN 1.0 %; NEUTROPHILS MAN 97.0 %
[2024-11-28 11:23] LABS: ABG PH 7.422 (7.35-7.45); ABG PO2 65.8 mmHg (80-100)
[2024-11-28 11:24] LABS: BICARBONATE 24.1 mmol/l (23-25); o2 50 %
[2024-11-28] MEDS ORDERED: CEFTAZIDIME/AVIBACTAM 0.94GM/100ML NSS PB IV SCH (17:00)
[2024-11-29] VITALS (14 sets, daily range): BP systolic 112–163; BP diastolic 55–79; O2SAT 95–98
[2024-11-29] MEDS ORDERED: HEPARIN SODIUM,PORCINE 5,000 UNITS/ML VIAL IV NR (12:00)
[2024-11-29 12:27] LABS: ABG PH 7.443 (7.35-7.45); ABG PO2 78.3 mmHg (80-100)
[2024-11-29 12:28] LABS: BICARBONATE 26.1 mmol/l (23-25)
[2024-11-29 12:31] LABS: o2 50 %
[2024-11-29 17:08] LABS: quan ag 0.05 IU/mL (.); quan mito 0.06 IU/mL (.); quant nil 0.05 IU/mL (.)
[2024-11-30] VITALS (8 sets, daily range): BP systolic 116–176; BP diastolic 63–76; O2SAT 97–100
[2024-11-30 06:48] LABS: BASO % 0.1 % (0.1-1.2); EOS # 0.01 (0.04-0.54); EOS % 0.1 % (0.7-7.0); LYMPH # 0.37 (1.18-3.74); LYMPH % 2.7 % (19.3-53.1); MONO # 0.11 (0.24-0.82); MONO % 0.8 % (4.7-12.5); NEUT # 13.23 (1.56-6.13); NEUT % 95.1 % (34.0-71.1); RED CELL DISTRIBUTION WIDTH 15.6 % (11.6-14.4)
[2024-11-30 07:47] LABS: ALT/SGPT 12.0 U/L (12-78); AST/SGOT 26.0 U/L (15-37); BILIRUBIN TOTAL 0.63 mg/dL (0.3-1.2); BUN CREA RATIO 15.0 (7.0-25.0); CREATININE SERUM 2.42 mg/dL (0.55-1.02); GFR 19.94; GLOBULINA 2.9 G/DL (2.4-3.5); GLUCOSE FASTING 106.0 mg/dL (65-100); OSMOLALITY SERUM 275.0 MOSM/KG (275-295)
[2024-11-30 08:57] LABS: ABG PH 7.419 (7.35-7.45); ABG PO2 99.6 mmHg (80-100); BICARBONATE 24.3 mmol/l (23-25)
[2024-11-30 10:59] LABS: o2 50 %
[2024-12-01 04:00] VITALS: BP 162/74; O2SAT 100
[2024-12-01 07:37] VITALS: BP 171/73; O2SAT 99
[2024-12-01] MEDS ORDERED: ALBUMIN HUMAN 100 ML VIAL IV SCH (09:00)
[2024-12-01] MEDS ORDERED: ALBUMIN HUMAN-25 0.25GM/ML (50ML) VIAL IV SCH (09:00)
[2024-12-01] MEDS ORDERED: HEPARIN SODIUM,PORCINE 5,000 UNITS/ML VIAL IV ONE (11:15)
[2024-12-01 12:12] VITALS: BP 171/71; O2SAT 97
[2024-12-01 12:13] LABS: BASO % 0.2 % (0.1-1.2); EOS # 0.08 (0.04-0.54); EOS % 0.6 % (0.7-7.0); LYMPH # 0.42 (1.18-3.74); LYMPH % 3.2 % (19.3-53.1); MONO # 0.17 (0.24-0.82); MONO % 1.3 % (4.7-12.5); NEUT # 12.35 (1.56-6.13); NEUT % 93.5 % (34.0-71.1); RED CELL DISTRIBUTION WIDTH 15.4 % (11.6-14.4)
[2024-12-01 12:47] LABS: MANUAL PLATELET COUNT 25
[2024-12-01 12:49] LABS: ABG PH 7.427 (7.35-7.45); ABG PO2 102.3 mmHg (80-100); BICARBONATE 25.1 mmol/l (23-25)
[2024-12-01 12:50] LABS: o2 50 %
[2024-12-01] MEDS ORDERED: POTASSIUM CHLORIDE IN WATER 40 MEQ/100 ML PIGGYBAG IV SCH (13:00)
[2024-12-01 13:01] LABS: INR 1.26
[2024-12-01 13:02] LABS: D DIMER > 35.20 MG/L
[2024-12-01 13:12] LABS: ALT/SGPT 11.0 U/L (12-78); AST/SGOT 22.0 U/L (15-37); BILIRUBIN TOTAL 1.23 mg/dL (0.3-1.2); BUN CREA RATIO 14.0 (7.0-25.0); CREATININE SERUM 1.66 mg/dL (0.55-1.02); GFR 30.81; GLOBULINA 3.1 G/DL (2.4-3.5); GLUCOSE FASTING 95.0 mg/dL (65-100); LDH 590.0 U/L (84-246); OSMOLALITY SERUM 275.0 MOSM/KG (275-295)
[2024-12-01] MEDS ORDERED: POTASSIUM PHOS,M-BASIC-D-BASIC 15 MM in 0.9 % SODIUM CHLORIDE 250 ML IV NR (14:15)
[2024-12-01 15:56] VITALS: BP 141/73; O2SAT 98
[2024-12-01] MEDS ORDERED: APIXABAN 5 MG TABLET PO SCH (17:00)
[2024-12-01 19:56] LABS: ABG PH 7.395 (7.35-7.45); ABG PO2 87.9 mmHg (80-100); BICARBONATE 25.3 mmol/l (23-25)
[2024-12-01 19:58] LABS: o2 50 %
[2024-12-01 20:00] VITALS: BP 163/75; O2SAT 100
[2024-12-01 20:19] LABS: BASO % 0.2 % (0.1-1.2); EOS # 0.00 (0.04-0.54); EOS % 0.0 % (0.7-7.0); LYMPH # 0.13 (1.18-3.74); LYMPH % 0.9 % (19.3-53.1); MEAN PLATELET VOLUME 8.70 fl (9.4-12.4); MONO # 0.14 (0.24-0.82); MONO % 1.0 % (4.7-12.5); NEUT # 14.00 (1.56-6.13); NEUT % 96.4 % (34.0-71.1); RED CELL DISTRIBUTION WIDTH 15.2 % (11.6-14.4)
[2024-12-01 23:31] VITALS: BP 188/82; O2SAT 100
[2024-12-02] VITALS (12 sets, daily range): BP systolic 106–180; BP diastolic 50–82; O2SAT 95–100
[2024-12-02 11:33] LABS: ABG PH 7.375 (7.35-7.45); ABG PO2 76.4 mmHg (80-100); BICARBONATE 25.4 mmol/l (23-25)
[2024-12-02 11:33] LABS: URINE APPEARANCE Turbid; URINE BILIRRUBIN Negative (NEGATIVE); URINE BLOOD Small; URINE COLOR Dark Yellow; URINE GLUCOSE Negative (NEGATIVE); URINE KETONE Trace (NEGATIVE); URINE LEUKOCYTE Large; URINE NITRATE Negative; URINE UROBILINOGEN 0.2 E.U./dl
[2024-12-02 11:34] LABS: o2 50 %
[2024-12-02 11:37] LABS: URINE BACTERIA 5133.5 uL (0.0-1933); URINE CAST 9.97 uL (0.0-1.40); URINE EPITHELIAL CELLS 49.2 uL (0.0-38.8); URINE RBC 161.4 uL (0.0-20.8); URINE WBC 2392.1 uL (0.0-23.2)
[2024-12-02 11:57] LABS: BASO % 0.3 % (0.1-1.2); EOS # 0.06 (0.04-0.54); EOS % 0.5 % (0.7-7.0); LYMPH # 0.38 (1.18-3.74); LYMPH % 3.0 % (19.3-53.1); MONO # 0.11 (0.24-0.82); MONO % 0.9 % (4.7-12.5); NEUT # 11.88 (1.56-6.13); NEUT % 94.3 % (34.0-71.1); RED CELL DISTRIBUTION WIDTH 15.8 % (11.6-14.4)
[2024-12-02 12:14] LABS: URINE PROTEIN 300 (NEGATIVE)
[2024-12-02 12:17] LABS: TYPE CELLS SQUAMOUS; URINE YEAST MANY /hpf
[2024-12-02 12:22] LABS: ALT/SGPT 8.0 U/L (12-78); AST/SGOT 20.0 U/L (15-37); BILIRUBIN TOTAL 1.2 mg/dL (0.3-1.2); BUN CREA RATIO 11.0 (7.0-25.0); CREATININE SERUM 1.44 mg/dL (0.55-1.02); GFR 36.31; GLOBULINA 3.2 G/DL (2.4-3.5); GLUCOSE FASTING 94.0 mg/dL (65-100); OSMOLALITY SERUM 273.0 MOSM/KG (275-295)
[2024-12-02] MEDS ORDERED: POTASSIUM PHOS,M-BASIC-D-BASIC 3 MM/ML VIAL IV ONE (14:00)
[2024-12-03 04:00] VITALS: BP 157/73; O2SAT 99
[2024-12-03 07:16] VITALS: BP 142/62; O2SAT 98
[2024-12-03 11:22] LABS: ABG PH 7.390 (7.35-7.45); ABG PO2 83.5 mmHg (80-100); BICARBONATE 25.8 mmol/l (23-25)
[2024-12-03 11:23] LABS: o2 96 %
[2024-12-03 12:00] LABS: ABG PH 7.360 (7.35-7.45); ABG PO2 63.4 mmHg (80-100); BICARBONATE 24.9 mmol/l (23-25)
[2024-12-03 12:17] VITALS: BP 169/69; O2SAT 94
[2024-12-03 12:36] LABS: o2 50 %
[2024-12-03 14:15] LABS: BASO % 0.1 % (0.1-1.2); EOS # 0.01 (0.04-0.54); EOS % 0.1 % (0.7-7.0); LYMPH # 0.10 (1.18-3.74); LYMPH % 0.7 % (19.3-53.1); MONO # 0.10 (0.24-0.82); MONO % 0.7 % (4.7-12.5); NEUT # 13.08 (1.56-6.13); NEUT % 97.3 % (34.0-71.1); RED CELL DISTRIBUTION WIDTH 16.0 % (11.6-14.4)
[2024-12-03 14:30] LABS: MEAN PLATELET VOLUME 11.40 fl (9.4-12.4)
[2024-12-03 14:40] LABS: LYMPHOCYTE MAN 1.0 %; NEUTROPHILS MAN 97.0 %
[2024-12-03 15:29] VITALS: BP 178/74; O2SAT 98
[2024-12-03 20:00] VITALS: BP 163/69; O2SAT 100
[2024-12-03 23:28] VITALS: BP 169/71; O2SAT 100
[2024-12-04 04:00] VITALS: BP 164/69; O2SAT 97
[2024-12-04 07:05] VITALS: BP 178/75
[2024-12-04 07:23] LABS: BASO % 0.3 % (0.1-1.2); EOS # 0.06 (0.04-0.54); EOS % 0.5 % (0.7-7.0); LYMPH # 0.26 (1.18-3.74); LYMPH % 2.2 % (19.3-53.1); MEAN PLATELET VOLUME 12.20 fl (9.4-12.4); MONO # 0.08 (0.24-0.82); MONO % 0.7 % (4.7-12.5); NEUT # 11.41 (1.56-6.13); NEUT % 95.4 % (34.0-71.1); RED CELL DISTRIBUTION WIDTH 16.0 % (11.6-14.4)
[2024-12-04 11:03] LABS: ABG PH 7.413 (7.35-7.45); ABG PO2 89.3 mmHg (80-100); BICARBONATE 26.8 mmol/l (23-25)
[2024-12-04 11:04] LABS: o2 50 %
[2024-12-04 11:55] LABS: ABG PH 7.406 (7.35-7.45); ABG PO2 79.0 mmHg (80-100); BICARBONATE 26.8 mmol/l (23-25)
[2024-12-04 11:56] LABS: o2 50 %
[2024-12-04 11:57] VITALS: BP 164/65; O2SAT 95
[2024-12-04 12:23] LABS: INR 2.02
[2024-12-04 12:25] LABS: BUN CREA RATIO 13.0 (7.0-25.0); CREATININE SERUM 1.58 mg/dL (0.55-1.02); GFR 32.62; GLUCOSE FASTING 84.0 mg/dL (65-100)
[2024-12-04 12:26] LABS: BILIRUBIN TOTAL 1.23 mg/dL (0.3-1.2); GLOBULINA 3.5 G/DL (2.4-3.5); OSMOLALITY SERUM 276.0 MOSM/KG (275-295)
[2024-12-04 12:27] LABS: ALT/SGPT 8.0 U/L (12-78); AST/SGOT 20.0 U/L (15-37)
[2024-12-04 15:04] VITALS: BP 159/73; O2SAT 99
[2024-12-04 15:06] LABS: ABG PH 7.409 (7.35-7.45); ABG PO2 92.0 mmHg (80-100); BICARBONATE 26.2 mmol/l (23-25)
[2024-12-04 15:07] LABS: o2 50 %
[2024-12-04] MEDS ORDERED: POTASSIUM CHLORIDE 20MEQ/100ML H2O PB IV STA (18:24)
[2024-12-04] MEDS ORDERED: POTASSIUM PHOS,M-BASIC-D-BASIC 15 MM in 0.9 % SODIUM CHLORIDE 250 ML IV ONE (18:30)
[2024-12-04 20:00] VITALS: BP 174/76; O2SAT 99
[2024-12-04 23:39] VITALS: BP 160/74; O2SAT 99
[2024-12-05 04:03] VITALS: BP 163/72; O2SAT 99
[2024-12-05 06:09] LABS: ABG PH 7.341 (7.35-7.45); ABG PO2 81.7 mmHg (80-100); BICARBONATE 25.0 mmol/l (23-25)
[2024-12-05 06:26] LABS: o2 50 %
[2024-12-05 06:58] LABS: BASO % 0.2 % (0.1-1.2); EOS # 0.04 (0.04-0.54); EOS % 0.3 % (0.7-7.0); LYMPH # 0.33 (1.18-3.74); LYMPH % 2.3 % (19.3-53.1); MONO # 0.09 (0.24-0.82); MONO % 0.6 % (4.7-12.5); NEUT # 13.94 (1.56-6.13); NEUT % 96.0 % (34.0-71.1); RED CELL DISTRIBUTION WIDTH 16.7 % (11.6-14.4)
[2024-12-05 07:06] VITALS: BP 152/69; O2SAT 98
[2024-12-05 08:02] LABS: BUN CREA RATIO 15.0 (7.0-25.0); CREATININE SERUM 2.27 mg/dL (0.55-1.02); GFR 21.47; GLUCOSE FASTING 88.0 mg/dL (65-100); OSMOLALITY SERUM 281.0 MOSM/KG (275-295)
[2024-12-05 08:03] LABS: ALT/SGPT 7.0 U/L (12-78); AST/SGOT 15.0 U/L (15-37); BILIRUBIN TOTAL 0.7 mg/dL (0.3-1.2); GLOBULINA 3.5 G/DL (2.4-3.5)
[2024-12-05 08:06] LABS: BAND MAN 2.0 %; EOSINOPHIL MAN 1.0 %; LYMPHOCYTE MAN 7.0 %; MONOCYTE MAN 1.0 %; NEUTROPHILS MAN 89.0 %
[2024-12-05] MEDS ORDERED: hydrALAZINE HCL 20 MG VIAL IV ONE (08:30)
[2024-12-05] MEDS ORDERED: CEFTAZIDIME/AVIBACTAM 1.25GM/100ML NSS PB IV SCH ×2 (09:00→13:00)
[2024-12-05 12:00] VITALS: BP 162/68; O2SAT 96
[2024-12-05 15:33] VITALS: BP 150/80; BP 162/68; O2SAT 95
[2024-12-05] MEDS ORDERED: AA 4.25%/CAL/LYTES/DEXT 5% 1,000 ML PERIFERAL SCH (17:00)
[2024-12-05 17:37] LABS: CHOL HDL RATIO 3.3 (0-5.0); HDL 34.0 mg/dl (40-60); LDL 47.0 mg/dl (0-130); VLDL 30.0 (0-39)
[2024-12-05 20:00] VITALS: BP 153/71; O2SAT 96
[2024-12-05 23:40] VITALS: BP 155/71; O2SAT 96
[2024-12-06 04:00] VITALS: BP 161/71; O2SAT 97
[2024-12-06 07:19] LABS: BASO % 0.1 % (0.1-1.2); EOS # 0.03 (0.04-0.54); EOS % 0.2 % (0.7-7.0); LYMPH # 0.27 (1.18-3.74); LYMPH % 1.7 % (19.3-53.1); MONO # 0.08 (0.24-0.82); MONO % 0.5 % (4.7-12.5); NEUT # 15.06 (1.56-6.13); NEUT % 96.8 % (34.0-71.1); RED CELL DISTRIBUTION WIDTH 16.9 % (11.6-14.4)
[2024-12-06 07:21] VITALS: BP 115/66; O2SAT 100
[2024-12-06 08:06] LABS: ALT/SGPT 7.0 U/L (12-78); AST/SGOT 10.0 U/L (15-37); BILIRUBIN TOTAL 0.56 mg/dL (0.3-1.2); BUN CREA RATIO 18.0 (7.0-25.0); CREATININE SERUM 2.77 mg/dL (0.55-1.02); GFR 17.07; GLOBULINA 3.7 G/DL (2.4-3.5); GLUCOSE FASTING 131.0 mg/dL (65-100); OSMOLALITY SERUM 293.0 MOSM/KG (275-295)
[2024-12-06 09:58] LABS: ABG PH 7.362 (7.35-7.45); ABG PO2 68.1 mmHg (80-100); BICARBONATE 24.5 mmol/l (23-25)
[2024-12-06 13:32] LABS: o2 40 %
[2024-12-06 15:37] VITALS: BP 166/82; O2SAT 100
[2024-12-06] MEDS ORDERED: APIXABAN 5 MG TABLET PO SCH (17:00)
[2024-12-06 20:00] VITALS: BP 166/73; O2SAT 100
[2024-12-06] MEDS ORDERED: VANCOMYCIN HCL 1,000 MG VIAL IV NR (21:00)
[2024-12-06 23:07] VITALS: BP 172/84; O2SAT 99
[2024-12-07 04:02] VITALS: BP 167/70; O2SAT 100
[2024-12-07 06:52] LABS: BASO % 0.1 % (0.1-1.2); EOS # 0.01 (0.04-0.54); EOS % 0.1 % (0.7-7.0); LYMPH # 0.18 (1.18-3.74); LYMPH % 1.2 % (19.3-53.1); MONO # 0.11 (0.24-0.82); MONO % 0.7 % (4.7-12.5); NEUT # 15.09 (1.56-6.13); NEUT % 97.3 % (34.0-71.1); RED CELL DISTRIBUTION WIDTH 16.8 % (11.6-14.4)
[2024-12-07 07:14] VITALS: BP 156/72; O2SAT 100
[2024-12-07 07:24] LABS: ALT/SGPT 6.0 U/L (12-78); AST/SGOT 13.0 U/L (15-37); BILIRUBIN TOTAL 0.67 mg/dL (0.3-1.2); BUN CREA RATIO 15.0 (7.0-25.0); CREATININE SERUM 2.5 mg/dL (0.55-1.02); GFR 19.21; GLOBULINA 3.7 G/DL (2.4-3.5); GLUCOSE FASTING 161.0 mg/dL (65-100); OSMOLALITY SERUM 284.0 MOSM/KG (275-295)
[2024-12-07 10:39] LABS: ABG PH 7.319 (7.35-7.45); ABG PO2 81.4 mmHg (80-100)
[2024-12-07 10:40] LABS: BICARBONATE 26.0 mmol/l (23-25)
[2024-12-07 10:42] LABS: o2 40 %
[2024-12-07 12:00] VITALS: BP 148/67; O2SAT 99
[2024-12-07] MEDS ORDERED: CEFTAZIDIME/AVIBACTAM 0.94GM/100ML NSS PB IV SCH (13:00)
[2024-12-07] MEDS ORDERED: NYSTATIN 30 GM,ZINC OXIDE 30 GM,SILVER SULFADIAZINE 50 GM TOP SCH (13:00)
[2024-12-07 15:07] VITALS: BP 143/66; O2SAT 97
[2024-12-07 20:00] VITALS: BP 156/67; O2SAT 98
[2024-12-07 23:13] VITALS: BP 158/71; O2SAT 96
[2024-12-08 05:00] VITALS: BP 105/62; O2SAT 100
[2024-12-08 07:23] VITALS: BP 117/62; O2SAT 97
[2024-12-08 08:34] LABS: ABG PH 7.338 (7.35-7.45); BICARBONATE 26.4 mmol/l (23-25)
[2024-12-08] MEDS ORDERED: VANCOMYCIN HCL 500 MG VIAL IV NR (09:00)
[2024-12-08 09:03] LABS: BASO % 0.1 % (0.1-1.2); EOS # 0.08 (0.04-0.54); EOS % 0.7 % (0.7-7.0); LYMPH # 0.12 (1.18-3.74); LYMPH % 1.0 % (19.3-53.1); MONO # 0.09 (0.24-0.82); MONO % 0.7 % (4.7-12.5); NEUT # 11.75 (1.56-6.13); NEUT % 96.7 % (34.0-71.1); RED CELL DISTRIBUTION WIDTH 17.2 % (11.6-14.4)
[2024-12-08 09:54] LABS: ALT/SGPT 10.0 U/L (12-78); AST/SGOT 11.0 U/L (15-37); BILIRUBIN TOTAL 0.7 mg/dL (0.3-1.2); BUN CREA RATIO 17.0 (7.0-25.0); CREATININE SERUM 1.32 mg/dL (0.55-1.02); GFR 40.14; GLOBULINA 3.2 G/DL (2.4-3.5); OSMOLALITY SERUM 277.0 MOSM/KG (275-295)
[2024-12-08 10:00] LABS: GLUCOSE FASTING 297.0 mg/dL (65-100)
[2024-12-08 11:03] LABS: ABG PO2 59.0 mmHg (80-100); o2 46 %
[2024-12-08 12:00] VITALS: BP 124/57; O2SAT 90
[2024-12-08 12:02] LABS: ABG PH 7.286 (7.35-7.45); BICARBONATE 27.7 mmol/l (23-25)
[2024-12-08 12:13] LABS: ABG PO2 51.7 mmHg (80-100); o2 28 %
[2024-12-08 16:00] VITALS: BP 128/69; O2SAT 98
[2024-12-08 20:36] VITALS: BP 119/61; O2SAT 97
[2024-12-08 23:30] VITALS: BP 124/64; O2SAT 92
[2024-12-09 04:00] VITALS: BP 121/57; O2SAT 94
[2024-12-09 07:18] LABS: BASO % 0.1 % (0.1-1.2); EOS # 0.09 (0.04-0.54); EOS % 0.8 % (0.7-7.0); LYMPH # 0.19 (1.18-3.74); LYMPH % 1.7 % (19.3-53.1); MONO # 0.06 (0.24-0.82); MONO % 0.5 % (4.7-12.5); NEUT # 10.55 (1.56-6.13); NEUT % 96.2 % (34.0-71.1); RED CELL DISTRIBUTION WIDTH 17.3 % (11.6-14.4)
[2024-12-09 07:19] VITALS: BP 121/62; O2SAT 98
[2024-12-09 07:48] LABS: ALT/SGPT 8.0 U/L (12-78); AST/SGOT 11.0 U/L (15-37); BILIRUBIN TOTAL 0.5 mg/dL (0.3-1.2); BUN CREA RATIO 19.0 (7.0-25.0); CREATININE SERUM 1.94 mg/dL (0.55-1.02); GFR 25.74; GLOBULINA 3.4 G/DL (2.4-3.5); GLUCOSE FASTING 153.0 mg/dL (65-100); OSMOLALITY SERUM 284.0 MOSM/KG (275-295)
[2024-12-09 10:05] LABS: ABG PH 7.298 (7.35-7.45)
[2024-12-09 10:06] LABS: ABG PO2 84.8 mmHg (80-100); BICARBONATE 27.9 mmol/l (23-25)
[2024-12-09 10:12] LABS: o2 40 %
[2024-12-09] MEDS ORDERED: POTASSIUM CHLORIDE 20MEQ/100ML H2O PB IV NR (11:45)
[2024-12-09 11:49] LABS: ABG PH 7.321 (7.35-7.45); ABG PO2 95.6 mmHg (80-100); BICARBONATE 26.8 mmol/l (23-25); o2 40 %
[2024-12-09 12:00] VITALS: BP 126/58; O2SAT 96
[2024-12-09 15:08] VITALS: BP 123/55; O2SAT 98
[2024-12-09 20:04] VITALS: BP 114/46; O2SAT 96
[2024-12-09 23:38] VITALS: BP 127/53; O2SAT 98
[2024-12-10] VITALS (8 sets, daily range): BP systolic 104–161; BP diastolic 48–95; O2SAT 100
[2024-12-10 08:02] LABS: BASO % 0.3 % (0.1-1.2); EOS # 0.01 (0.04-0.54); EOS % 0.1 % (0.7-7.0); LYMPH # 0.21 (1.18-3.74); LYMPH % 2.3 % (19.3-53.1); MONO # 0.08 (0.24-0.82); MONO % 0.9 % (4.7-12.5); NEUT # 8.52 (1.56-6.13); NEUT % 95.2 % (34.0-71.1); RED CELL DISTRIBUTION WIDTH 18.1 % (11.6-14.4)
[2024-12-10 08:11] LABS: ALT/SGPT 9.0 U/L (12-78); AST/SGOT 12.0 U/L (15-37); BILIRUBIN TOTAL 0.35 mg/dL (0.3-1.2); BUN CREA RATIO 22.0 (7.0-25.0); CREATININE SERUM 2.32 mg/dL (0.55-1.02); GFR 20.94; GLOBULINA 3.4 G/DL (2.4-3.5); GLUCOSE FASTING 114.0 mg/dL (65-100); OSMOLALITY SERUM 281.0 MOSM/KG (275-295)
[2024-12-10 09:07] LABS: ABG PO2 90.5 mmHg (80-100); BICARBONATE 26.5 mmol/l (23-25)
[2024-12-10 09:29] LABS: BAND MAN 21.0 %; MONOCYTE MAN 2.0 %; NEUTROPHILS MAN 74.0 %
[2024-12-10] MEDS ORDERED: NOREPINEPHRINE BITARTRATE 8 MG in DEXTROSE 5 % IN WATER 250 ML IV SCH (09:30)
[2024-12-10 09:56] LABS: ABG PH 7.147 (7.35-7.45)
[2024-12-10 09:57] LABS: o2 40 %
[2024-12-10] MEDS ORDERED: PROPOFOL 10,000 MCG/ML VIAL IV ONE (11:00)
[2024-12-10 12:39] LABS: ABG PH 7.260 (7.35-7.45); ABG PO2 313.2 mmHg (80-100); BICARBONATE 25.3 mmol/l (23-25)
[2024-12-10 13:37] LABS: o2 100 %
[2024-12-10] MEDS ORDERED: POLYVINYL ALCOHOL 15 ML DROPS OP SCH (17:00)
[2024-12-10] MEDS ORDERED: CHLORHEXIDINE GLUCONATE 15ML BRUSH KIT MM SCH (17:00)
[2024-12-10] MEDS ORDERED: DEXTROSE 10 % IN WATER 1,000 ML IV ONE (22:30)
[2024-12-11] VITALS (12 sets, daily range): BP systolic 112–180; BP diastolic 47–61; O2SAT 94–100
[2024-12-11 06:16] LABS: BASO % 0.2 % (0.1-1.2); EOS # 0.04 (0.04-0.54); EOS % 0.5 % (0.7-7.0); LYMPH # 0.13 (1.18-3.74); LYMPH % 1.5 % (19.3-53.1); MONO # 0.10 (0.24-0.82); MONO % 1.2 % (4.7-12.5); NEUT # 7.94 (1.56-6.13); NEUT % 92.9 % (34.0-71.1); RED CELL DISTRIBUTION WIDTH 17.8 % (11.6-14.4)
[2024-12-11 06:44] LABS: ALT/SGPT 8.0 U/L (12-78); AST/SGOT 15.0 U/L (15-37); BILIRUBIN TOTAL 0.41 mg/dL (0.3-1.2); BUN CREA RATIO 24.0 (7.0-25.0); CREATININE SERUM 2.59 mg/dL (0.55-1.02); GFR 18.44; GLOBULINA 3.3 G/DL (2.4-3.5); GLUCOSE FASTING 85.0 mg/dL (65-100); OSMOLALITY SERUM 285.0 MOSM/KG (275-295)
[2024-12-11 08:49] LABS: BAND MAN 4.0 %; LYMPHOCYTE MAN 3.0 %; NEUTROPHILS MAN 93.0 %
[2024-12-11 12:27] LABS: ABG PH 7.382 (7.35-7.45); ABG PO2 81.6 mmHg (80-100); BICARBONATE 25.6 mmol/l (23-25)
[2024-12-11 12:28] LABS: o2 20 %
[2024-12-11] MEDS ORDERED: AA 4.25%/CAL/LYTES/DEXT 5% 1,000 ML PERIFERAL SCH (17:00)
[2024-12-11] MEDS ORDERED: AA 4.25%/CALCIUM/LYTES/DEX 10% 1,000 ML CENTRAL SCH (17:00)
[2024-12-11 18:40] LABS: BUN CREA RATIO 18.0 (7.0-25.0); CHOL HDL RATIO 2.2 (0-5.0); CREATININE SERUM 1.81 mg/dL (0.55-1.02); GFR 27.89; GLUCOSE FASTING 78.0 mg/dL (65-100); HDL 48.0 mg/dl (40-60); LDL 35.0 mg/dl (0-130); OSMOLALITY SERUM 276.0 MOSM/KG (275-295); VLDL 22.0 (0-39)
[2024-12-11] MEDS ORDERED: FAT EMULSIONS 250 ML IV SCH (21:00)
[2024-12-12 03:57] VITALS: BP 113/55; O2SAT 97
[2024-12-12 06:30] LABS: BASO % 0.2 % (0.1-1.2); EOS # 0.04 (0.04-0.54); EOS % 0.4 % (0.7-7.0); LYMPH # 0.39 (1.18-3.74); LYMPH % 4.0 % (19.3-53.1); MONO # 0.15 (0.24-0.82); MONO % 1.5 % (4.7-12.5); NEUT # 8.62 (1.56-6.13); NEUT % 88.0 % (34.0-71.1); RED CELL DISTRIBUTION WIDTH 17.0 % (11.6-14.4)
[2024-12-12 07:02] LABS: ALT/SGPT 9.0 U/L (12-78); AST/SGOT 23.0 U/L (15-37); BILIRUBIN TOTAL 0.53 mg/dL (0.3-1.2); BUN CREA RATIO 19.0 (7.0-25.0); CREATININE SERUM 2.09 mg/dL (0.55-1.02); GFR 23.62; GLOBULINA 3.3 G/DL (2.4-3.5); GLUCOSE FASTING 89.0 mg/dL (65-100); OSMOLALITY SERUM 274.0 MOSM/KG (275-295)
[2024-12-12 07:33] VITALS: BP 133/55; BP 179/76; O2SAT 98
[2024-12-12 08:50] LABS: BAND MAN 2.0 %; LYMPHOCYTE MAN 2.0 %; MONOCYTE MAN 2.0 %; NEUTROPHILS MAN 89.0 %
[2024-12-12 08:51] LABS: METAMYELOCYTE 5.0 %
[2024-12-12] MEDS ORDERED: IPRATROPIUM BROMIDE 0.5 MG/2.5 ML AMPUL.NEB IH SCH (09:00)
[2024-12-12] MEDS ORDERED: LEVALBUTEROL HCL 0.63 MG/3 ML SOLUTION IH SCH (09:00)
[2024-12-12 10:12] LABS: ABG PH 7.450 (7.35-7.45); ABG PO2 87.4 mmHg (80-100); BICARBONATE 22.9 mmol/l (23-25)
[2024-12-12 10:13] LABS: o2 50 %
[2024-12-12 15:50] VITALS: BP 161/72; O2SAT 100
[2024-12-12 20:00] VITALS: BP 122/62; O2SAT 100
[2024-12-13] VITALS (7 sets, daily range): BP systolic 137–165; BP diastolic 62–73; O2SAT 96–99
[2024-12-13 07:09] LABS: BASO % 0.2 % (0.1-1.2); EOS # 0.05 (0.04-0.54); EOS % 0.4 % (0.7-7.0); LYMPH # 0.31 (1.18-3.74); LYMPH % 2.5 % (19.3-53.1); MONO # 0.21 (0.24-0.82); MONO % 1.7 % (4.7-12.5); NEUT # 11.50 (1.56-6.13); NEUT % 91.4 % (34.0-71.1); RED CELL DISTRIBUTION WIDTH 16.6 % (11.6-14.4)
[2024-12-13 07:45] LABS: ALT/SGPT 9.0 U/L (12-78); AST/SGOT 20.0 U/L (15-37); BILIRUBIN TOTAL 0.63 mg/dL (0.3-1.2); BUN CREA RATIO 22.0 (7.0-25.0); CREATININE SERUM 2.76 mg/dL (0.55-1.02); GFR 17.14; GLOBULINA 3.6 G/DL (2.4-3.5); GLUCOSE FASTING 106.0 mg/dL (65-100); OSMOLALITY SERUM 280.0 MOSM/KG (275-295)
[2024-12-13 08:11] LABS: BAND MAN 5.0 %; EOSINOPHIL MAN 1.0 %; LYMPHOCYTE MAN 1.0 %; NEUTROPHILS MAN 93.0 %
[2024-12-13 08:38] LABS: ABG PH 7.346 (7.35-7.45); ABG PO2 82.9 mmHg (80-100); BICARBONATE 25.6 mmol/l (23-25)
[2024-12-13 08:54] LABS: o2 50 %
[2024-12-14 04:00] VITALS: BP 145/61; O2SAT 96
[2024-12-14 07:20] VITALS: BP 143/65; O2SAT 97
[2024-12-14 09:01] LABS: ABG PH 7.353 (7.35-7.45); ABG PO2 98.2 mmHg (80-100); BICARBONATE 28.4 mmol/l (23-25); o2 50 %
[2024-12-14 12:00] VITALS: BP 126/60; O2SAT 98
[2024-12-14 15:51] VITALS: BP 131/59; O2SAT 95
[2024-12-14 20:00] VITALS: BP 142/62; O2SAT 98
[2024-12-14 21:51] LABS: BASO % 0.2 % (0.1-1.2); EOS # 0.10 (0.04-0.54); EOS % 0.8 % (0.7-7.0); LYMPH # 0.27 (1.18-3.74); LYMPH % 2.2 % (19.3-53.1); MONO # 0.21 (0.24-0.82); MONO % 1.7 % (4.7-12.5); NEUT # 11.26 (1.56-6.13); NEUT % 91.8 % (34.0-71.1); RED CELL DISTRIBUTION WIDTH 15.6 % (11.6-14.4)
[2024-12-14 22:10] LABS: INR 1.15
[2024-12-14 22:12] LABS: EOSINOPHIL MAN 1.0 %; LYMPHOCYTE MAN 1.0 %; MONOCYTE MAN 1.0 %; MYELOCYTE 3.0 %; NEUTROPHILS MAN 94.0 %
[2024-12-14 22:27] LABS: ALT/SGPT 10.0 U/L (12-78); AST/SGOT 20.0 U/L (15-37); BILIRUBIN TOTAL 0.77 mg/dL (0.3-1.2); BUN CREA RATIO 24.0 (7.0-25.0); CREATININE SERUM 2.25 mg/dL (0.55-1.02); GFR 21.69; GLOBULINA 3.6 G/DL (2.4-3.5); GLUCOSE FASTING 131.0 mg/dL (65-100); OSMOLALITY SERUM 279.0 MOSM/KG (275-295)
[2024-12-14 23:47] VITALS: BP 133/59; O2SAT 98
[2024-12-15 04:00] VITALS: BP 145/70; O2SAT 97
[2024-12-15 07:40] VITALS: BP 148/69; O2SAT 98
[2024-12-15 09:50] LABS: ABG PH 7.278 (7.35-7.45); ABG PO2 183.7 mmHg (80-100); BICARBONATE 23.3 mmol/l (23-25)
[2024-12-15 09:51] LABS: o2 75 %
[2024-12-15 11:07] LABS: ABG PH 7.307 (7.35-7.45); ABG PO2 188.1 mmHg (80-100); BICARBONATE 23.1 mmol/l (23-25); o2 75 %
[2024-12-15 12:00] VITALS: BP 140/57; O2SAT 100
[2024-12-15 13:08] LABS: a:g ratio 1.0 (0.7-1.7); alpha 1 g 0.4 g/dL (0.0-0.4); beta g 0.7 g/dL (0.7-1.3); gamma g 0.8 g/dL (0.4-1.8); globulin t 2.6 g/dL (2.2-3.9); prot total 5.2 g/dL (6.0-8.5)
[2024-12-15 15:36] VITALS: BP 129/58; O2SAT 100
[2024-12-15 20:00] VITALS: BP 134/56; O2SAT 98
[2024-12-15 23:13] VITALS: BP 152/64; O2SAT 100
[2024-12-16 03:57] VITALS: BP 126/74; O2SAT 98
[2024-12-16 07:12] VITALS: BP 152/63; O2SAT 98
[2024-12-16 09:30] LABS: BASO % 0.3 % (0.1-1.2); EOS # 0.12 (0.04-0.54); EOS % 0.8 % (0.7-7.0); LYMPH # 0.32 (1.18-3.74); LYMPH % 2.2 % (19.3-53.1); MEAN PLATELET VOLUME 11.10 fl (9.4-12.4); MONO # 0.11 (0.24-0.82); MONO % 0.7 % (4.7-12.5); NEUT # 13.49 (1.56-6.13); NEUT % 90.6 % (34.0-71.1); RED CELL DISTRIBUTION WIDTH 15.9 % (11.6-14.4)
[2024-12-16 09:56] LABS: ABG PH 7.367 (7.35-7.45); ABG PO2 150.0 mmHg (80-100); BICARBONATE 26.2 mmol/l (23-25)
[2024-12-16 09:58] LABS: o2 75 %
[2024-12-16 11:40] LABS: ALT/SGPT 10.0 U/L (12-78); AST/SGOT 24.0 U/L (15-37); BILIRUBIN TOTAL 0.6 mg/dL (0.3-1.2); BUN CREA RATIO 22.0 (7.0-25.0); CREATININE SERUM 1.71 mg/dL (0.55-1.02); GFR 29.78; GLOBULINA 3.4 G/DL (2.4-3.5); GLUCOSE FASTING 86.0 mg/dL (65-100); OSMOLALITY SERUM 271.0 MOSM/KG (275-295)
[2024-12-16 12:00] VITALS: BP 149/58; O2SAT 97
[2024-12-16 12:08] LABS: BLAST MAN 1.0 %; EOSINOPHIL MAN 1.0 %; LYMPHOCYTE MAN 1.0 %; METAMYELOCYTE 1.0 %; MYELOCYTE 1.0 %; NEUTROPHILS MAN 95.0 %
[2024-12-16 15:36] VITALS: BP 134/57; O2SAT 98
[2024-12-16 20:50] VITALS: BP 146/65; O2SAT 100
[2024-12-16 23:34] VITALS: BP 144/65; O2SAT 95
[2024-12-17 04:00] VITALS: BP 135/56; BP 89/64; O2SAT 97
[2024-12-17 07:14] VITALS: BP 142/61; O2SAT 97
[2024-12-17 08:29] LABS: ABG PH 7.342 (7.35-7.45); ABG PO2 67.2 mmHg (80-100); BICARBONATE 23.7 mmol/l (23-25)
[2024-12-17] MEDS ORDERED: METHYLPREDNISOLONE SOD SUCC 40 MG VIAL IV SCH (09:00)
[2024-12-17 12:00] VITALS: BP 132/55; O2SAT 100
[2024-12-17 15:28] VITALS: BP 152/63; O2SAT 100
[2024-12-17 17:53] LABS: o2 65 %
[2024-12-17 20:42] VITALS: BP 139/68; O2SAT 100
[2024-12-17 23:00] VITALS: BP 152/62; O2SAT 100
[2024-12-18 04:07] VITALS: BP 158/67; O2SAT 100
[2024-12-18 06:17] LABS: BASO % 0.2 % (0.1-1.2); EOS # 0.00 (0.04-0.54); EOS % 0.0 % (0.7-7.0); LYMPH # 0.24 (1.18-3.74); LYMPH % 1.2 % (19.3-53.1); MEAN PLATELET VOLUME 11.00 fl (9.4-12.4); MONO # 0.02 (0.24-0.82); MONO % 0.1 % (4.7-12.5); NEUT # 19.05 (1.56-6.13); NEUT % 96.1 % (34.0-71.1); RED CELL DISTRIBUTION WIDTH 16.0 % (11.6-14.4)
[2024-12-18 07:06] VITALS: BP 127/60; O2SAT 100
[2024-12-18 07:15] LABS: ALT/SGPT 14.0 U/L (12-78); AST/SGOT 27.0 U/L (15-37); BILIRUBIN TOTAL 0.68 mg/dL (0.3-1.2); BILIRUBIN,CONJUGATED 0.18 mg/dL (0.0-0.2); BUN CREA RATIO 28.0 (7.0-25.0); CHOL HDL RATIO 7.3 (0-5.0); CREATININE SERUM 2.52 mg/dL (0.55-1.02); GFR 19.03; HDL 23.0 mg/dl (40-60); LDL 25.0 mg/dl (0-130); VLDL 121.0 (0-39)
[2024-12-18 07:16] LABS: GLUCOSE FASTING 214.0 mg/dL (65-100); OSMOLALITY SERUM 281.0 MOSM/KG (275-295)
[2024-12-18 07:18] LABS: INR 1.12
[2024-12-18 11:03] LABS: ABG PH 7.350 (7.35-7.45); ABG PO2 111.9 mmHg (80-100); BICARBONATE 26.0 mmol/l (23-25)
[2024-12-18 11:04] LABS: o2 75 %
[2024-12-18 12:00] VITALS: BP 147/66; O2SAT 100
[2024-12-18 15:17] VITALS: BP 144/64; O2SAT 100
[2024-12-18 21:14] VITALS: BP 130/61; O2SAT 100
[2024-12-18 23:26] VITALS: BP 136/66; O2SAT 100
[2024-12-19 04:00] VITALS: BP 143/62; O2SAT 100
[2024-12-19 07:32] VITALS: BP 148/62; O2SAT 100
[2024-12-19 09:19] LABS: ABG PH 7.332 (7.35-7.45); ABG PO2 136.4 mmHg (80-100); BICARBONATE 24.8 mmol/l (23-25)
[2024-12-19 09:21] LABS: o2 75 %
[2024-12-19 12:00] VITALS: BP 140/65; O2SAT 100
[2024-12-19 16:00] VITALS: BP 134/60; O2SAT 100
[2024-12-19 20:00] VITALS: BP 93/50; O2SAT 94
[2024-12-19 23:21] VITALS: BP 104/55; O2SAT 95
[2024-12-20 04:19] VITALS: BP 116/56; O2SAT 93
[2024-12-20 06:54] LABS: BASO % 0.2 % (0.1-1.2); EOS # 0.00 (0.04-0.54); EOS % 0.0 % (0.7-7.0); LYMPH # 0.22 (1.18-3.74); LYMPH % 1.0 % (19.3-53.1); MONO # 0.14 (0.24-0.82); MONO % 0.6 % (4.7-12.5); NEUT # 22.22 (1.56-6.13); NEUT % 97.0 % (34.0-71.1); RED CELL DISTRIBUTION WIDTH 15.8 % (11.6-14.4)
[2024-12-20 07:05] VITALS: BP 121/56; O2SAT 93
[2024-12-20 08:24] LABS: ABG PH 7.315 (7.35-7.45); ABG PO2 68.5 mmHg (80-100); BICARBONATE 22.8 mmol/l (23-25)
[2024-12-20 10:07] LABS: o2 50 %
[2024-12-20 12:00] VITALS: BP 117/57; O2SAT 95
[2024-12-20 12:27] LABS: BILIRUBIN TOTAL 1.10 mg/dL (0.3-1.2); CREATININE SERUM 2.45 mg/dL (0.55-1.02); GFR 19.66
[2024-12-20 12:44] LABS: ALT/SGPT 141 U/L (12-78); AST/SGOT 367 U/L (15-37)
[2024-12-20 12:47] LABS: OSMOLALITY SERUM 284 MOSM/KG (275-295)
[2024-12-20 12:48] LABS: GLOBULINA 3.4 G/DL (2.4-3.5); GLUCOSE FASTING 263 mg/dL (65-100)
[2024-12-20] MEDS ORDERED: 0.9 % SODIUM CHLORIDE 1,000 ML IV SCH (14:00)
[2024-12-20 15:01] VITALS: BP 101/55; O2SAT 95
[2024-12-20 20:00] VITALS: BP 125/59; O2SAT 95
[2024-12-20 23:07] VITALS: BP 125/55; O2SAT 96
[2024-12-21 04:00] VITALS: BP 130/56; O2SAT 100
[2024-12-21 06:23] LABS: BASO % 0.1 % (0.1-1.2); EOS # 0.01 (0.04-0.54); EOS % 0.0 % (0.7-7.0); LYMPH # 0.30 (1.18-3.74); LYMPH % 1.5 % (19.3-53.1); MONO # 0.11 (0.24-0.82); MONO % 0.5 % (4.7-12.5); NEUT # 19.79 (1.56-6.13); NEUT % 96.7 % (34.0-71.1); RED CELL DISTRIBUTION WIDTH 15.8 % (11.6-14.4)
[2024-12-21 06:41] LABS: BILIRUBIN TOTAL 0.80 mg/dL (0.3-1.2); CREATININE SERUM 1.62 mg/dL (0.55-1.02); GFR 31.69; GLUCOSE FASTING 186 mg/dL (65-100)
[2024-12-21 07:00] LABS: ALT/SGPT 107 U/L (12-78); AST/SGOT 193 U/L (15-37)
[2024-12-21 07:05] VITALS: BP 118/50; O2SAT 93
[2024-12-21 09:58] LABS: ABG PH 7.262 (7.35-7.45); ABG PO2 73.0 mmHg (80-100)
[2024-12-21 09:59] LABS: BICARBONATE 22.4 mmol/l (23-25)
[2024-12-21 10:04] LABS: o2 50 %
[2024-12-21 12:00] VITALS: BP 125/50; O2SAT 95
[2024-12-21 15:57] VITALS: BP 114/52; O2SAT 97
[2024-12-21 19:57] VITALS: BP 135/64; O2SAT 100
[2024-12-21 23:15] VITALS: BP 95/48; O2SAT 90
[2024-12-22 04:00] VITALS: BP 108/47; O2SAT 90
[2024-12-22 06:46] LABS: URINE APPEARANCE Turbid; URINE BILIRRUBIN Negative (NEGATIVE); URINE BLOOD Small; URINE COLOR Dark Yellow; URINE GLUCOSE Negative (NEGATIVE); URINE KETONE Negative (NEGATIVE); URINE LEUKOCYTE Moderate; URINE NITRATE Positive; URINE UROBILINOGEN 0.2 E.U./dl
[2024-12-22 06:49] LABS: URINE EPITHELIAL CELLS 169.4 uL (0.0-38.8); URINE RBC 658.6 uL (0.0-20.8)
[2024-12-22 06:55] LABS: BASO % 0.1 % (0.1-1.2); EOS # 0.04 (0.04-0.54); EOS % 0.2 % (0.7-7.0); LYMPH # 0.29 (1.18-3.74); LYMPH % 1.3 % (19.3-53.1); MONO # 0.09 (0.24-0.82); MONO % 0.4 % (4.7-12.5); NEUT # 22.26 (1.56-6.13); NEUT % 97.0 % (34.0-71.1); RED CELL DISTRIBUTION WIDTH 15.6 % (11.6-14.4)
[2024-12-22 07:00] LABS: URINE BACTERIA > 9821.5 uL (0.0-1933); URINE CAST > 21.83 uL (0.0-1.40); URINE CRYSTALS MODERATE /HPF; URINE PROTEIN 300 (NEGATIVE); URINE WBC > 5548.3 uL (0.0-23.2); URINE YEAST FEW /hpf
[2024-12-22 07:01] LABS: TYPE CELLS SQUAMOUS
[2024-12-22 07:05] VITALS: BP 101/51; O2SAT 91
[2024-12-22 07:34] LABS: ALT/SGPT 68.0 U/L (12-78); AST/SGOT 55.0 U/L (15-37); BILIRUBIN TOTAL 0.49 mg/dL (0.3-1.2); BUN CREA RATIO 31.0 (7.0-25.0); CREATININE SERUM 1.88 mg/dL (0.55-1.02); GFR 26.69; GLOBULINA 3.0 G/DL (2.4-3.5); GLUCOSE FASTING 100.0 mg/dL (65-100); OSMOLALITY SERUM 277.0 MOSM/KG (275-295)
[2024-12-22 07:57] LABS: ABG PH 7.338 (7.35-7.45)
[2024-12-22 07:58] LABS: ABG PO2 73.3 mmHg (80-100); BICARBONATE 24.0 mmol/l (23-25)
[2024-12-22 07:59] LABS: o2 50 %
[2024-12-22 12:00] VITALS: BP 105/47; O2SAT 90
[2024-12-22 16:00] VITALS: BP 124/46; O2SAT 92
[2024-12-22 20:00] VITALS: BP 117/46; O2SAT 95
[2024-12-22 23:19] VITALS: BP 112/42; O2SAT 95
[2024-12-23 04:09] VITALS: BP 115/46; O2SAT 91
[2024-12-23 07:58] VITALS: BP 118/55; O2SAT 95
[2024-12-23 11:36] LABS: ABG PH 7.309 (7.35-7.45); ABG PO2 73.2 mmHg (80-100); BICARBONATE 27.9 mmol/l (23-25)
[2024-12-23 11:37] LABS: o2 75 %
[2024-12-23] MEDS ORDERED: [UNRECOGNIZED DRUG - OTHER] IV SCH (14:00)
[2024-12-23 15:26] VITALS: BP 106/49; O2SAT 88
[2024-12-23 20:00] VITALS: BP 117/51; O2SAT 92
[2024-12-23 23:34] VITALS: BP 134/52; O2SAT 92
[2024-12-24] VITALS (7 sets, daily range): BP systolic 111–131; BP diastolic 43–56; O2SAT 95–100
[2024-12-24 09:39] LABS: BASO % 0.1 % (0.1-1.2); EOS # 0.06 (0.04-0.54); EOS % 0.5 % (0.7-7.0); LYMPH # 0.18 (1.18-3.74); LYMPH % 1.5 % (19.3-53.1); MEAN PLATELET VOLUME 10.50 fl (9.4-12.4); MONO # 0.11 (0.24-0.82); MONO % 0.9 % (4.7-12.5); NEUT # 11.60 (1.56-6.13); NEUT % 95.4 % (34.0-71.1); RED CELL DISTRIBUTION WIDTH 15.7 % (11.6-14.4)
[2024-12-24 10:07] LABS: BAND MAN 1.0 %; LYMPHOCYTE MAN 2.0 %; METAMYELOCYTE 1.0 %; MONOCYTE MAN 2.0 %; NEUTROPHILS MAN 94.0 %
[2024-12-24 10:28] LABS: ALT/SGPT 46.0 U/L (12-78); AST/SGOT 33.0 U/L (15-37); BILIRUBIN TOTAL 0.56 mg/dL (0.3-1.2); BUN CREA RATIO 29.0 (7.0-25.0); CREATININE SERUM 1.68 mg/dL (0.55-1.02); GFR 30.39; GLOBULINA 3.3 G/DL (2.4-3.5); GLUCOSE FASTING 133.0 mg/dL (65-100); OSMOLALITY SERUM 285.0 MOSM/KG (275-295)
[2024-12-24 10:35] LABS: ABG PH 7.284 (7.35-7.45); BICARBONATE 24.7 mmol/l (23-25)
[2024-12-24 11:09] LABS: ABG PO2 50.6 mmHg (80-100)
[2024-12-24 11:10] LABS: o2 100 %
[2024-12-24] MEDS ORDERED: POTASSIUM CHLORIDE IN WATER 100 ML IV NR (15:15)
[2024-12-25 04:00] VITALS: BP 119/46; O2SAT 100
[2024-12-25 07:26] VITALS: BP 118/47; O2SAT 100
[2024-12-25 07:32] LABS: BASO % 0.1 % (0.1-1.2); EOS # 0.13 (0.04-0.54); EOS % 1.3 % (0.7-7.0); LYMPH # 0.32 (1.18-3.74); LYMPH % 3.2 % (19.3-53.1); MEAN PLATELET VOLUME 10.20 fl (9.4-12.4); MONO # 0.08 (0.24-0.82); MONO % 0.8 % (4.7-12.5); NEUT # 8.64 (1.56-6.13); NEUT % 87.3 % (34.0-71.1); RED CELL DISTRIBUTION WIDTH 16.0 % (11.6-14.4)
[2024-12-25 08:05] LABS: ALT/SGPT 35.0 U/L (12-78); AST/SGOT 21.0 U/L (15-37); BILIRUBIN TOTAL 0.46 mg/dL (0.3-1.2); BUN CREA RATIO 28.0 (7.0-25.0); CREATININE SERUM 1.97 mg/dL (0.55-1.02); GFR 25.29; GLOBULINA 3.4 G/DL (2.4-3.5); GLUCOSE FASTING 92.0 mg/dL (65-100); OSMOLALITY SERUM 285.0 MOSM/KG (275-295)
[2024-12-25 08:34] LABS: BAND MAN 3.0 %; EOSINOPHIL MAN 3.0 %; LYMPHOCYTE MAN 3.0 %; METAMYELOCYTE 2.0 %; MONOCYTE MAN 3.0 %; NEUTROPHILS MAN 86.0 %
[2024-12-25 10:28] LABS: ABG PH 7.268 (7.35-7.45); ABG PO2 128.8 mmHg (80-100); BICARBONATE 23.8 mmol/l (23-25)
[2024-12-25 10:29] LABS: o2 100 %
[2024-12-25 12:00] VITALS: BP 122/48; O2SAT 100
[2024-12-25 12:09] LABS: ABG PH 7.319 (7.35-7.45); ABG PO2 101.1 mmHg (80-100); BICARBONATE 22.8 mmol/l (23-25)
[2024-12-25 12:10] LABS: o2 100 %
[2024-12-25 15:33] VITALS: BP 140/43; O2SAT 100
[2024-12-25 20:00] VITALS: BP 124/63; BP 140/49; O2SAT 100
[2024-12-25 23:28] VITALS: BP 144/69; O2SAT 100
[2024-12-26] VITALS (10 sets, daily range): BP systolic 119–134; BP diastolic 48–64; O2SAT 98–100
[2024-12-26 06:30] LABS: BASO % 0.1 % (0.1-1.2); EOS # 0.13 (0.04-0.54); EOS % 1.3 % (0.7-7.0); LYMPH # 0.30 (1.18-3.74); LYMPH % 3.0 % (19.3-53.1); MEAN PLATELET VOLUME 10.40 fl (9.4-12.4); MONO # 0.13 (0.24-0.82); MONO % 1.3 % (4.7-12.5); NEUT # 9.23 (1.56-6.13); NEUT % 91.7 % (34.0-71.1); RED CELL DISTRIBUTION WIDTH 16.1 % (11.6-14.4)
[2024-12-26 07:15] LABS: ALT/SGPT 27.0 U/L (12-78); AST/SGOT 21.0 U/L (15-37); BILIRUBIN TOTAL 0.46 mg/dL (0.3-1.2); BUN CREA RATIO 33.0 (7.0-25.0); CREATININE SERUM 1.35 mg/dL (0.55-1.02); GFR 39.11; GLOBULINA 3.1 G/DL (2.4-3.5); GLUCOSE FASTING 145.0 mg/dL (65-100); OSMOLALITY SERUM 288.0 MOSM/KG (275-295)
[2024-12-26] MEDS ORDERED: PROPOFOL 100 ML IV SCH (08:45)
[2024-12-26] MEDS ORDERED: POTASSIUM CHLORIDE IN WATER 40 MEQ/100 ML PIGGYBAG IV SCH (09:00)
[2024-12-26] MEDS ORDERED: POTASSIUM CHLORIDE IN WATER 40 MEQ/100 ML PIGGYBAG IV NR (17:40)
[2024-12-27] VITALS (8 sets, daily range): BP systolic 103–139; BP diastolic 46–56; O2SAT 98–100
[2024-12-27 10:58] LABS: ABG PH 7.365 (7.35-7.45); ABG PO2 73.9 mmHg (80-100); BICARBONATE 28.1 mmol/l (23-25)
[2024-12-27 10:59] LABS: o2 100 %
[2024-12-28] VITALS (12 sets, daily range): BP systolic 110–156; BP diastolic 40–63; O2SAT 100
[2024-12-28 06:26] LABS: BASO % 0.2 % (0.1-1.2); EOS # 0.20 (0.04-0.54); EOS % 2.3 % (0.7-7.0); LYMPH # 0.40 (1.18-3.74); LYMPH % 4.6 % (19.3-53.1); MONO # 0.17 (0.24-0.82); MONO % 2.0 % (4.7-12.5); NEUT # 7.23 (1.56-6.13); NEUT % 83.6 % (34.0-71.1); RED CELL DISTRIBUTION WIDTH 17.3 % (11.6-14.4)
[2024-12-28 06:58] LABS: ALT/SGPT 20.0 U/L (12-78); AST/SGOT 26.0 U/L (15-37); BILIRUBIN TOTAL 0.58 mg/dL (0.3-1.2); BUN CREA RATIO 28.0 (7.0-25.0); CREATININE SERUM 1.27 mg/dL (0.55-1.02); GFR 41.97; GLOBULINA 3.1 G/DL (2.4-3.5); GLUCOSE FASTING 83.0 mg/dL (65-100); OSMOLALITY SERUM 279.0 MOSM/KG (275-295)
[2024-12-28 14:44] LABS: ABG PH 7.336 (7.35-7.45); ABG PO2 81.9 mmHg (80-100); BICARBONATE 26.4 mmol/l (23-25)
[2024-12-28 14:45] LABS: o2 100 %
[2024-12-28] MEDS ORDERED: ANIDULAFUNGIN 100 MG VIAL IV NR (16:00)
[2024-12-28 21:07] LABS: GIARDIA LAMBLIA EIA Negative (Negative)
[2024-12-29] VITALS (10 sets, daily range): BP systolic 110–163; BP diastolic 54–70; O2SAT 96–100
[2024-12-29 11:26] LABS: ABG PH 7.312 (7.35-7.45)
[2024-12-29 11:27] LABS: ABG PO2 60.4 mmHg (80-100); BICARBONATE 25.4 mmol/l (23-25)
[2024-12-29 11:28] LABS: o2 100 %
[2024-12-29] MEDS ORDERED: ANIDULAFUNGIN 100 MG VIAL IV SCH (12:00)
[2024-12-30] VITALS (14 sets, daily range): BP systolic 132–175; BP diastolic 53–76; O2SAT 23–100
[2024-12-30 07:34] LABS: BASO % 0.4 % (0.1-1.2); EOS # 0.15 (0.04-0.54); EOS % 1.6 % (0.7-7.0); LYMPH # 0.39 (1.18-3.74); LYMPH % 4.1 % (19.3-53.1); MEAN PLATELET VOLUME 11.00 fl (9.4-12.4); MONO # 0.28 (0.24-0.82); MONO % 3.0 % (4.7-12.5); NEUT # 8.09 (1.56-6.13); NEUT % 85.4 % (34.0-71.1); RED CELL DISTRIBUTION WIDTH 16.2 % (11.6-14.4)
[2024-12-30 08:01] LABS: ALT/SGPT 18.0 U/L (12-78); AST/SGOT 20.0 U/L (15-37); BILIRUBIN TOTAL 0.67 mg/dL (0.3-1.2); BUN CREA RATIO 31.0 (7.0-25.0); CREATININE SERUM 1.46 mg/dL (0.55-1.02); GFR 35.73; GLOBULINA 3.5 G/DL (2.4-3.5); GLUCOSE FASTING 64.0 mg/dL (65-100); OSMOLALITY SERUM 280.0 MOSM/KG (275-295)
[2024-12-30 09:03] LABS: ABG PH 7.233 (7.35-7.45)
[2024-12-30 09:04] LABS: ABG PO2 69.5 mmHg (80-100); BICARBONATE 26.5 mmol/l (23-25)
[2024-12-30 09:05] LABS: o2 100 %
[2024-12-31] VITALS (12 sets, daily range): BP systolic 139–165; BP diastolic 61–71; O2SAT 100
[2024-12-31 12:27] LABS: ABG PH 7.205 (7.35-7.45)
[2024-12-31 12:28] LABS: ABG PO2 77.0 mmHg (80-100); BICARBONATE 26.0 mmol/l (23-25)
[2024-12-31 12:29] LABS: o2 100 %
[2024-12-31 15:07] LABS: campy Final report (.)
[2025-01-01] VITALS (14 sets, daily range): BP systolic 107–164; BP diastolic 48–83; O2SAT 96–100
[2025-01-01 07:11] LABS: BASO % 0.2 % (0.1-1.2); EOS # 0.06 (0.04-0.54); EOS % 0.6 % (0.7-7.0); LYMPH # 0.31 (1.18-3.74); LYMPH % 3.3 % (19.3-53.1); MEAN PLATELET VOLUME 12.00 fl (9.4-12.4); MONO # 0.22 (0.24-0.82); MONO % 2.4 % (4.7-12.5); NEUT # 8.40 (1.56-6.13); NEUT % 90.5 % (34.0-71.1); RED CELL DISTRIBUTION WIDTH 16.4 % (11.6-14.4)
[2025-01-01 07:30] LABS: ALT/SGPT 14.0 U/L (12-78); AST/SGOT 19.0 U/L (15-37); BILIRUBIN TOTAL 0.57 mg/dL (0.3-1.2); BUN CREA RATIO 37.0 (7.0-25.0); CREATININE SERUM 1.88 mg/dL (0.55-1.02); GFR 26.69; GLOBULINA 3.4 G/DL (2.4-3.5); GLUCOSE FASTING 119.0 mg/dL (65-100); OSMOLALITY SERUM 282.0 MOSM/KG (275-295)
[2025-01-01 09:35] LABS: ABG PH 7.205 (7.35-7.45)
[2025-01-01 09:36] LABS: ABG PO2 86.6 mmHg (80-100); BICARBONATE 24.3 mmol/l (23-25)
[2025-01-01 09:40] LABS: o2 21 %
[2025-01-02] VITALS (9 sets, daily range): BP systolic 118–167; BP diastolic 53–70; O2SAT 85–100
[2025-01-02] MEDS ORDERED: LANSOPRAZOLE 30 MG CAPSULE GT SCH (09:00)
[2025-01-02 09:40] LABS: ABG PH 7.224 (7.35-7.45); ABG PO2 93.5 mmHg (80-100); BICARBONATE 26.1 mmol/l (23-25)
[2025-01-02 09:41] LABS: o2 100 %
[2025-01-02] MEDS ORDERED: LORazepam 2 MG/ML VIAL IV PRN (20:45)
[2025-01-03 04:00] VITALS: BP 116/53; O2SAT 100
[2025-01-03 06:53] LABS: BASO % 0.2 % (0.1-1.2); EOS # 0.06 (0.04-0.54); EOS % 0.5 % (0.7-7.0); LYMPH # 0.24 (1.18-3.74); LYMPH % 1.9 % (19.3-53.1); MONO # 0.20 (0.24-0.82); MONO % 1.6 % (4.7-12.5); NEUT # 11.93 (1.56-6.13); NEUT % 94.5 % (34.0-71.1); RED CELL DISTRIBUTION WIDTH 16.0 % (11.6-14.4)
[2025-01-03 07:00] LABS: ALT/SGPT 9.0 U/L (12-78); AST/SGOT 16.0 U/L (15-37); BILIRUBIN TOTAL 0.59 mg/dL (0.3-1.2); BUN CREA RATIO 31.0 (7.0-25.0); CREATININE SERUM 1.75 mg/dL (0.55-1.02); GFR 28.99; GLOBULINA 3.2 G/DL (2.4-3.5); GLUCOSE FASTING 91.0 mg/dL (65-100); OSMOLALITY SERUM 284.0 MOSM/KG (275-295)
[2025-01-03 07:14] VITALS: BP 120/63; O2SAT 100
[2025-01-03 12:11] LABS: ABG PH 7.160 (7.35-7.45)
[2025-01-03 12:12] LABS: ABG PO2 170.1 mmHg (80-100); BICARBONATE 26.0 mmol/l (23-25)
[2025-01-03 12:13] LABS: o2 100 %
[2025-01-03] MEDS ORDERED: NOREPINEPHRINE BITARTRATE 8 MG in DEXTROSE 5 % IN WATER 250 ML IV SCH (14:15)
[2025-01-03 14:17] VITALS: BP 76/40; O2SAT 100
[2025-01-03 21:41] VITALS: BP 140/68; O2SAT 100
[2025-01-03 23:26] VITALS: BP 141/57; O2SAT 100
[2025-01-04 04:00] VITALS: BP 136/66; O2SAT 100
[2025-01-04 06:59] VITALS: BP 124/59; O2SAT 100
[2025-01-04 12:00] VITALS: BP 128/51; O2SAT 100
[2025-01-04 12:48] LABS: ABG PH 7.322 (7.35-7.45); ABG PO2 137.7 mmHg (80-100)
[2025-01-04 12:49] LABS: BICARBONATE 25.1 mmol/l (23-25); o2 100 %
[2025-01-04 15:42] VITALS: BP 117/49; O2SAT 100
[2025-01-04 20:00] VITALS: BP 119/60; O2SAT 100
[2025-01-04 23:29] VITALS: BP 119/61; O2SAT 100
[2025-01-05] VITALS (22 sets, daily range): BP systolic 94–187; BP diastolic 38–77; O2SAT 94–100
[2025-01-05] MEDS ORDERED: ATROPINE SULFATE 0.1 MG/ML DISP.SYRIN IV STA (01:08)
[2025-01-05 06:43] LABS: BASO % 0.1 % (0.1-1.2); EOS # 0.07 (0.04-0.54); EOS % 0.4 % (0.7-7.0); LYMPH # 0.34 (1.18-3.74); LYMPH % 2.1 % (19.3-53.1); MEAN PLATELET VOLUME 12.10 fl (9.4-12.4); MONO # 0.32 (0.24-0.82); MONO % 2.0 % (4.7-12.5); NEUT # 15.37 (1.56-6.13); NEUT % 94.5 % (34.0-71.1); RED CELL DISTRIBUTION WIDTH 16.0 % (11.6-14.4)
[2025-01-05 07:08] LABS: ALT/SGPT 11.0 U/L (12-78); AST/SGOT 18.0 U/L (15-37); BILIRUBIN TOTAL 0.64 mg/dL (0.3-1.2); BUN CREA RATIO 31.0 (7.0-25.0); CREATININE SERUM 1.66 mg/dL (0.55-1.02); GFR 30.81; GLOBULINA 3.5 G/DL (2.4-3.5); GLUCOSE FASTING 131.0 mg/dL (65-100); OSMOLALITY SERUM 282.0 MOSM/KG (275-295)
[2025-01-05] MEDS ORDERED: DOPamine HCL IN DEXTROSE 5 % 250 ML IV SCH (09:15)
[2025-01-05 09:26] LABS: ABG PH 7.152 (7.35-7.45)
[2025-01-05 09:27] LABS: ABG PO2 96.0 mmHg (80-100); BICARBONATE 26.2 mmol/l (23-25)
[2025-01-05 09:28] LABS: o2 100 %
[2025-01-05] MEDS ORDERED: POTASSIUM CHLORIDE IN WATER 100 ML IV NR (13:00)
[2025-01-05] MEDS ORDERED: POTASSIUM CHLORIDE IN WATER 40 MEQ/100 ML PIGGYBAG IV ONE (16:42)
[2025-01-05] MEDS ORDERED: GENTAMICIN SULFATE 40 MG/ML VIAL IV NR (17:30)
[2025-01-06] VITALS (16 sets, daily range): BP systolic 66–156; BP diastolic 36–64; O2SAT 34–100
[2025-01-06] MEDS ORDERED: ATROPINE SULFATE 0.4 MG/ML VIAL IV STA (06:50)
[2025-01-06 07:40] LABS: BASO % 0.1 % (0.1-1.2); EOS # 0.06 (0.04-0.54); EOS % 0.5 % (0.7-7.0); LYMPH # 0.25 (1.18-3.74); LYMPH % 1.9 % (19.3-53.1); MEAN PLATELET VOLUME 12.10 fl (9.4-12.4); MONO # 0.37 (0.24-0.82); MONO % 2.9 % (4.7-12.5); NEUT # 12.02 (1.56-6.13); NEUT % 93.7 % (34.0-71.1); RED CELL DISTRIBUTION WIDTH 16.3 % (11.6-14.4)
[2025-01-06 07:48] LABS: ALT/SGPT 10.0 U/L (12-78); AST/SGOT 18.0 U/L (15-37); BILIRUBIN TOTAL 0.58 mg/dL (0.3-1.2); BUN CREA RATIO 27.0 (7.0-25.0); CREATININE SERUM 1.36 mg/dL (0.55-1.02); GFR 38.78; GLOBULINA 3.6 G/DL (2.4-3.5); GLUCOSE FASTING 132.0 mg/dL (65-100); OSMOLALITY SERUM 277.0 MOSM/KG (275-295)
[2025-01-06 08:47] LABS: BICARBONATE 29.0 mmol/l (23-25)
[2025-01-06 09:24] LABS: ABG PH 6.828 (7.35-7.45); ABG PO2 25.6 mmHg (80-100)
[2025-01-06 09:25] LABS: o2 100 %
[2025-01-06] MEDS ORDERED: NOREPINEPHRINE BITARTRATE 1 MG/ML AMPUL IV ONE (12:49)
[2025-01-08] MEDS ORDERED: VANCOMYCIN HCL 500 MG VIAL IV NR (09:00)
== END 2025-01-06 15:39 | disposition expired | DRG 853 ==
LOC: ER 14:06 → SURG 21:55 → ICU 21:55 → MEDI 21:55 → MEDJ 11-15 21:20 → ICU 11-16 20:15
PROVIDERS: General Practice; Internal Medicine; Internal Medicine Hematology & Oncology; Internal Medicine Infectious Disease; Internal Medicine Nephrology; Specialist; ADMIT Internal Medicine; ATTEND Internal Medicine
PROC: BW21ZZZ Computerized Tomography (CT Scan) of Abdomen and Pelvis (ICD-10-PCS; 2024-11-12)
PROC: B246ZZZ Ultrasonography of Right and Left Heart (ICD-10-PCS; 2024-11-13)
PROC: 4A12X4Z Monitoring of Cardiac Electrical Activity, External Approach (ICD-10-PCS; 2024-11-13)
PROC: BT4JZZZ Ultrasonography of Kidneys and Bladder (ICD-10-PCS; 2024-11-14)
PROC: 30233N1 Transfusion of Nonautologous Red Blood Cells into Peripheral Vein, Percutaneous Approach (ICD-10-PCS; 2024-11-15)
PROC: 06HY33Z Insertion of Infusion Device into Lower Vein, Percutaneous Approach (ICD-10-PCS; 2024-11-16)
PROC: 05HM33Z Insertion of Infusion Device into Right Internal Jugular Vein, Percutaneous Approach (ICD-10-PCS; 2024-11-16)
PROC: B543ZZA Ultrasonography of Right Jugular Veins, Guidance (ICD-10-PCS; 2024-11-16)
PROC: 5A1D70Z Performance of Urinary Filtration, Intermittent, Less than 6 Hours Per Day (ICD-10-PCS; 2024-11-18)
PROC: 5A1D70Z Performance of Urinary Filtration, Intermittent, Less than 6 Hours Per Day (ICD-10-PCS; 2024-11-20)
PROC: 5A1D70Z Performance of Urinary Filtration, Intermittent, Less than 6 Hours Per Day (ICD-10-PCS; 2024-11-22)
PROC: BB24YZZ Computerized Tomography (CT Scan) of Bilateral Lungs using Other Contrast (ICD-10-PCS; 2024-11-23)
PROC: 5A1D70Z Performance of Urinary Filtration, Intermittent, Less than 6 Hours Per Day (ICD-10-PCS; 2024-11-24)
PROC: 8E0ZXY6 Isolation (ICD-10-PCS; 2024-11-25)
PROC: 0D9670Z Drainage of Stomach with Drainage Device, Via Natural or Artificial Opening (ICD-10-PCS; 2024-11-26)
PROC: XW033E5 Introduction of Remdesivir Anti-infective into Peripheral Vein, Percutaneous Approach, New Technology Group 5 (ICD-10-PCS; 2024-11-26)
PROC: 0BH17EZ Insertion of Endotracheal Airway into Trachea, Via Natural or Artificial Opening (ICD-10-PCS; 2024-11-26)
PROC: 5A1955Z Respiratory Ventilation, Greater than 96 Consecutive Hours (ICD-10-PCS; 2024-11-26)
PROC: 5A1D70Z Performance of Urinary Filtration, Intermittent, Less than 6 Hours Per Day (ICD-10-PCS; 2024-11-27)
PROC: 05HY33Z Insertion of Infusion Device into Upper Vein, Percutaneous Approach (ICD-10-PCS; 2024-11-28)
PROC: 3E03329 Introduction of Other Anti-infective into Peripheral Vein, Percutaneous Approach (ICD-10-PCS; 2024-11-28)
PROC: 0BP1XDZ Removal of Intraluminal Device from Trachea, External Approach (ICD-10-PCS; 2024-11-28)
PROC: 5A1D70Z Performance of Urinary Filtration, Intermittent, Less than 6 Hours Per Day (ICD-10-PCS; 2024-12-01)
PROC: B54DZZZ Ultrasonography of Bilateral Lower Extremity Veins (ICD-10-PCS; 2024-12-01)
PROC: 30243R1 Transfusion of Nonautologous Platelets into Central Vein, Percutaneous Approach (ICD-10-PCS; 2024-12-01)
PROC: 5A1D70Z Performance of Urinary Filtration, Intermittent, Less than 6 Hours Per Day (ICD-10-PCS; 2024-12-02)
PROC: B54NZZZ Ultrasonography of Left Upper Extremity Veins (ICD-10-PCS; 2024-12-03)
PROC: 5A1D70Z Performance of Urinary Filtration, Intermittent, Less than 6 Hours Per Day (ICD-10-PCS; 2024-12-04)
PROC: 5A1D70Z Performance of Urinary Filtration, Intermittent, Less than 6 Hours Per Day (ICD-10-PCS; 2024-12-06)
PROC: 5A1D70Z Performance of Urinary Filtration, Intermittent, Less than 6 Hours Per Day (ICD-10-PCS; 2024-12-08)
PROC: B020ZZZ Computerized Tomography (CT Scan) of Brain (ICD-10-PCS; 2024-12-09)
PROC: 5A1D70Z Performance of Urinary Filtration, Intermittent, Less than 6 Hours Per Day (ICD-10-PCS; 2024-12-11)
PROC: 5A1D70Z Performance of Urinary Filtration, Intermittent, Less than 6 Hours Per Day (ICD-10-PCS; 2024-12-13)
PROC: 5A1D70Z Performance of Urinary Filtration, Intermittent, Less than 6 Hours Per Day (ICD-10-PCS; 2024-12-15)
PROC: 5A1D70Z Performance of Urinary Filtration, Intermittent, Less than 6 Hours Per Day (ICD-10-PCS; 2024-12-18)
PROC: 0DH Gastrointestinal System, Insertion (ICD-10-PCS; 2024-12-19)
PROC: 0DH63UZ Insertion of Feeding Device into Stomach, Percutaneous Approach (ICD-10-PCS; 2024-12-19)
PROC: 0DP60UZ Removal of Feeding Device from Stomach, Open Approach (ICD-10-PCS; principal; 2024-12-19 19:00)
PROC: 5A1D70Z Performance of Urinary Filtration, Intermittent, Less than 6 Hours Per Day (ICD-10-PCS; 2024-12-20)
PROC: 3E0G76Z Introduction of Nutritional Substance into Upper GI, Via Natural or Artificial Opening (ICD-10-PCS; 2024-12-20)
PROC: 5A1D70Z Performance of Urinary Filtration, Intermittent, Less than 6 Hours Per Day (ICD-10-PCS; 2024-12-22)
PROC: 30243L1 Transfusion of Nonautologous Fresh Plasma into Central Vein, Percutaneous Approach (ICD-10-PCS; 2024-12-23)
PROC: 5A1D70Z Performance of Urinary Filtration, Intermittent, Less than 6 Hours Per Day (ICD-10-PCS; 2024-12-25)
PROC: 5A1D70Z Performance of Urinary Filtration, Intermittent, Less than 6 Hours Per Day (ICD-10-PCS; 2024-12-27)
PROC: 5A1D70Z Performance of Urinary Filtration, Intermittent, Less than 6 Hours Per Day (ICD-10-PCS; 2024-12-29)
PROC: 5A1D70Z Performance of Urinary Filtration, Intermittent, Less than 6 Hours Per Day (ICD-10-PCS; 2025-01-01)
PROC: B020ZZZ Computerized Tomography (CT Scan) of Brain (ICD-10-PCS; 2025-01-02)
PROC: 5A1D70Z Performance of Urinary Filtration, Intermittent, Less than 6 Hours Per Day (ICD-10-PCS; 2025-01-03)
PROC: 5A1D70Z Performance of Urinary Filtration, Intermittent, Less than 6 Hours Per Day (ICD-10-PCS; 2025-01-05)
DX: B37.7 Candidal sepsis (principal); G92.8 Other toxic encephalopathy; J80 Acute respiratory distress syndrome; J12.82 Pneumonia due to coronavirus disease 2019; U07.1 COVID-19; I50.33 Acute on chronic diastolic (congestive) heart failure; N17.9 Acute kidney failure, unspecified; I31.39 Other pericardial effusion (noninflammatory); J90 Pleural effusion, not elsewhere classified; K56.7 Ileus, unspecified; I13.2 Hypertensive heart and chronic kidney disease with heart failure and with stage 5 chronic kidney disease, or end stage renal disease; I82.491 Acute embolism and thrombosis of other specified deep vein of right lower extremity; I82.622 Acute embolism and thrombosis of deep veins of left upper extremity; E87.0 Hyperosmolality and hypernatremia; E87.21 Acute metabolic acidosis; N18.5 Chronic kidney disease, stage 5; A08.4 Viral intestinal infection, unspecified; B37.49 Other urogenital candidiasis; B37.31 Acute candidiasis of vulva and vagina; T80.89XA Other complications following infusion, transfusion and therapeutic injection, initial encounter; K62.89 Other specified diseases of anus and rectum; E86.0 Dehydration; I95.89 Other hypotension; E11.65 Type 2 diabetes mellitus with hyperglycemia; R45.1 Restlessness and agitation; R13.10 Dysphagia, unspecified; R56.9 Unspecified convulsions; D64.89 Other specified anemias; R16.0 Hepatomegaly, not elsewhere classified; E11.22 Type 2 diabetes mellitus with diabetic chronic kidney disease; D63.1 Anemia in chronic kidney disease; F10.20 Alcohol dependence, uncomplicated; F17.201 Nicotine dependence, unspecified, in remission; Z88.6 Allergy status to analgesic agent; Z66 Do not resuscitate; Z99.2 Dependence on renal dialysis; Y65.8 Other specified misadventures during surgical and medical care; Y92.230 Patient room in hospital as the place of occurrence of the external cause; B96.1 Klebsiella pneumoniae [K. pneumoniae] as the cause of diseases classified elsewhere; B95.7 Other staphylococcus as the cause of diseases classified elsewhere; Z93.0 Tracheostomy status; Z79.4 Long term (current) use of insulin
CPT/HCPCS: 31600; 43762; 90935; 74176; 93306; 76770; 36430 ×3; 93228; 43753; 71270 ×2; 76937; 36556 ×2; 93970; 93971 ×2; 70450 ×2; 36573; 31500; 94002; J0248; C9248; J0714; 71275